=== PATIENT | female | born 1930 | race Caucasian/White ===

== ENCOUNTER 2018-02-01 08:36 | Emergency (ER) | payer MEDICARE, BC ==
[2018-02-01] MEDS ORDERED: Sodium Chloride 0.9% 10 ML Syringe FLUSH PRN (09:11)
[2018-02-01 09:57] LABS: ANION GAP 15.7
--- NOTE | 2018-02-01 10:02 | EDM.PDOC ---
ED HPI GENERAL MEDICAL PROBLEM - General Chief Complaint: Chest Pain Stated Complaint: SOB, CHEST PAIN [phone] Time Seen by Provider: 02/01/18 09:06 Source of Information: Reports: Patient, RN, RN Notes Reviewed History Limitations: Reports: No Limitations - History of Present Illness INITIAL COMMENTS - FREE TEXT/NARRATIVE: Pt to ER with c/o left sided chest pain beginning yesterday morning, progressively getting worse. Painful to take a deep breath. Points to pain under left breast. Denies radiation of pain. Rates pain 7-8/10, comes and goes. Denies fever, chills, N/V/D, cough. Onset: Gradual Onset Date: 01/31/18 - Related Data Allergies Allergy/AdvReac Type Severity Reaction Status Date / Time No Known Allergies Allergy Verified 11/14/15 09:35 Home Meds: Home Meds Allopurinol [Zyloprim] 300 mg PO DAILY 02/01/18 [History] Atenolol/Chlorthalidone [Tenoretic 50 Tablet] 1 ea PO DAILY 02/01/18 [History] Benazepril HCl [Lotensin] 40 mg PO DAILY 02/01/18 [History] Clopidogrel [Plavix] 75 mg PO DAILY 02/01/18 [History] atorvaSTATin Calcium [Lipitor] 40 mg PO DAILY 02/01/18 [History] glipiZIDE [Glipizide ER] 10 mg PO DAILY 02/01/18 [History] metFORMIN HCl [Metformin HCl] 1,000 mg PO BID 02/01/18 [History] Past Medical History HEENT History: Reports: Impaired Vision Cardiovascular History: Reports: High Cholesterol, Hypertension [employer]IST History: Reports: Musculoskeletal History: Reports: Osteoporosis Neurological History: Reports: CVA Endocrine/Metabolic History: Reports: Diabetes, Type II - Infectious Disease History Infectious Disease History: Reports: Chicken Pox, Influenza, Measles, Mumps - Past Surgical History HEENT Surgical History: Reports: Tonsillectomy Cardiovascular Surgical History: Reports: Coronary Artery Stent GI Surgical History: Reports: Cholecystectomy Female Surgical History: Reports: Section Social & Family History - Family History Family Medical History: Noncontributory - Tobacco Use Smoking Status *Q: Never Smoker - Caffeine Use Caffeine Use: Reports: Coffee - Recreational Drug Use Recreational Drug Use: No - Living Situation & Occupation Living situation: Reports: , with Spouse Occupation: Retired ED ROS GENERAL - Review of Systems Review Of Systems: ROS reveals no pertinent complaints other than HPI. ED EXAM, GENERAL - Physical Exam Exam: See Below Exam Limited By: No Limitations General Appearance: Alert, WD/WN, No Apparent Distress Eye Exam: Bilateral Eye: EOMI, Normal Inspection Ears: Normal External Exam, Hearing Grossly Normal Nose: Normal Inspection Throat/Mouth: Normal Inspection, Normal Voice, No Airway Compromise Head: Atraumatic, Normocephalic Neck: Normal Inspection, Supple, Non-Tender, Full Range of Motion Respiratory/Chest: No Respiratory Distress, No Accessory Muscle Use, Chest Non- Tender, Crackles (left base) Cardiovascular: Normal Peripheral Pulses, Regular Rate, Rhythm, No Edema, Systolic Murmur (+2) Peripheral Pulses: 2+: Radial (L), Radial (R) GI/Abdominal: Normal Bowel Sounds, Soft, Non-Tender (Female) Exam: Deferred Rectal (Female) Exam: Deferred Back Exam: Normal Inspection, Full Range of Motion Extremities: Normal Inspection, Normal Range of Motion, Non-Tender, No Pedal Edema Neurological: Alert, Oriented, CN II-XII Intact, Normal Cognition, Normal Gait, Normal Reflexes, No Motor/Sensory Deficits Psychiatric: Normal Affect, Normal Mood Skin Exam: Warm, Dry, Intact, Normal Color, No Rash Lymphatic: No Adenopathy EKG INTERPRETATION EKG Date: 02/01/18 Time: 09:25 Rhythm: Other (sinus rhythm with ventricular trigeminy) Rate (Beats/Min): 72 Comparison: NA - No Prior EKG Course - Vital Signs Last Recorded V/S: Last Vital Signs Temp 97 F 02/01/18 13:28 Pulse 64 02/01/18 13:28 Resp 15 02/01/18 13:28 BP 193/57 H 02/01/18 13:28 Pulse Ox 96 02/01/18 13:28 - Orders/Labs/Meds Orders: Active Orders 24 hr Category Date Time Status EKG Documentation Completion [RC] STAT Care 02/01/18 09:11 Active Peripheral IV Care [RC] . DIRECTED Care 02/01/18 09:11 Active UA W/MICROSCOPIC [URIN] Stat Lab 02/01/18 11:19 Ordered Heparin Sodium/0.45% NaCl [Heparin 25,000 Units in 1/2 Med 02/01/18 12:30 Active NS 500 ML] 25,000 units in 500 ml IV TITRATE Sodium Chloride 0.9% [Saline Flush] Med 02/01/18 09:11 Active 10 ml FLUSH ASDIRECTED PRN Peripheral IV Insertion Adult [OM.PC] Stat Oth 02/01/18 09:11 Ordered Medication Orders Heparin Sodium/Sodium Chloride (Heparin 25,000 Units In 1/2 Ns 500 Ml) 25,000 units in 500 mls @ 24.494 mls/hr IV TITRATE BENJAMÍN; Protocol Last Admin: 02/01/18 12:59 Dose: 18 units/kg/hr, 24.494 mls/hr Sodium Chloride (Saline Flush) 10 ml FLUSH ASDIRECTED PRN PRN Reason: Keep Vein Open Last Admin: 02/01/18 12:58 Dose: 10 ml Labs: Laboratory Tests 02/01/18 02/01/18 02/01/18 Range/Units 09:23 09:23 09:23 WBC 10.7 H (5.0-10.0) 10^3/uL RBC 4.01 L (4.2-5.4) 10^6/uL Hgb 12.3 (12.0-16.0) g/dL Hct 37.6 (37.0-47.0) % MCV 93.8 (80-100) fL MCH 30.7 (27.0-34.0) pg MCHC 32.7 L (33.0-35.0) g/dL Plt Count 121 L (150-450) 10^3/uL Neut % (Auto) 81.7 H (42.2-75.2) % Lymph % (Auto) 11.5 L (20.5-50.1) % Holt % (Auto) 6.2 (2-8) % Eos % (Auto) 0.5 L (1.0-3.0) % Baso % (Auto) 0.1 (0.0-1.0) % PT (9.0-12.0) SEC INR (0.9-1.2) D-Dimer, Quantitative > 5000 H (0-400) ng/mL Sodium 134 L (135-145) mmol/L Potassium 3.7 (3.6-5.0) mmol/L Chloride 100 L (101-111) mmol/L Carbon Dioxide 22.0 (21.0-31.0) mmol/L Anion Gap 15.7 BUN 29 H (7-18) mg/dL Creatinine 1.4 H (0.6-1.3) mg/dL Est Cr Clr Drug Dosing 22.81 mL/min Estimated GFR (MDRD) 36 BUN/Creatinine Ratio 20.71 Glucose 271 H (74-105) mg/dL Calcium 8.6 (8.4-10.2) mg/dl Total Bilirubin 1.2 H (0.2-1.0) mg/dL AST 19 (10-42) IU/L ALT 15 (10-60) IU/L Alkaline Phosphatase 111 (42-121) IU/L Troponin I 0.03 H* (0.00-0.02) ng/ml B-Natriuretic Peptide 222 H (0-100) pg/ml Total Protein 6.8 (6.7-8.2) g/dl Albumin 3.6 (3.2-5.5) g/dl Globulin 3.2 Albumin/Globulin Ratio 1.13 Urine Color (YELLOW) Urine Appearance (CLEAR) Urine pH (5.0-9.0) Ur Specific [place] (1.005-1.030) Urine Protein (NEGATIVE) Urine Glucose (UA) (NEGATIVE) Urine Ketones (NEGATIVE) Urine Occult Blood (NEGATIVE) Urine Nitrite (NEGATIVE) Urine Bilirubin (NEGATIVE) Urine Urobilinogen (0.2-1.0) mg/dL Ur Leukocyte Esterase (NEGATIVE) Urine RBC /HPF Urine WBC (0-5/HPF) /HPF Ur Epithelial Cells /HPF Amorphous Sediment (0/HPF) /HPF Urine Bacteria (0-FEW/HPF) /HPF Hyaline Casts /LPF Urine Mucus /LPF 02/01/18 02/01/18 Range/Units 09:23 11:19 WBC (5.0-10.0) 10^3/uL RBC (4.2-5.4) 10^6/uL Hgb (12.0-16.0) g/dL Hct (37.0-47.0) % MCV (80-100) fL MCH (27.0-34.0) pg MCHC (33.0-35.0) g/dL Plt Count (150-450) 10^3/uL Neut % (Auto) (42.2-75.2) % Lymph % (Auto) (20.5-50.1) % Holt % (Auto) (2-8) % Eos % (Auto) (1.0-3.0) % Baso % (Auto) (0.0-1.0) % PT 10.1 (9.0-12.0) SEC INR 1.0 (0.9-1.2) D-Dimer, Quantitative (0-400) ng/mL Sodium (135-145) mmol/L Potassium (3.6-5.0) mmol/L Chloride (101-111) mmol/L Carbon Dioxide (21.0-31.0) mmol/L Anion Gap BUN (7-18) mg/dL Creatinine (0.6-1.3) mg/dL Est Cr Clr Drug Dosing mL/min Estimated GFR (MDRD) BUN/Creatinine Ratio Glucose (74-105) mg/dL Calcium (8.4-10.2) mg/dl Total Bilirubin (0.2-1.0) mg/dL AST (10-42) IU/L ALT (10-60) IU/L Alkaline Phosphatase (42-121) IU/L Troponin I (0.00-0.02) ng/ml B-Natriuretic Peptide (0-100) pg/ml Total Protein (6.7-8.2) g/dl Albumin (3.2-5.5) g/dl Globulin Albumin/Globulin Ratio Urine Color Yellow (YELLOW) Urine Appearance Clear (CLEAR) Urine pH 5.5 (5.0-9.0) Ur Specific [place] 1.020 (1.005-1.030) Urine Protein 30 H (NEGATIVE) Urine Glucose (UA) 250 H (NEGATIVE) Urine Ketones Negative (NEGATIVE) Urine Occult Blood Negative (NEGATIVE) Urine Nitrite Negative (NEGATIVE) Urine Bilirubin Negative (NEGATIVE) Urine Urobilinogen 0.2 (0.2-1.0) mg/dL Ur Leukocyte Esterase Small H (NEGATIVE) Urine RBC 0-5 /HPF Urine WBC 5-10 H (0-5/HPF) /HPF Ur Epithelial Cells Few /HPF Amorphous Sediment Few (0/HPF) /HPF Urine Bacteria Few (0-FEW/HPF) /HPF Hyaline Casts Few H /LPF Urine Mucus Few H /LPF Meds: Medications Generic Name Dose Route Start Last Admin Trade Name Freq PRN Reason Stop Dose Admin Heparin Sodium/Sodium Chloride 25,000 units in 500 mls @ 24.494 mls/hr 12:30 02/01/18 12:59 Heparin 25,000 Units In 1/2 Ns 500 Ml IV 18 units/kg/hr TITRATE BENJAMÍN 24.494 mls/hr Administration Protocol 18 UNITS/KG/HR Sodium Chloride 10 ml 02/01/18 09:11 02/01/18 12:58 Saline Flush FLUSH 10 ml ASDIRECTED PRN Administration Keep Vein Open Discontinued Medications Generic Name Dose Route Start Last Admin Trade Name Freq PRN Reason Stop Dose Admin Heparin Sodium (Porcine) 5,000 units 02/01/18 12:34 02/01/18 12:58 Heparin Sodium IVPUSH 02/01/18 12:35 5,000 units ONETIME ONE Administration Iopamidol 100 ml 02/01/18 11:34 Isovue-370 (76%) IVPUSH 02/01/18 11:35 ONETIME ONE - Radiology Interpretation Free Text/Narrative:: Chest xray: No acute findings See Rad report CT Chest with contrast: 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 Shanks at [facility] in [place] who agreed to accept the patient at this time. Departure - Departure Time of Disposition: 12:55 Disposition: DC/[facility]fer to [facility] 02 Reason for Transfer *Q: Other Condition: Fair Clinical Impression: Pulmonary embolism and infarction Forms: ED Department Discharge, Interfacility Transfer EMTSAIDA - My Orders Last 24 Hours: My Active Orders 02/01/18 09:11 EKG Documentation Completion [RC] STAT Peripheral IV Care [RC] . DIRECTED Sodium Chloride 0.9% [Saline Flush] 10 ml FLUSH ASDIRECTED PRN Peripheral IV Insertion Adult [OM.PC] Stat 02/01/18 11:19 UA W/MICROSCOPIC [URIN] Stat 02/01/18 12:30 Heparin Sodium/0.45% NaCl [Heparin 25,000 Units in 1/2 NS 500 ML] 25,000 units in 500 ml IV TITRATE - Assessment/Plan Last 24 Hours: My Active Orders 02/01/18 09:11 EKG Documentation Completion [RC] STAT Peripheral IV Care [RC] . DIRECTED Sodium Chloride 0.9% [Saline Flush] 10 ml FLUSH ASDIRECTED PRN Peripheral IV Insertion Adult [OM.PC] Stat 02/01/18 11:19 UA W/MICROSCOPIC [URIN] Stat 02/01/18 12:30 Heparin Sodium/0.45% NaCl [Heparin 25,000 Units in 1/2 NS 500 ML] 25,000 units in 500 ml IV TITRATE
--- NOTE | 2018-02-01 10:46 | CR ---
CLINICAL HISTORY: 88-year-old female with chest pain. INTERPRETATION: External zinc miner blasting leads. Senescent changes ectatic aorta and multilevel disc d isease arthritic dorsal spine. Normal cardiac silhouette without cephalization of flow, signs of alveolar edema or dependent effusio n. No lung mass, hilar lymphadenopathy or focal lobar pneumonia. No atelectasis/collapse. No pneumothorax.
[2018-02-01] MEDS ORDERED: Iopamidol 755 Mg/ML 100 ML Bottle IVPUSH ONE (11:34)
[2018-02-01] MEDS ORDERED: Heparin Sodium/0.45% NaCl 25,000 UNITS/500 ML BAG IV SCH (12:30)
[2018-02-01] MEDS ORDERED: Heparin Sodium 5,000 Units/ML Vial IVPUSH ONE (12:34)
--- NOTE | 2018-02-01 12:55 | CT ---
CLINICAL HISTORY: 88-year-old hypertensive 150 pound diabetic female in the emergency department comp laining of shortness of breath and left chest pain (serum D dimer is greater than 5000). Plain AP mic st radiograph unremarkable. SCAN TECHNIQUE: Volume acquisition of data from the chest (bony thorax, lungs and mediastinum) obtain ed during the intravenous administration 65 cc nonionic 370 contrast (4 cc/s via injector) while the patient was lying supine on the Siemens multislice scanner [facility]. All data archived in the PACS system for storage, reformatting axial/sagittal/coronal planes a nd study. INTERPRETATION: Abnormal. 1. Large filling defects involving the main pulmonary artery segments, bilaterally ("saddle" thrombus ). 2. Small peripheral wedge shaped pleural-based infiltrate/infarct left midlung, anteriorly, associate d with small dependent effusion. 3. Mild cardiomegaly. No pericardial effusion and no cephalization of vascular flow or signs of alveo lar edema. 4. No parenchymal lung nodule or mass lesion, significant hilar/mediastinal lymphadenopathy or focal lobar pneumonia. 5. Kyphoscoliosis, multilevel disc disease and hypertrophic spondylosis dorsal lumbar spine. 6. Liver, stomach, spleen, unremarkable (where visualized). 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
[2018-02-01 13:28] VITALS: BP 193/57
== END 2018-02-01 13:45 ==
LOC: DL.ED 08:36
DX: I26.99 Other pulmonary embolism without acute cor pulmonale (principal); E78.00 Pure hypercholesterolemia, unspecified; I10 Essential (primary) hypertension; E11.9 Type 2 diabetes mellitus without complications; Z86.73 Personal history of transient ischemic attack (TIA), and cerebral infarction without residual deficits; Z79.01 Long term (current) use of anticoagulants; Z79.899 Other long term (current) drug therapy; Z79.84 Long term (current) use of oral hypoglycemic drugs
CPT/HCPCS: 36415; 71045; 71260; 80053; 81001; 83880; 84484; 85025; 85379; 85610; 93005; 93010; 96365; 99285; J1644; J7050; Q9967

== ENCOUNTER 2020-10-19 22:24 | Observation (INO) | payer MEDICARE, BC ==
--- NOTE | 2020-10-19 23:16 | EDM.PDOC ---
ED HPI GENERAL MEDICAL PROBLEM - General Chief Complaint: Respiratory Problem Stated Complaint: TROUBLE BREATHING Time Seen by Provider: 10/19/20 23:00 Source of Information: Reports: Patient History Limitations: Reports: No Limitations - History of Present Illness INITIAL COMMENTS - FREE TEXT/NARRATIVE: This 89 yo female patient was brought to the ED by her [id number] due to increased shortness of breath. The patient reports her shortness of breath has been getting worse throughout the day. The patient reports she does have a history of CHF, but has not been taking her water pills for the past 2 days due to forgetting to take her medications. The patient reports her water pills have not been reducing her swelling in her legs over the past couple of weeks. The patient has not followed up with her primary care facility with increased swelling. The patient reports she just returned to the [facility] after being in [place] through the winter months. The patient reports she did have several stents placed about 2 months ago. Duration: Day(s):, Constant, Getting Worse Location: Reports: Chest Quality: Reports: Other Severity: Moderate Improves with: Reports: None Worsens with: Reports: None Context: Reports: Other Associated Symptoms: Reports: Shortness of Breath - Related Data Allergies Allergy/AdvReac Type Severity Reaction Status Date / Time No Known Allergies Allergy Verified 10/19/20 22:38 Home Meds: Home Meds Atenolol/Chlorthalidone [Tenoretic 50 Tablet] 1 ea PO DAILY 02/01/18 [History] Benazepril HCl [Lotensin] 40 mg PO DAILY 02/01/18 [History] Clopidogrel [Plavix] 75 mg PO DAILY 02/01/18 [History] allopurinoL [Zyloprim] 300 mg PO DAILY 02/01/18 [History] atorvaSTATin Calcium [Lipitor] 40 mg PO DAILY 02/01/18 [History] glipiZIDE [Glipizide ER] 10 mg PO DAILY 02/01/18 [History] metFORMIN HCl [Metformin HCl] 1,000 mg PO BID 02/01/18 [History] Aspirin [Aspirin EC] 81 mg PO DAILY 10/19/20 [History] Furosemide [Lasix] 20 mg PO BID 10/19/20 [History] Spironolactone [Aldactone] 25 mg PO DAILY 10/19/20 [History] Past Medical History HEENT History: Reports: Impaired Vision Cardiovascular History: Reports: Heart Failure, High Cholesterol, Hypertension 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: Musculoskeletal History: Reports: Osteoporosis Neurological History: Reports: CVA Endocrine/Metabolic History: Reports: Diabetes, Type II - Infectious Disease History Infectious Disease History: Reports: Chicken Pox, Influenza, Measles, Mumps - Past Surgical History HEENT Surgical History: Reports: Tonsillectomy Cardiovascular Surgical History: Reports: Coronary Artery Stent GI Surgical History: Reports: Cholecystectomy Female Surgical History: Reports: Section Social & Family History - Family History Family Medical History: No Pertinent Family History - Tobacco Use Tobacco Use Status *Q: Never Tobacco User Second Hand Smoke Exposure: No - Caffeine Use Caffeine Use: Reports: Coffee - Recreational Drug Use Recreational Drug Use: No - Living Situation & Occupation Living situation: Reports: , with Spouse Occupation: Retired ED ROS GENERAL - Review of Systems Review Of Systems: Comprehensive ROS is negative, except as noted in HPI. ED EXAM, GENERAL - Physical Exam Exam: See Below Exam Limited By: No Limitations General Appearance: Alert, WD/WN, Moderate Distress Eye Exam: Bilateral Eye: EOMI, Normal Inspection, PERRL Ears: Normal External Exam, Normal Canal, Hearing Grossly Normal, Normal TMs Nose: Normal Inspection, Normal Mucosa, No Blood Throat/Mouth: Normal Inspection, Normal Lips, Normal Teeth, Normal Gums, Normal Oropharynx, Normal Voice, No Airway Compromise Head: Atraumatic, Normocephalic Neck: Normal Inspection, Supple, Non-Tender, Full Range of Motion Respiratory/Chest: No Respiratory Distress, Decreased Breath Sounds Cardiovascular: Normal Peripheral Pulses, Regular Rate, Rhythm, No Gallop, No JVD, No Rub GI/Abdominal: Normal Bowel Sounds, Soft, Non-Tender, No Organomegaly, No Distention, No Abnormal Bruit, No Mass (Female) Exam: Deferred Rectal (Female) Exam: Deferred Back Exam: Normal Inspection, Full Range of Motion, NT Extremities: Normal Range of Motion, Non-Tender, Leg Pain (The patient reports she has been having left upper leg pain for the past couple of months that has been worked up, but no source of her pain has been identified. ), Other (3+ pedal edema) Neurological: Alert, Oriented, CN II-XII Intact, Normal Cognition, Normal Gait, Normal Reflexes, No Motor/Sensory Deficits Psychiatric: Normal Affect, Normal Mood Skin Exam: Warm, Dry, Intact, Normal Color, No Rash Lymphatic: No Adenopathy #1 Interpretation Rhythm: NSR Rate (Beats/Min): 100 [place]: Normal P-Wave: Present QRS: LBBB ST-T: Normal QT: Normal Comparison: NA - No Prior EKG Course - Vital Signs Last Recorded V/S: Last Vital Signs Temp 36.1 C 10/19/20 22:38 Pulse 98 10/19/20 22:38 Resp 20 10/19/20 22:38 BP 158/99 H 10/19/20 22:38 Pulse Ox 99 10/19/20 22:38 - Orders/Labs/Meds Orders: Active Orders 24 hr Category Date Time Status Admission Diagnosis [ADT] Urgent ADT 10/20/20 00:36 Ordered Admission Status [Patient Status] [ADT] Routine ADT 10/20/20 00:36 Active EKG Documentation Completion [RC] STAT Care 10/19/20 22:37 Active Chest wo Cont [CT] Urgent Exams 10/20/20 00:15 Ordered CULTURE BLOOD [BC] Stat Lab 10/19/20 22:50 Received Anderson [CORONAVIRUS COVID-19 HENOK] [MOLEC] Urgent Lab 10/20/20 00:40 Ordered UA RFX LATANYA AND CULT IF INDIC [URIN] Urgent Lab 10/19/20 22:37 Ordered Labs: Laboratory Tests 10/19/20 10/19/20 10/19/20 Range/Units 22:50 22:50 22:50 WBC 7.0 (5.0-10.0) 10^3/uL RBC 3.82 L (4.2-5.4) 10^6/uL Hgb 11.7 L (12.0-16.0) g/dL Hct 36.0 L (37.0-47.0) % MCV 94.2 (80-100) fL MCH 30.6 (27.0-34.0) pg MCHC 32.5 L (33.0-35.0) g/dL Plt Count 179 (150-450) 10^3/uL Neut % (Auto) 69.3 (42.2-75.2) % Lymph % (Auto) 21.9 (20.5-50.1) % [place] % (Auto) 4.4 (2-8) % Eos % (Auto) 3.8 H (1.0-3.0) % Baso % (Auto) 0.6 (0.0-1.0) % D-Dimer, Quantitative 1060 H (0-400) ng/mL Sodium 138 (136-145) mmol/L Potassium 4.3 (3.5-5.1) mmol/L Chloride 102 (98-107) mmol/L Carbon Dioxide 22 (21-32) mmol/L Anion Gap 18.3 H (7-13) mEq/L BUN 44 H (7-18) mg/dL Creatinine 2.18 H (0.55-1.02) mg/dL Est Cr Clr Drug Dosing 14.11 mL/min Estimated GFR (MDRD) 21 BUN/Creatinine Ratio 20.2 (No establ ref range) Glucose 241 H (70-99) mg/dL Lactic Acid (0.4-2.0) mmol/L Calcium 8.8 (8.5-10.1) mg/dL Total Bilirubin 0.6 (0.2-1.0) mg/dL AST 28 (15-37) U/L ALT 71 H (14-59) U/L Alkaline Phosphatase 144 H (46-116) U/L Troponin I 0.048 (0.000-0.056) ng/mL B-Natriuretic Peptide 629 H (0-100) pg/ml Total Protein 7.2 (6.4-8.2) g/dL Albumin 3.4 (3.4-5.0) g/dL Globulin 3.8 Albumin/Globulin Ratio 0.9 10/19/20 Range/Units 22:50 WBC (5.0-10.0) 10^3/uL RBC (4.2-5.4) 10^6/uL Hgb (12.0-16.0) g/dL Hct (37.0-47.0) % MCV (80-100) fL MCH (27.0-34.0) pg MCHC (33.0-35.0) g/dL Plt Count (150-450) 10^3/uL Neut % (Auto) (42.2-75.2) % Lymph % (Auto) (20.5-50.1) % [place] % (Auto) (2-8) % Eos % (Auto) (1.0-3.0) % Baso % (Auto) (0.0-1.0) % D-Dimer, Quantitative (0-400) ng/mL Sodium (136-145) mmol/L Potassium (3.5-5.1) mmol/L Chloride (98-107) mmol/L Carbon Dioxide (21-32) mmol/L Anion Gap (7-13) mEq/L BUN (7-18) mg/dL Creatinine (0.55-1.02) mg/dL Est Cr Clr Drug Dosing mL/min Estimated GFR (MDRD) BUN/Creatinine Ratio (No establ ref range) Glucose (70-99) mg/dL Lactic Acid 1.8 (0.4-2.0) mmol/L Calcium (8.5-10.1) mg/dL Total Bilirubin (0.2-1.0) mg/dL AST (15-37) U/L ALT (14-59) U/L Alkaline Phosphatase (46-116) U/L Troponin I (0.000-0.056) ng/mL B-Natriuretic Peptide (0-100) pg/ml Total Protein (6.4-8.2) g/dL Albumin (3.4-5.0) g/dL Globulin Albumin/Globulin Ratio Meds: Medications Discontinued Medications Generic Name Dose Route Start Last Admin Trade Name Freq PRN Reason Stop Dose Admin Furosemide 60 mg 10/20/20 00:17 Furosemide 40 Mg/4 Ml Vial IVPUSH 10/20/20 00:18 NOW ONE Ceftriaxone Sodium 1 gm/ 50 mls @ 100 mls/hr 10/20/20 00:01 10/20/20 00:13 Sodium Chloride IV 10/20/20 00:30 100 mls/hr ONETIME ONE Administration - Radiology Interpretation Free Text/Narrative:: [facility] [place] [facility] Final Radiology Report Call: [phone] assistance Online chat: [email or web address] Name: ARIEL OROURKE Age: 89Years F Date: 10/19/2020 SSN: -- : [id number] Study: CR CHEST 1V FRONTAL Requesting Physician: Teddy Foote Images: 1 Addl Studies: Provided Clinical History: short of breath Contrast: Contrast Medium: Contrast Amount: Contrast Method: CONFIDENTIALITY STATEMENT This report is intended only for use by the referring physician, and only in accordance with law. If you received this in error, call [phone]. Page 1 of 1 PROCEDURE INFORMATION: Exam: XR Chest Exam date and time: 10/19/2020 10:58 PM Age: 89 years old Clinical indication: Shortness of breath; Additional info: Short of breath TECHNIQUE: Imaging protocol: XR of the chest. Views: 1 view. COMPARISON: CT Chest w Cont 02/01/2018 11:39 AM FINDINGS: Lungs: There is a right perihilar infiltrate. Pleural spaces: Unremarkable. No pleural effusion. No pneumothorax. Heart/Mediastinum: There is mild cardiomegaly. Bones/joints: Unremarkable. IMPRESSION: 1. Right perihilar infiltrate concerning for pneumonia, possibly aspiration pneumonia. 2. Mild cardiomegaly. Thank you for allowing us to participate in the care of your patient. Dictated and Authenticated by: Rush Chowdhury DO 10/19/2020 11:19 PM Central Time ([place] & [place]) Departure - Departure Time of Disposition: 00:44 Disposition: Refer to Observation Condition: Fair Clinical Impression: CHF (congestive heart failure) Qualifiers: Heart failure type: unspecified Heart failure chronicity: acute on chronic Qualified Code(s): I50.9 - Heart failure, unspecified Pneumonia Qualifiers: Pneumonia type: due to unspecified organism Laterality: right Lung location: lower lobe of lung Qualified Code(s): J18.9 - Pneumonia, unspecified organism - Discharge Information *PRESCRIPTION DRUG MONITORING PROGRAM REVIEWED*: Not Applicable *COPY OF PRESCRIPTION DRUG MONITORING REPORT IN PATIENT ZOHRA: Not Applicable Care Plan Goals: Discussed the patient's history, examination, lab and x-ray results with Dr. Conn. Dr. Conn accepted the patient for continued evaluation and further management as an inpatient at [facility] in [place]. Sepsis Event Note (ED) - Evaluation Sepsis Screening Result: No Definite Risk - Focused Exam Vital Signs: Vital Signs Temp Pulse Resp BP Pulse Ox 10/19/20 22:38 36.1 C 98 20 158/99 H 99 - My Orders Last 24 Hours: My Active Orders 10/19/20 22:37 EKG Documentation Completion [RC] STAT UA RFX LATANYA AND CULT IF INDIC [URIN] Urgent 10/19/20 22:50 CULTURE BLOOD [BC] Stat 10/20/20 00:15 Chest wo Cont [CT] Urgent 10/20/20 00:36 Admission Diagnosis [ADT] Urgent Admission Status [Patient Status] [ADT] Routine 10/20/20 00:40 Anderson [CORONAVIRUS COVID-19 HENOK] [MOLEC] Urgent - Assessment/Plan Last 24 Hours: My Active Orders 10/19/20 22:37 EKG Documentation Completion [RC] STAT UA RFX LATANYA AND CULT IF INDIC [URIN] Urgent 10/19/20 22:50 CULTURE BLOOD [BC] Stat 10/20/20 00:15 Chest wo Cont [CT] Urgent 10/20/20 00:36 Admission Diagnosis [ADT] Urgent Admission Status [Patient Status] [ADT] Routine 10/20/20 00:40 Anderson [CORONAVIRUS COVID-19 HENOK] [MOLEC] Urgent
[2020-10-19 23:18] LABS: ANION GAP 18.3 mEq/L (7-13)
--- NOTE | 2020-10-19 23:20 | CR ---
PROCEDURE INFORMATION: Exam: XR Chest Exam date and time: 10/19/2020 10:58 PM Age: 89 years old Clinical indication: Shortness of breath; Additional info: Short of breath TECHNIQUE: Imaging protocol: XR of the chest. Views: 1 view. COMPARISON: CT Chest w Cont 02/01/2018 11:39 AM FINDINGS: Lungs: There is a right perihilar infiltrate. Pleural spaces: Unremarkable. No pleural effusion. No pneumothorax. Heart/Mediastinum: There is mild cardiomegaly. Bones/joints: Unremarkable. IMPRESSION: 1. Right perihilar infiltrate concerning for pneumonia, possibly aspiration pneumonia. 2. Mild cardiomegaly.
[2020-10-20] MEDS ORDERED: cefTRIAXone 1 GM in Sodium Chloride 0.9% 50 ML IV ONE (00:01)
[2020-10-20] MEDS ORDERED: Furosemide 40 MG/4 ML VIAL IVPUSH ONE (00:17)
[2020-10-20] MEDS ORDERED: Ondansetron 4 MG/2 ML SDV IVPUSH PRN (00:47)
[2020-10-20] MEDS ORDERED: Acetaminophen 325 MG Tab PO PRN (00:47)
[2020-10-20] MEDS ORDERED: Docusate Sodium 100 MG Cap PO PRN (00:47)
[2020-10-20] MEDS ORDERED: Sodium Chloride 0.9% 10 ML Syringe FLUSH PRN (00:49)
[2020-10-20] MEDS ORDERED: Glucagon,Human Recombinant 1 MG Vial IM PRN (00:51)
[2020-10-20] MEDS ORDERED: 50% Dextrose in Water 50 ML Syringe IV PRN (00:51)
--- NOTE | 2020-10-20 00:58 | PCM.HP ---
H&P History of Present Illness - General Date of Service: 10/20/20 Admit Problem/Dx: Admission Diagnosis/Problem Admission Diagnosis/Problem Mild acute decompensation of congestive heart failure (unknown ejection fraction) Shortness of breath without hypoxia Chronic kidney disease stage IV. Source of Information: Patient, Family, Provider (Emergency room personnel) - History of Present Illness Initial Comments - Free Text/Narative: Patient is an 89-year-old female with a past medical history as listed below presents to the [facility] emergency department with her daughter in law due to a chief complaint shortness of breath. Patient states that she was in her usual state of health up until 2 days ago when she started noticing shortness of breath both with exertion and at rest. She was also noted increased girth in the lower extremities since this past Sunday. Her [id number] concurs with that statement. She has not specifically weighed herself. Her daughter thinks that she has gained weight. She self-admittedly has not taken any of her medications in at least 48 hours. They are unable to provide a medication list at this time. They believe that diuretics are part of her regimen. Exacerbating factors include lying flat, however she does sleep in a chair most often. She denies any chest pain, chest pressure, pleurisy, nausea/vomiting, abdominal discomfort or difficulties with voiding. The patient has recently returned from a long road trip from [place] where she has been spending half of the year. She denies any calf pain and pleurisy as previously mentioned. In the emergency department, she appeared to be nontoxic. She was not hypoxic nor was she tachycardic. Labs were relatively unremarkable with the exception of known chronic kidney disease. In comparison to previous numbers at our facility in 2018 she would be considered an acute kidney injury, but her [id number] states that her kidneys have gotten worse and her renal function is about 25%. In the ER tonight her GFR is 21. Her chest x-ray was abnormal. Please see below for formal reading. Due to that reading the patient was given Rocephin for empiric coverage. Patient was also given Lasix 40 mg IV due to a component of acutely decompensated congestive heart failure. D-dimer was checked which was above age-appropriate cutoff. Patient has been sent to radiology at current time for CAT scan of the chest without IV contrast due to renal function to rule out large central PE burden. Patient was referred to the internal medicine service due to the uncertainty of how she would do at home based upon her memory and taking her medications. An observation admission was requested. This has been granted. CODE STATUS: Full code according to the patient. - Related Data Allergies/Adverse Reactions: Allergies Allergy/AdvReac Type Severity Reaction Status Date / Time No Known Allergies Allergy Verified 10/19/20 22:38 Home Medications: Home Meds Atenolol/Chlorthalidone [Tenoretic 50 Tablet] 1 ea PO DAILY 02/01/18 [History] Benazepril HCl [Lotensin] 40 mg PO DAILY 02/01/18 [History] Clopidogrel [Plavix] 75 mg PO DAILY 02/01/18 [History] allopurinoL [Zyloprim] 300 mg PO DAILY 02/01/18 [History] atorvaSTATin Calcium [Lipitor] 40 mg PO DAILY 02/01/18 [History] glipiZIDE [Glipizide ER] 10 mg PO DAILY 02/01/18 [History] metFORMIN HCl [Metformin HCl] 1,000 mg PO BID 02/01/18 [History] Aspirin [Aspirin EC] 81 mg PO DAILY 10/19/20 [History] Furosemide [Lasix] 20 mg PO BID 10/19/20 [History] Spironolactone [Aldactone] 25 mg PO DAILY 10/19/20 [History] Past Medical History HEENT History: Reports: Impaired Vision Cardiovascular History: Reports: Heart Failure, High Cholesterol, Hypertension, TX. Denies: Blood Clots/VTE/DVT Other Cardiovascular History: PCI with at least 7 stents. Had a recent cardiac catheterization within the past month, with what sounds like requirement for angioplasty. CPO History: Reports: Musculoskeletal History: Reports: Osteoporosis Neurological History: Reports: CVA, Parkinson's Endocrine/Metabolic History: Reports: Diabetes, Type II - Infectious Disease History Infectious Disease History: Reports: Chicken Pox, Influenza, Measles, Mumps - Past Surgical History HEENT Surgical History: Reports: Tonsillectomy Cardiovascular Surgical History: Reports: Coronary Artery Stent GI Surgical History: Reports: Cholecystectomy Female Surgical History: Reports: Section Social & Family History - Family History Family Medical History: No Pertinent Family History - Tobacco Use Tobacco Use Status *Q: Never Tobacco User Second Hand Smoke Exposure: No - Caffeine Use Caffeine Use: Reports: Coffee - Alcohol Use Alcohol Use Comment: Minimal. - Recreational Drug Use Recreational Drug Use: No - Living Situation & Occupation Living situation: Reports: , with Spouse Occupation: Retired H&P Review of Systems - Review of Systems: Review Of Systems: Comprehensive ROS is negative, except as noted in HPI. Exam - Exam Exam: See Below - Vital Signs Vital Signs: Last Vital Signs Temp 97 F 10/19/20 22:38 Pulse 98 10/19/20 22:38 Resp 20 10/19/20 22:38 BP 158/99 H 10/19/20 22:38 Pulse Ox 99 10/19/20 22:38 Weight: 132 lb - Exam Quality Assessment: No: Supplemental Oxygen General: Alert, Oriented HEENT: Conjunctiva Clear, Mucosa Moist & [place], Nares Patent, Posterior Pharynx C lear Neck: Supple, Trachea Midline. No: Lymphadenopathy, JVD Lungs: Rales (Bibasilar rales.). No: Rhonchi, Stridor, Wheezing Cardiovascular: Regular Rate (EKG shows left bundle branch block. Normal rate.), Regular Rhythm GI/Abdominal Exam: Normal Bowel Sounds, Soft, Non-Tender, No Distention Extremities: Normal Inspection, Pedal Edema (3+ pitting edema up to the midshin bilaterally.) Skin: Warm Neurological: Cranial Nerves Intact Neuro Extensive - Mental Status: Alert, Oriented x3, Normal Mood/Affect - Patient Data Lab Results Last 24 hrs: Laboratory Results - last 24 hr 10/19/20 10/19/20 10/19/20 Range/Units 22:50 22:50 22:50 WBC 7.0 (5.0-10.0) 10^3/uL RBC 3.82 L (4.2-5.4) 10^6/uL Hgb 11.7 L (12.0-16.0) g/dL Hct 36.0 L (37.0-47.0) % MCV 94.2 (80-100) fL MCH 30.6 (27.0-34.0) pg MCHC 32.5 L (33.0-35.0) g/dL Plt Count 179 (150-450) 10^3/uL Neut % (Auto) 69.3 (42.2-75.2) % Lymph % (Auto) 21.9 (20.5-50.1) % [place] % (Auto) 4.4 (2-8) % Eos % (Auto) 3.8 H (1.0-3.0) % Baso % (Auto) 0.6 (0.0-1.0) % D-Dimer, Quantitative 1060 H (0-400) ng/mL Sodium 138 (136-145) mmol/L Potassium 4.3 (3.5-5.1) mmol/L Chloride 102 (98-107) mmol/L Carbon Dioxide 22 (21-32) mmol/L Anion Gap 18.3 H (7-13) mEq/L BUN 44 H (7-18) mg/dL Creatinine 2.18 H (0.55-1.02) mg/dL Est Cr Clr Drug Dosing 14.11 mL/min Estimated GFR (MDRD) 21 BUN/Creatinine Ratio 20.2 (No establ ref range) Glucose 241 H (70-99) mg/dL Lactic Acid (0.4-2.0) mmol/L Calcium 8.8 (8.5-10.1) mg/dL Total Bilirubin 0.6 (0.2-1.0) mg/dL AST 28 (15-37) U/L ALT 71 H (14-59) U/L Alkaline Phosphatase 144 H (46-116) U/L Troponin I 0.048 (0.000-0.056) ng/mL B-Natriuretic Peptide 629 H (0-100) pg/ml Total Protein 7.2 (6.4-8.2) g/dL Albumin 3.4 (3.4-5.0) g/dL Globulin 3.8 Albumin/Globulin Ratio 0.9 10/19/20 Range/Units 22:50 WBC (5.0-10.0) 10^3/uL RBC (4.2-5.4) 10^6/uL Hgb (12.0-16.0) g/dL Hct (37.0-47.0) % MCV (80-100) fL MCH (27.0-34.0) pg MCHC (33.0-35.0) g/dL Plt Count (150-450) 10^3/uL Neut % (Auto) (42.2-75.2) % Lymph % (Auto) (20.5-50.1) % [place] % (Auto) (2-8) % Eos % (Auto) (1.0-3.0) % Baso % (Auto) (0.0-1.0) % D-Dimer, Quantitative (0-400) ng/mL Sodium (136-145) mmol/L Potassium (3.5-5.1) mmol/L Chloride (98-107) mmol/L Carbon Dioxide (21-32) mmol/L Anion Gap (7-13) mEq/L BUN (7-18) mg/dL Creatinine (0.55-1.02) mg/dL Est Cr Clr Drug Dosing mL/min Estimated GFR (MDRD) BUN/Creatinine Ratio (No establ ref range) Glucose (70-99) mg/dL Lactic Acid 1.8 (0.4-2.0) mmol/L Calcium (8.5-10.1) mg/dL Total Bilirubin (0.2-1.0) mg/dL AST (15-37) U/L ALT (14-59) U/L Alkaline Phosphatase (46-116) U/L Troponin I (0.000-0.056) ng/mL B-Natriuretic Peptide (0-100) pg/ml Total Protein (6.4-8.2) g/dL Albumin (3.4-5.0) g/dL Globulin Albumin/Globulin Ratio Result Diagrams: 10/19/20 22:50 10/19/20 22:50 Imaging Impressions Last 24 hrs: Chest x-ray personally reviewed. Formal reading notes right basilar infiltrate with clinical correlation recommended for pneumonia/aspiration. Problem List Initiated/Reviewed/Updated: Yes Orders Last 24hrs: Active Orders 24 hr Category Date Time Status Admission Diagnosis [ADT] Urgent ADT 10/20/20 00:36 Ordered Admission Status [Patient Status] [ADT] Routine ADT 10/20/20 00:36 Active Ambulate [RC] PER UNIT ROUTINE Care 10/20/20 00:48 Active Antiembolic Devices [RC] PER UNIT ROUTINE Care 10/20/20 00:49 Active EKG Documentation Completion [RC] STAT Care 10/19/20 22:37 Active Height and Weight [RC] DAILY Care 10/20/20 00:47 Active Intake and Output [RC] QSHIFT Care 10/20/20 00:47 Active Oxygen Therapy [RC] PRN Care 10/20/20 00:47 Active Pulse Oximetry [RC] PRN Care 10/20/20 00:47 Active Up With Assistance [RC] ASDIRECTED Care 10/20/20 00:47 Active VTE/DVT Education [RC] PER UNIT ROUTINE Care 10/20/20 00:47 Active Vital Signs [RC] Q4H Care 10/20/20 00:47 Active Vital Signs [RC] Q8H Care 10/20/20 00:47 Active 2 Gram Sodium Diet [DIET] Diet 10/20/20 Breakfast Active Chest wo Cont [CT] Urgent Exams 10/20/20 00:15 Ordered BASIC METABOLIC PANEL,BMP [CHEM] DAILY Lab 10/20/20 06:00 Ordered BASIC METABOLIC PANEL,BMP [CHEM] DAILY Lab 10/21/20 06:00 Ordered BASIC METABOLIC PANEL,BMP [CHEM] DAILY Lab 10/22/20 06:00 Ordered BASIC METABOLIC PANEL,BMP [CHEM] DAILY Lab 10/23/20 06:00 Ordered BASIC METABOLIC PANEL,BMP [CHEM] DAILY Lab 10/24/20 06:00 Ordered CBC WITH AUTO DIFF [HEME] DAILY Lab 10/20/20 06:00 Ordered CBC WITH AUTO DIFF [HEME] DAILY Lab 10/21/20 06:00 Ordered CBC WITH AUTO DIFF [HEME] DAILY Lab 10/22/20 06:00 Ordered CBC WITH AUTO DIFF [HEME] DAILY Lab 10/23/20 06:00 Ordered CBC WITH AUTO DIFF [HEME] DAILY Lab 10/24/20 06:00 Ordered CULTURE BLOOD [BC] Stat Lab 10/19/20 22:50 Received Anderson [CORONAVIRUS COVID-19 HENOK] [MOLEC] Urgent Lab 10/20/20 00:43 Received UA RFX LATANYA AND CULT IF INDIC [URIN] Urgent Lab 10/19/20 22:37 Ordered Acetaminophen [TylenoL] Med 10/20/20 00:47 Active 650 mg PO Q4H PRN Aspirin [Halfprin] Med 10/20/20 09:00 Active 81 mg PO DAILY Clopidogrel [Plavix] Med 10/20/20 09:00 Active 75 mg PO DAILY Dextrose 50% in Water Med 10/20/20 00:51 Active 50 ml IV Q15M PRN Docusate Sodium [Colace] Med 10/20/20 00:47 Active 100 mg PO BID PRN Furosemide [Lasix] Med 10/20/20 09:00 Active 40 mg IVPUSH BID Glucagon,Human Recombinant [GlucaGen] Med 10/20/20 00:51 Active 1 mg IM Q15M PRN Heparin Sodium Med 10/20/20 06:00 Active 5,000 units SUBCUT Q8HR Insulin Lispro [HumaLOG] Med 10/20/20 08:00 Ordered See Protocol SUBCUT WITHMEALSANDBED Ondansetron [Zofran] Med 10/20/20 00:47 Active 4 mg IVPUSH Q4H PRN Sodium Chloride 0.9% [Saline Flush] Med 10/20/20 00:49 Active 10 ml FLUSH ASDIRECTED PRN allopurinoL [Zyloprim] Med 10/20/20 09:00 Active 300 mg PO DAILY atorvaSTATin Calcium [Lipitor] Med 10/20/20 09:00 Active 40 mg PO DAILY Saline Lock Insert [OM.PC] Routine Oth 10/20/20 00:47 Ordered Sequential Compression Device [OM.PC] Per Unit Routine Oth 10/20/20 00:48 Ordered Resuscitation Status Routine Resus Stat 10/20/20 00:47 Ordered Medication Orders Acetaminophen (Acetaminophen 325 Mg Tab) 650 mg PO Q4H PRN PRN Reason: Pain (Mild 1-3)/fever Allopurinol (Allopurinol 300 Mg Tab) 300 mg PO DAILY [facility] Aspirin (Aspirin 81 Mg Tab.Ec) 81 mg PO DAILY [facility] Clopidogrel Bisulfate (Clopidogrel 75 Mg Tab) 75 mg PO DAILY [facility] Dextrose/Water (50% Dextrose In Water 50 Ml Syringe) 50 ml IV Q15M PRN PRN Reason: Hypoglycemia Docusate Sodium (Docusate Sodium 100 Mg Cap) 100 mg PO BID PRN PRN Reason: Constipation Furosemide (Furosemide 40 Mg/4 Ml Vial) 40 mg IVPUSH BID [facility] Glucagon (Glucagon,Human Recombinant 1 Mg Vial) 1 mg IM Q15M PRN PRN Reason: Hypoglycemia Heparin Sodium (Porcine) (Heparin Sodium 5,000 Units/Ml Vial) 5,000 units SUBCUT Q8HR [facility] Insulin Human Lispro (Insulin Lispro 100 Units/Ml 3 Ml Vial) 0 unit SUBCUT WITHMEALSANDBED BENJAMÍN; Protocol Non-Formulary Medication (Atorvastatin Calcium [Lipitor]) 40 mg PO DAILY [facility] Ondansetron HCl (Ondansetron 4 Mg/2 Ml Sdv) 4 mg IVPUSH Q4H PRN PRN Reason: Nausea/Vomiting Sodium Chloride (Sodium Chloride 0.9% 10 Ml Syringe) 10 ml FLUSH ASDIRECTED PRN PRN Reason: Keep Vein Open Assessment/Plan Comment:: 89-year-old female with a past medical history as listed above who presents to the [facility] emergency department with her [id number] due to a chief complaint of shortness of breath. 1. Acutely decompensated congestive heart failure (unknown ejection fraction). Admit to the hospitalist service under observation status as she is not hypoxic. Patient has been given 40 mg IV push in the emergency department. Proceed with 40 mg IV twice daily. Monitor I's and O's as well as daily weight by standing scale only. Congestive heart failure education in the morning. Sodium restricted diet. Unfortunately echo capabilities are not possible for the next week. We will attempt to get records from [place] tomorrow. Compression stockings. 2. Type 2 diabetes mellitus. Hold oral hypoglycemics. Invoke hospital hyperglycemia protocol. 3. Coronary artery disease status post TX and multiple cardiac catheterizations (at least 7 stents). Continue home cardiac medications at regular dose once reconciled. Orders for aspirin and statin have already been placed. Antihypertensives including DOROTEO inhibitor and will be reconciled in the morning. 4. History of CVA. Continue aspirin and statin. 5. Elevated D-dimer above age-appropriate cutoff. Due to the long car ride from [place], CT examination of the chest without contrast to rule out large central burden is pending. Considering lack of tachycardia, and significant hypoxia I doubt that she has a clot burden. 6. Parkinson's disease. Cognition seems to be mostly intact. PT and OT consultation. CODE STATUS: Full code. DVT prophylaxis with heparin subcu.
--- NOTE | 2020-10-20 01:27 | CT ---
PROCEDURE INFORMATION: Exam: CT Chest Without Contrast; Diagnostic Exam date and time: 10/20/2020 1:05 AM Age: 89 years old Clinical indication: Shortness of breath; Additional info: Short of breath TECHNIQUE: Imaging protocol: Diagnostic computed tomography of the chest without contrast. Radiation optimization: All CT scans at this facility use at least one of these dose optimization techniques: automated exposure control; mA and/or kV adjustment per patient size (includes targeted exams where dose is matched to clinical indication); or iterative reconstruction. COMPARISON: CT Chest w Cont 02/01/2018 11:39 AM FINDINGS: Lungs: Stable scarring in the paramediastinal portion of the right lower lobe. Pleural spaces: Unremarkable. No pneumothorax. No pleural effusion. Heart: Unremarkable. No cardiomegaly. No pericardial effusion. Aorta: Moderate atherosclerotic disease of the aorta without aneurysm. Lymph nodes: Unremarkable. No enlarged lymph nodes. Gallbladder and bile ducts: There has been a cholecystectomy. Bones/joints: Unremarkable. No acute fracture. Soft tissues: Unremarkable. IMPRESSION: 1. 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 2. Stable scarring in the paramediastinal portion of the right lower lobe. 3. No consolidation.
[2020-10-20] MEDS ORDERED: Heparin Sodium 5,000 Units/ML Vial SUBCUT SCH (06:00)
[2020-10-20 06:45] LABS: ANION GAP 13.1 mEq/L (7-13)
[2020-10-20] MEDS ORDERED: Insulin Lispro 100 Units/ML 3 ML Vial SUBCUT SCH (08:00)
[2020-10-20] MEDS ORDERED: Non-Formulary Medication 1 Each (Atorvastatin Calcium [Lipitor] 40 MG Tablet) PO SCH (09:00)
[2020-10-20] MEDS ORDERED: Aspirin 81 MG Tab.EC PO SCH (09:00)
[2020-10-20] MEDS ORDERED: Allopurinol 300 MG Tab PO SCH (09:00)
[2020-10-20] MEDS ORDERED: Furosemide 40 MG/4 ML VIAL IVPUSH SCH (09:00)
[2020-10-20] MEDS ORDERED: Clopidogrel 75 MG Tab PO SCH (09:00)
[2020-10-20] MEDS ORDERED: atorvaSTATin 20 MG Tab PO SCH (09:06)
--- NOTE | 2020-10-20 09:50 | PCM.DCSUM1 ---
Discharge Summary - Hospital Course Free Text/Narrative:: 89-year-old female who presented to the [facility] emergency department with her [id number] due to a chief complaint of shortness of breath. 1. Acutely decompensated congestive heart failure (unknown ejection fraction). Admitted to the hospitalist service under observation status as she was not hypoxic. Patient was given 40 mg IV push in the emergency department and received an additional dose of 40 mg IV the morning that she was discharged. Home medication regimen changed to 40 mg p.o. twice daily and to continue her Aldactone which was held during her short stay in the hospital. Her chlorthalidone has been discontinued indefinitely. Monitored I's and O's as well as daily weight by standing scale only. Congestive heart failure education given while admitted. Sodium restricted diet. Unfortunately echocardiographic studies cannot be performed while she was in the hospital due to lack of personnel to perform the test. Outpatient study has been scheduled. Compression stockings. Patient instructed to see her primary care physician within the next week for further follow-up. 2. Type 2 diabetes mellitus. Held oral hypoglycemics. Invoked hospital hyperglycemia protocol. 3. Coronary artery disease status post NH and multiple cardiac catheterizations (at least 7 stents). Orders for aspirin and statin have already been placed. Benazepril discontinued. Continued on all other home antihypertensives once reconciled. 4. History of CVA. Continued aspirin and statin. 5. Elevated D-dimer above age-appropriate cutoff. Due to the long car ride from [place], CT examination of the chest without contrast to rule out large central burden was performed. Negative for PE overall. Considering lack of tachycardia, and significant hypoxia I doubt that she has a clot burden. 6. Parkinson's disease. Cognition seems to be mostly intact. Not on Sinemet. PT and OT consultation. CODE STATUS: Full code. DVT prophylaxis with heparin subcu. HPI Initial Comments: Patient is an 89-year-old female with a past medical history as listed below presents to the [facility] emergency department with her daughter in law due to a chief complaint shortness of breath. Patient states that she was in her usual state of health up until 2 days ago when she started noticing shortness of breath both with exertion and at rest. She was also noted increased girth in the lower extremities since this past Frid ay. Her [id number] concurs with that statement. She has not specifically weighed herself. Her daughter thinks that she has gained weight. She self- admittedly has not taken any of her medications in at least 48 hours. They are unable to provide a medication list at this time. They believe that diuretics are part of her regimen. Exacerbating factors include lying flat, however she does sleep in a chair most often. She denies any chest pain, chest pressure, pleurisy, nausea/vomiting, abdominal discomfort or difficulties with voiding. The patient has recently returned from a long road trip from [place] where she has been spending half of the year. She denies any calf pain and pleurisy as previously mentioned. In the emergency department, she appeared to be nontoxic. She was not hypoxic nor was she tachycardic. Labs were relatively unremarkable with the exception of known chronic kidney disease. In comparison to previous numbers at our facility in 2018 she would be considered an acute kidney injury, but her [id number] states that her kidneys have gotten worse and her renal function is about 25%. In the ER tonight her GFR is 21. Her chest x-ray was abnormal. Please see below for formal reading. Due to that reading the patient was given Rocephin for empiric coverage. Patient was also given Lasix 40 mg IV due to a component of acutely decompensated congestive heart failure. D-dimer was checked which was above age-appropriate cutoff. Patient has been sent to radiology at current time for CAT scan of the chest without IV contrast due to renal function to rule out large central PE burden. Patient was referred to the internal medicine service due to the uncertainty of how she would do at home based upon her memory and taking her medications. An observation admission was requested. This has been granted. CODE STATUS: Full code according to the patient. Past Medical History HEENT History: Reports: Impaired Vision Cardiovascular History: Reports: Heart Failure, High Cholesterol, Hypertension, NH. Denies: Blood Clots/VTE/DVT Other Cardiovascular History: PCI with at least 7 stents. Had a recent cardiac catheterization within the past month, with what sounds like requirement for angioplasty. 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: Musculoskeletal History: Reports: Osteoporosis Neurological History: Reports: CVA, Parkinson's Endocrine/Metabolic History: Reports: Diabetes, Type II - Infectious Disease History Infectious Disease History: Reports: Chicken Pox, Influenza, Measles, Mumps - Past Surgical History HEENT Surgical History: Reports: Tonsillectomy Cardiovascular Surgical History: Reports: Coronary Artery Stent GI Surgical History: Reports: Cholecystectomy Female Surgical History: Reports: Section Social & Family History - Family History Family Medical History: No Pertinent Family History - Tobacco Use Tobacco Use Status *Q: Never Tobacco User Second Hand Smoke Exposure: No - Caffeine Use Caffeine Use: Reports: Coffee - Alcohol Use Alcohol Use Comment: Minimal. - Recreational Drug Use Recreational Drug Use: No - Living Situation & Occupation Living situation: Reports: , with Spouse Occupation: Retired - Exam Quality Assessment: No: Supplemental Oxygen General: Alert, Oriented HEENT: Conjunctiva Clear, Mucosa Moist & [place], Nares Patent, Posterior Pharynx Clear Neck: Supple, Trachea Midline. No: Lymphadenopathy, JVD Lungs: Rales (Bibasilar rales.). No: Rhonchi, Stridor, Wheezing Cardiovascular: Regular Rate (EKG shows left bundle branch block. Normal rate.), Regular Rhythm GI/Abdominal Exam: Normal Bowel Sounds, Soft, Non-Tender, No Distention Extremities: Normal Inspection, Pedal Edema (3+ pitting edema up to the midshin bilaterally.) Skin: Warm Neurological: Cranial Nerves Intact Neuro Extensive - Mental Status: Alert, Oriented x3, Normal Mood/Affect - Discharge Data Discharge Date: 10/20/20 Discharge Disposition: Home, Self-Care 01 Condition: Good - Referral to Home Health Date of Face to Face Encounter: 10/20/20 Primary Care Physician: PCP None Skilled Need: halfway and home health aide requested for medication management and overall education regarding comorbidities. - Discharge Diagnosis/Problem(s) (1) Shortness of breath SNOMED Code(s): 477342043 ICD Code: R06.02 - SHORTNESS OF BREATH Status: Acute Current Visit: Yes (2) CHF (congestive heart failure) SNOMED Code(s): 45974282 ICD Code: I50.9 - HEART FAILURE, UNSPECIFIED Status: Acute Current Visit: Yes Qualifiers: Heart failure type: unspecified Heart failure chronicity: acute on chronic Qualified Code(s): I50.9 - Heart failure, unspecified - Patient Instructions Diet: Low Sodium, Fluid Restriction (2 L of free fluid per day) Fluid Restriction: 2000 mL Activity: As Tolerated Other/Special Instructions: Continue taking medications as prescribed. Activity and diet are as tolerated. Limit sodium intake to 2 g/day. Fluid restriction of 1.5 to 2 L/day. Follow-up with PCP within 1 to 2 weeks. Recommend cardiology referral and outpatient echocardiography for maintenance examination. If you experience any signs or symptoms that warranted this admission please do not hesitate to call your primary care provider or present to an urgent care/emergency room for any immediate evaluation. - Discharge Plan *PRESCRIPTION DRUG MONITORING PROGRAM REVIEWED*: Not Applicable *COPY OF PRESCRIPTION DRUG MONITORING REPORT IN PATIENT ZOHRA: Not Applicable Prescriptions/Med Rec: Furosemide [Lasix] 40 mg PO BID #60 Home Medications: Home Meds Clopidogrel [Plavix] 75 mg PO DAILY 02/01/18 [History] allopurinoL [Zyloprim] 300 mg PO DAILY 02/01/18 [History] atorvaSTATin Calcium [Lipitor] 40 mg PO BEDTIME 02/01/18 [History] metFORMIN HCl [Metformin HCl] 500 mg PO BIDMEALS 02/01/18 [History] Aspirin [Aspirin EC] 81 mg PO DAILY 10/19/20 [History] Spironolactone [Aldactone] 25 mg PO DAILY 10/19/20 [History] Furosemide [Lasix] 40 mg PO BID #60 10/20/20 [Rx] Isosorbide Mononitrate [Isosorbide Mononitrate ER] 30 mg PO DAILY 10/20/20 [Hist ory] Metoprolol Tartrate 25 mg PO BID 10/20/20 [History] Oxygen Therapy Mode: Room Air Referrals: PCP,None [Primary Care Provider] - - Discharge Summary/Plan Comment DC Time >30 min.: No - General Info Date of Service: 10/20/20 Admission Dx/Problem (Free Text: Admission Diagnosis/Problem Admission Diagnosis/Problem Mild acute decompensation of congestive heart failure (unknown ejection fraction) Shortness of breath without hypoxia Chronic kidney disease stage IV. - Review of Systems General: Reports: No Symptoms HEENT: Reports: No Symptoms Pulmonary: Reports: No Symptoms Cardiovascular: Reports: Edema. Denies: Chest Pain, Palpitations, Dyspnea on Exertion, Orthopnea Gastrointestinal: Reports: No Symptoms Musculoskeletal: Reports: No Symptoms Skin: Reports: No Symptoms Neurological: Reports: No Symptoms - Patient Data Vitals - Most Recent: Last Vital Signs Temp 98.9 F 10/20/20 08:00 Pulse 93 10/20/20 08:00 Resp 16 10/20/20 08:00 BP 150/87 H 10/20/20 08:00 Pulse Ox 96 10/20/20 08:00 Weight - Most Recent: 129 lb 6.4 oz I&O - Last 24 hours: Intake & Output 10/19/20 10/20/20 10/20/20 22:59 06:59 14:59 Intake Total 100 Output Total 1200 Balance -1100 Lab Results - Last 24 hrs: Laboratory Results - last 24 hr 10/19/20 10/19/20 10/19/20 Range/Units 22:50 22:50 22:50 WBC 7.0 (5.0-10.0) 10^3/uL RBC 3.82 L (4.2-5.4) 10^6/uL Hgb 11.7 L (12.0-16.0) g/dL Hct 36.0 L (37.0-47.0) % MCV 94.2 (80-100) fL MCH 30.6 (27.0-34.0) pg MCHC 32.5 L (33.0-35.0) g/dL Plt Count 179 (150-450) 10^3/uL Neut % (Auto) 69.3 (42.2-75.2) % Lymph % (Auto) 21.9 (20.5-50.1) % [place] % (Auto) 4.4 (2-8) % Eos % (Auto) 3.8 H (1.0-3.0) % Baso % (Auto) 0.6 (0.0-1.0) % D-Dimer, Quantitative 1060 H (0-400) ng/mL Sodium 138 (136-145) mmol/L Potassium 4.3 (3.5-5.1) mmol/L Chloride 102 (98-107) mmol/L Carbon Dioxide 22 (21-32) mmol/L Anion Gap 18.3 H (7-13) mEq/L BUN 44 H (7-18) mg/dL Creatinine 2.18 H (0.55-1.02) mg/dL Est Cr Clr Drug Dosing 14.11 mL/min Estimated GFR (MDRD) 21 BUN/Creatinine Ratio 20.2 (No establ ref range) Glucose 241 H (70-99) mg/dL POC Glucose (70-99) mg/dL Lactic Acid (0.4-2.0) mmol/L Calcium 8.8 (8.5-10.1) mg/dL Total Bilirubin 0.6 (0.2-1.0) mg/dL AST 28 (15-37) U/L ALT 71 H (14-59) U/L Alkaline Phosphatase 144 H (46-116) U/L Troponin I 0.048 (0.000-0.056) ng/mL B-Natriuretic Peptide 629 H (0-100) pg/ml Total Protein 7.2 (6.4-8.2) g/dL Albumin 3.4 (3.4-5.0) g/dL Globulin 3.8 Albumin/Globulin Ratio 0.9 Urine Color (YELLOW) Urine Appearance (CLEAR) Urine pH (5.0-9.0) Ur Specific [place] (1.005-1.030) Urine Protein (NEGATIVE) Urine Glucose (UA) (NEGATIVE) Urine Ketones (NEGATIVE) Urine Occult Blood (NEGATIVE) Urine Nitrite (NEGATIVE) Urine Bilirubin (NEGATIVE) Urine Urobilinogen (0.2-1.0) mg/dL Ur Leukocyte Esterase (NEGATIVE) Urine RBC /HPF Urine WBC (0-5/HPF) /HPF Ur Epithelial Cells (NOT SEEN) /HPF Amorphous Sediment (NOT SEEN) /HPF Urine Bacteria (0-FEW/HPF) /HPF Urine Mucus (NOT SEEN) /LPF SARS-CoV-2 RNA (HENOK) (NEGATIVE) 10/19/20 10/20/20 10/20/20 Range/Units 22:50 00:43 01:15 WBC (5.0-10.0) 10^3/uL RBC (4.2-5.4) 10^6/uL Hgb (12.0-16.0) g/dL Hct (37.0-47.0) % MCV (80-100) fL MCH (27.0-34.0) pg MCHC (33.0-35.0) g/dL Plt Count (150-450) 10^3/uL Neut % (Auto) (42.2-75.2) % Lymph % (Auto) (20.5-50.1) % [place] % (Auto) (2-8) % Eos % (Auto) (1.0-3.0) % Baso % (Auto) (0.0-1.0) % D-Dimer, Quantitative (0-400) ng/mL Sodium (136-145) mmol/L Potassium (3.5-5.1) mmol/L Chloride (98-107) mmol/L Carbon Dioxide (21-32) mmol/L Anion Gap (7-13) mEq/L BUN (7-18) mg/dL Creatinine (0.55-1.02) mg/dL Est Cr Clr Drug Dosing mL/min Estimated GFR (MDRD) BUN/Creatinine Ratio (No establ ref range) Glucose (70-99) mg/dL POC Glucose (70-99) mg/dL Lactic Acid 1.8 (0.4-2.0) mmol/L Calcium (8.5-10.1) mg/dL Total Bilirubin (0.2-1.0) mg/dL AST (15-37) U/L ALT (14-59) U/L Alkaline Phosphatase (46-116) U/L Troponin I (0.000-0.056) ng/mL B-Natriuretic Peptide (0-100) pg/ml Total Protein (6.4-8.2) g/dL Albumin (3.4-5.0) g/dL Globulin Albumin/Globulin Ratio Urine Color Yellow (YELLOW) Urine Appearance Slightly cloudy (CLEAR) Urine pH 5.0 (5.0-9.0) Ur Specific [place] 1.020 (1.005-1.030) Urine Protein 100 H (NEGATIVE) Urine Glucose (UA) 100 H (NEGATIVE) Urine Ketones Negative (NEGATIVE) Urine Occult Blood Trace-intact H (NEGATIVE) Urine Nitrite Negative (NEGATIVE) Urine Bilirubin Negative (NEGATIVE) Urine Urobilinogen 0.2 (0.2-1.0) mg/dL Ur Leukocyte Esterase Trace H (NEGATIVE) Urine RBC 5-10 H /HPF Urine WBC 5-10 H (0-5/HPF) /HPF Ur Epithelial Cells Few (NOT SEEN) /HPF Amorphous Sediment Few (NOT SEEN) /HPF Urine Bacteria Few (0-FEW/HPF) /HPF Urine Mucus Few H (NOT SEEN) /LPF SARS-CoV-2 RNA (HENOK) Negative (NEGATIVE) 10/20/20 10/20/20 10/20/20 Range/Units 06:10 06:10 07:55 WBC 7.3 (5.0-10.0) 10^3/uL RBC 3.69 L (4.2-5.4) 10^6/uL Hgb 11.3 L (12.0-16.0) g/dL Hct 34.7 L (37.0-47.0) % MCV 94.0 (80-100) fL MCH 30.6 (27.0-34.0) pg MCHC 32.6 L (33.0-35.0) g/dL Plt Count 182 (150-450) 10^3/uL Neut % (Auto) 58.2 (42.2-75.2) % Lymph % (Auto) 31.6 (20.5-50.1) % [place] % (Auto) 5.8 (2-8) % Eos % (Auto) 3.7 H (1.0-3.0) % Baso % (Auto) 0.7 (0.0-1.0) % D-Dimer, Quantitative (0-400) ng/mL Sodium 138 (136-145) mmol/L Potassium 4.1 (3.5-5.1) mmol/L Chloride 103 (98-107) mmol/L Carbon Dioxide 26 (21-32) mmol/L Anion Gap 13.1 H (7-13) mEq/L BUN 43 H (7-18) mg/dL Creatinine 1.91 H (0.55-1.02) mg/dL Est Cr Clr Drug Dosing 16.10 mL/min Estimated GFR (MDRD) 25 BUN/Creatinine Ratio (No establ ref range) Glucose 101 H (70-99) mg/dL POC Glucose 85 (70-99) mg/dL Lactic Acid (0.4-2.0) mmol/L Calcium 8.5 (8.5-10.1) mg/dL Total Bilirubin (0.2-1.0) mg/dL AST (15-37) U/L ALT (14-59) U/L Alkaline Phosphatase (46-116) U/L Troponin I (0.000-0.056) ng/mL B-Natriuretic Peptide (0-100) pg/ml Total Protein (6.4-8.2) g/dL Albumin (3.4-5.0) g/dL Globulin Albumin/Globulin Ratio Urine Color (YELLOW) Urine Appearance (CLEAR) Urine pH (5.0-9.0) Ur Specific [place] (1.005-1.030) Urine Protein (NEGATIVE) Urine Glucose (UA) (NEGATIVE) Urine Ketones (NEGATIVE) Urine Occult Blood (NEGATIVE) Urine Nitrite (NEGATIVE) Urine Bilirubin (NEGATIVE) Urine Urobilinogen (0.2-1.0) mg/dL Ur Leukocyte Esterase (NEGATIVE) Urine RBC /HPF Urine WBC (0-5/HPF) /HPF Ur Epithelial Cells (NOT SEEN) /HPF Amorphous Sediment (NOT SEEN) /HPF Urine Bacteria (0-FEW/HPF) /HPF Urine Mucus (NOT SEEN) /LPF SARS-CoV-2 RNA (HENOK) (NEGATIVE) Med Orders - Current: Current Medications Acetaminophen (Acetaminophen 325 Mg Tab) 650 mg PO Q4H PRN PRN Reason: Pain (Mild 1-3)/fever Last Admin: 10/20/20 09:11 Dose: 650 mg Documented by: Allopurinol (Allopurinol 300 Mg Tab) 300 mg PO DAILY [facility] Last Admin: 10/20/20 09:13 Dose: 300 mg Documented by: Aspirin (Aspirin 81 Mg Tab.Ec) 81 mg PO DAILY [facility] Last Admin: 10/20/20 09:13 Dose: 81 mg Documented by: Atorvastatin Calcium (Atorvastatin 20 Mg Tab) 40 mg PO DAILY [facility] Clopidogrel Bisulfate (Clopidogrel 75 Mg Tab) 75 mg PO DAILY [facility] Last Admin: 10/20/20 09:13 Dose: 75 mg Documented by: Dextrose/Water (50% Dextrose In Water 50 Ml Syringe) 50 ml IV Q15M PRN PRN Reason: Hypoglycemia Docusate Sodium (Docusate Sodium 100 Mg Cap) 100 mg PO BID PRN PRN Reason: Constipation Furosemide (Furosemide 40 Mg/4 Ml Vial) 40 mg IVPUSH BID [facility] Glucagon (Glucagon,Human Recombinant 1 Mg Vial) 1 mg IM Q15M PRN PRN Reason: Hypoglycemia Heparin Sodium (Porcine) (Heparin Sodium 5,000 Units/Ml Vial) 5,000 units SUBCUT Q8HR [facility] Last Admin: 10/20/20 06:33 Dose: Not Given Documented by: Insulin Human Lispro (Insulin Lispro 100 Units/Ml 3 Ml Vial) 0 unit SUBCUT WITHMEALSANDBED [facility]; Protocol Last Admin: 10/20/20 08:40 Dose: Not Given Documented by: Ondansetron HCl (Ondansetron 4 Mg/2 Ml Sdv) 4 mg IVPUSH Q4H PRN PRN Reason: Nausea/Vomiting Sodium Chloride (Sodium Chloride 0.9% 10 Ml Syringe) 10 ml FLUSH ASDIRECTED PRN PRN Reason: Keep Vein Open Discontinued Medications Furosemide (Furosemide 40 Mg/4 Ml Vial) 60 mg IVPUSH NOW ONE Stop: 10/20/20 00:18 Last Admin: 10/20/20 00:46 Dose: 60 mg Documented by: Ceftriaxone Sodium 1 gm/ (Sodium Chloride) 50 mls @ 100 mls/hr IV ONETIME ONE Stop: 10/20/20 00:30 Last Admin: 10/20/20 00:13 Dose: 100 mls/hr Documented by: Non-Formulary Medication (Atorvastatin Calcium [Lipitor]) 40 mg PO DAILY BENJAMÍN - Exam Quality Assessment: Denies: Supplemental Oxygen General: Reports: Alert HEENT: Reports: Pupils Equal Lungs: Reports: Clear to Auscultation, Rales (Mild dry rales in the lower lobes bilaterally.) Cardiovascular: Reports: Regular Rate, Regular Rhythm. Denies: No Murmurs GI/Abdominal Exam: Normal Bowel Sounds, Soft, Non-Tender, No Distention Extremities: Pedal Edema (3+ pitting edema) Skin: Reports: Warm Psy/Mental Status: Reports: Normal Mood #1 Interpretation EKG Date: 10/20/20 Time: 01:00 QRS: LBBB
[2020-10-20 12:00] VITALS: BP 132/76; PULSE 81
== END 2020-10-20 12:45 | disposition home or self-care (01) ==
LOC: DL.ED 22:24 → DL.MS 10-20 00:36
PROVIDERS: ADMIT Hospitalist; ATTEND Hospitalist
DX: R06.02 Shortness of breath (principal); I13.0 Hypertensive heart and chronic kidney disease with heart failure and stage 1 through stage 4 chronic kidney disease, or unspecified chronic kidney disease; E11.22 Type 2 diabetes mellitus with diabetic chronic kidney disease; N18.4 Chronic kidney disease, stage 4 (severe); I50.9 Heart failure, unspecified; J18.9 Pneumonia, unspecified organism; I25.10 Atherosclerotic heart disease of native coronary artery without angina pectoris; I25.2 Old myocardial infarction; R79.1 Abnormal coagulation profile; G20 Parkinson's disease; E78.00 Pure hypercholesterolemia, unspecified; M81.0 Age-related osteoporosis without current pathological fracture; Z79.82 Long term (current) use of aspirin; Z79.84 Long term (current) use of oral hypoglycemic drugs; Z79.899 Other long term (current) drug therapy; Z86.73 Personal history of transient ischemic attack (TIA), and cerebral infarction without residual deficits; Z20.822 Contact with and (suspected) exposure to COVID-19; Z95.5 Presence of coronary angioplasty implant and graft
CPT/HCPCS: 36415; 71045; 71250; 80048; 80053; 81001; 82947; 83605; 83880; 84484; 85025; 85379; 87040; 87086; 93005; 93010; 96365; 96375; 96376; 99284; 99285-25; A9270-GY; G0378; J0696; J1940; U0002

== ENCOUNTER 2020-10-29 06:23 | Inpatient (IN) | payer MEDICARE, BC ==
--- NOTE | 2020-10-29 06:47 | EDM.PDOC ---
<Marissa Weir - Last Filed: 10/29/20 06:47> ED HPI GENERAL MEDICAL PROBLEM - General Chief Complaint: Lower Extremity Injury/Pain Stated Complaint: AMBULANCE Time Seen by Provider: 10/29/20 06:30 Source of Information: Reports: Patient, EMS, RN History Limitations: Reports: No Limitations - History of Present Illness INITIAL COMMENTS - FREE TEXT/NARRATIVE: ED via [facility] with c/o pain to left thigh since last alessandro, unable to straighten leg, describes pain constant, rate 7-8/10. Has not tried anything for pain. Denies injury or fall. Feet normally swollen. No SOB. Hx parkinson's. Ambulates with cane or walker. Lives at home with elderly spouse. Recent admission for CHF. Admits does not take all medications as prescribed. Has not taken any medications today. - Related Data Allergies Allergy/AdvReac Type Severity Reaction Status Date / Time No Known Allergies Allergy Verified 10/19/20 22:38 Home Meds: Home Meds Clopidogrel [Plavix] 75 mg PO DAILY 02/01/18 [History] allopurinoL [Zyloprim] 300 mg PO DAILY 02/01/18 [History] atorvaSTATin Calcium [Lipitor] 40 mg PO BEDTIME 02/01/18 [History] metFORMIN HCl [Metformin HCl] 500 mg PO BIDMEALS 02/01/18 [History] Aspirin [Aspirin EC] 81 mg PO DAILY 10/19/20 [History] Spironolactone [Aldactone] 25 mg PO DAILY 10/19/20 [History] Furosemide [Lasix] 40 mg PO BID #60 10/20/20 [Rx] Isosorbide Mononitrate [Isosorbide Mononitrate ER] 30 mg PO DAILY 10/20/20 [History] Metoprolol Tartrate 25 mg PO BID 10/20/20 [History] Past Medical History HEENT History: Reports: Impaired Vision Cardiovascular History: Reports: Heart Failure, High Cholesterol, Hypertension, [place] Other Cardiovascular History: PCI with at least 7 stents. Had a recent cardiac catheterization within the past month, with what sounds like requirement for an gioplasty. 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: Musculoskeletal History: Reports: Osteoporosis Neurological History: Reports: CVA, Parkinson's Endocrine/Metabolic History: Reports: Diabetes, Type II - Infectious Disease History Infectious Disease History: Reports: Chicken Pox, Influenza, Measles, Mumps - Past Surgical History HEENT Surgical History: Reports: Tonsillectomy Cardiovascular Surgical History: Reports: Coronary Artery Stent GI Surgical History: Reports: Cholecystectomy Female Surgical History: Reports: Section Neurological Surgical History: Reports: None Social & Family History - Family History Family Medical History: No Pertinent Family History - Caffeine Use Caffeine Use: Reports: Coffee - Living Situation & Occupation Living situation: Reports: , with Spouse Occupation: Retired Review of Systems - Review of Systems Review Of Systems: Comprehensive ROS is negative, except as noted in HPI. ED EXAM, GENERAL - Physical Exam Exam: See Below Exam Limited By: No Limitations General Appearance: Alert, Mild Distress Eye Exam: Bilateral Eye: EOMI, PERRL Ears: Normal External Exam Nose: Normal Inspection Throat/Mouth: Normal Inspection Head: Atraumatic, Normocephalic Neck: Normal Inspection Respiratory/Chest: No Respiratory Distress, Decreased Breath Sounds (bases) Cardiovascular: Normal Peripheral Pulses, Regular Rate, Rhythm GI/Abdominal: Normal Bowel Sounds, Soft, Non-Tender Extremities: Pedal Edema (2-3+), Limited Range of Motion (left hip), Other (pain left mid femur greater with attempt at extension, favored position, flexed . ) Neurological: Alert, Oriented, Slow to Respond Psychiatric: Flat Affect Skin Exam: Warm, Dry, Intact, Normal Color Departure - Departure Disposition: Home, Self-Care 01 Clinical Impression: Elevated brain natriuretic peptide (BNP) level Osteoarthritis Qualifiers: Osteoarthritis location: hip Osteoarthritis type: unspecified Laterality: left Qualified Code(s): M16.12 - Unilateral primary osteoarthritis, left hip - Discharge Information Forms: ED Department Discharge Care Plan Goals: The patient was advised of the examination, hip x-ray results, femur x-ray results, chest x-ray results, EKG, left lower extremity ultrasound results and chest x-ray results during the visit. The patient was given an IV dose of Lasix while in the ED. The patient was advised to continue to take her medications as prescribed. The patient should follow-up with her primary care facility next week for continued evaluation and further management. If the patient has any additional symptoms or concerns, the patient should either return to the emergency department or visit her primary care facility. <Teddy Foote - Last Filed: 10/29/20 09:03> #1 Interpretation EKG Date: 10/29/20 Time: 08:00 Rhythm: Other (Sinus Tachycardia) Rate (Beats/Min): 112 [place]: Normal P-Wave: Present Comparison: No Change (L BBB) Course - Vital Signs Last Recorded V/S: Last Vital Signs Temp 36.6 C 10/29/20 06:38 Pulse 99 10/29/20 06:38 Resp 18 10/29/20 06:38 BP 166/91 H 10/29/20 06:38 Pulse Ox 95 10/29/20 06:38 - Orders/Labs/Meds Orders: Active Orders 24 hr Category Date Time Status EKG Documentation Completion [RC] STAT Care 10/29/20 07:54 Ordered CULTURE BLOOD [BC] Stat Lab 10/29/20 07:54 Ordered Labs: Laboratory Tests 10/29/20 10/29/20 10/29/20 Range/Units 06:53 06:53 08:15 WBC 7.9 (5.0-10.0) 10^3/uL RBC 4.07 L (4.2-5.4) 10^6/uL Hgb 12.5 (12.0-16.0) g/dL Hct 38.5 (37.0-47.0) % MCV 94.6 (80-100) fL MCH 30.7 (27.0-34.0) pg MCHC 32.5 L (33.0-35.0) g/dL Plt Count 193 (150-450) 10^3/uL Neut % (Auto) 71.7 (42.2-75.2) % Lymph % (Auto) 21.2 (20.5-50.1) % Conway % (Auto) 4.5 (2-8) % Eos % (Auto) 2.1 (1.0-3.0) % Baso % (Auto) 0.5 (0.0-1.0) % Sodium 138 (136-145) mmol/L Potassium 4.1 (3.5-5.1) mmol/L Chloride 103 (98-107) mmol/L Carbon Dioxide 23 (21-32) mmol/L Anion Gap 16.1 H (7-13) mEq/L BUN 46 H (7-18) mg/dL Creatinine 2.04 H (0.55-1.02) mg/dL Est Cr Clr Drug Dosing 14.38 mL/min Estimated GFR (MDRD) 23 BUN/Creatinine Ratio 22.5 (No establ ref range) Glucose 210 H (70-99) mg/dL Lactic Acid (0.4-2.0) mmol/L Calcium 8.8 (8.5-10.1) mg/dL Magnesium 1.9 (1.8-2.4) mg/dL Total Bilirubin 0.7 (0.2-1.0) mg/dL AST 27 (15-37) U/L ALT 52 (14-59) U/L Alkaline Phosphatase 142 H (46-116) U/L Troponin I 0.039 (0.000-0.056) ng/mL B-Natriuretic Peptide 563 H (0-100) pg/ml Total Protein 7.2 (6.4-8.2) g/dL Albumin 3.4 (3.4-5.0) g/dL Globulin 3.8 Albumin/Globulin Ratio 0.9 05/14/ Range/Units 08:15 WBC (5.0-10.0) 10^3/uL RBC (4.2-5.4) 10^6/uL Hgb (12.0-16.0) g/dL Hct (37.0-47.0) % MCV (80-100) fL MCH (27.0-34.0) pg MCHC (33.0-35.0) g/dL Plt Count (150-450) 10^3/uL Neut % (Auto) (42.2-75.2) % Lymph % (Auto) (20.5-50.1) % Conway % (Auto) (2-8) % Eos % (Auto) (1.0-3.0) % Baso % (Auto) (0.0-1.0) % Sodium (136-145) mmol/L Potassium (3.5-5.1) mmol/L Chloride (98-107) mmol/L Carbon Dioxide (21-32) mmol/L Anion Gap (7-13) mEq/L BUN (7-18) mg/dL Creatinine (0.55-1.02) mg/dL Est Cr Clr Drug Dosing mL/min Estimated GFR (MDRD) BUN/Creatinine Ratio (No establ ref range) Glucose (70-99) mg/dL Lactic Acid 1.5 (0.4-2.0) mmol/L Calcium (8.5-10.1) mg/dL Magnesium (1.8-2.4) mg/dL Total Bilirubin (0.2-1.0) mg/dL AST (15-37) U/L ALT (14-59) U/L Alkaline Phosphatase (46-116) U/L Troponin I (0.000-0.056) ng/mL B-Natriuretic Peptide (0-100) pg/ml Total Protein (6.4-8.2) g/dL Albumin (3.4-5.0) g/dL Globulin Albumin/Globulin Ratio Meds: Medications Discontinued Medications Generic Name Dose Route Start Last Admin Trade Name Freq PRN Reason Stop Dose Admin Furosemide 40 mg 10/29/20 08:53 Furosemide 40 Mg/4 Ml Vial IVPUSH 10/29/20 08:54 NOW ONE Morphine Sulfate 2 mg 10/29/20 06:51 10/29/20 07:06 Morphine 2 Mg/Ml Syringe IVPUSH 10/29/20 06:52 2 mg ONETIME ONE Administration - Re-Assessments/Exams Free Text/Narrative Re-Assessment/Exam: 10/29/20 07:58 The patient was advised of the x-ray results (negative for fractures). The patient then reported she was short of breath and also has chest pain. The patient reports her shortness of breath started 2 days ago and the chest pain has been intermittent over the past 2 days. The patient continued to report pain to her left thigh. The patient's left lower extremity was extended with the patient's assistance. The patient continued to report discomfort. Further work- up for the shortness of breath, chest pain and left thigh pain was ordered (Troponin, blood culture, lactic acid, chest x-ray and ultrasound of left leg). Departure - Departure Time of Disposition: 08:55 Condition: Fair - Discharge Information *PRESCRIPTION DRUG MONITORING PROGRAM REVIEWED*: Not Applicable *COPY OF PRESCRIPTION DRUG MONITORING REPORT IN PATIENT ZOHRA: Not Applicable Sepsis Event Note (ED) - Focused Exam Vital Signs: Vital Signs Temp Pulse Resp BP Pulse Ox 10/29/20 06:38 36.6 C 99 18 166/91 H 95 - My Orders Last 24 Hours: My Active Orders 10/29/20 07:54 EKG Documentation Completion [RC] STAT CULTURE BLOOD [BC] Stat - Assessment/Plan Last 24 Hours: My Active Orders 10/29/20 07:54 EKG Documentation Completion [RC] STAT CULTURE BLOOD [BC] Stat
[2020-10-29] MEDS ORDERED: Morphine 2 MG/ML SYRINGE IVPUSH ONE (06:51)
[2020-10-29 07:19] LABS: ANION GAP 16.1 mEq/L (7-13)
--- NOTE | 2020-10-29 07:32 | CR ---
PROCEDURE INFORMATION: Exam: XR Left Hip Exam date and time: 10/29/2020 7:10 AM Age: 89 years old Clinical indication: Hip pain; Left hip TECHNIQUE: Imaging protocol: XR Left hip. Views: 2 or 3 views hip with pelvis when performed. COMPARISON: No relevant prior studies available. FINDINGS: Bones/joints: There is evidence of degenerative disc disease at the lower lumbar spine. No significant narrowing of the hip joint space. No large marginal osteophytes or subchondral cystic changes are present. No displaced fracture or dislocation. Soft tissues: Unremarkable. IMPRESSION: No acute findings
--- NOTE | 2020-10-29 07:33 | CR ---
PROCEDURE INFORMATION: Exam: XR Left Femur Exam date and time: 10/29/2020 7:13 AM Age: 89 years old Clinical indication: Pain; Hip; Left TECHNIQUE: Imaging protocol: XR Left femur. Views: 2 views. COMPARISON: No relevant prior studies available. FINDINGS: Bones/joints: No significant narrowing of the hip joint space. No large marginal osteophytes or subchondral cystic changes are present. No displaced fracture or dislocation. Soft tissues: Unremarkable. IMPRESSION: No acute findings
--- NOTE | 2020-10-29 08:19 | CR ---
PROCEDURE INFORMATION: Exam: XR Chest Exam date and time: 10/29/2020 8:05 AM Age: 89 years old Clinical indication: Shortness of breath; Additional info: Chest pain with shortness of breath TECHNIQUE: Imaging protocol: XR of the chest. Views: 1 view. COMPARISON: CT Chest wo Cont, Chest wo Cont 10/20/2020 1:05 AM FINDINGS: Lungs: There is mild perihilar interstitial prominence consistent with volume overload or early congestive heart failure. Pleural spaces: Unremarkable. No pleural effusion. No pneumothorax. Heart/Mediastinum: The heart is enlarged. Vasculature: Tortuous thoracic aorta Bones/joints: Unremarkable. Organs: Surgical clips are noted in the right upper quadrant most likely due to prior cholecystectomy. IMPRESSION: There is mild perihilar interstitial prominence consistent with volume overload or early congestive heart failure.
--- NOTE | 2020-10-29 08:40 | US ---
PROCEDURE INFORMATION: Exam: US Duplex Left Lower Extremity Veins, Limited Exam date and time: 10/29/2020 8:15 AM Age: 89 years old Clinical indication: Pain; Leg, upper; Left; Additional info: Left upper leg pain TECHNIQUE: Imaging protocol: Real-time Duplex ultrasound of the Left Lower Extremity with 2-D burr scale, color Doppler flow and spectral waveform analysis with image documentation. Limited exam focused on the left lower extremity veins. COMPARISON: No relevant prior studies available. FINDINGS: Left deep veins: Unremarkable. The common femoral, femoral, proximal profunda femoral and popliteal veins are patent without thrombus. Normal Doppler waveforms. Normal compressibility and/or augmentation response. Left superficial veins: Unremarkable. Saphenofemoral junction is patent without thrombus. Soft tissues: Popliteal cyst measuring 3.8 x 3.6 x 1.4 cm IMPRESSION: 1. No evidence of deep vein thrombosis. 2. 3.8 cm popliteal cyst
[2020-10-29] MEDS ORDERED: Furosemide 40 MG/4 ML VIAL IVPUSH ONE (08:53)
--- NOTE | 2020-10-29 12:21 | CT ---
EXAMINATION: Pelvis wo Cont SEX: Female AGE: 89 years CLINICAL HISTORY: 89-year-old female complaining of left hip and thigh pain. Scan technique: Volume acquisition of data emergency unenhanced CT scan of the lower lumbar spine, bony pelvis and both hip joints obtained with the patient lying supine on the Siemens multislice scanner [facility]. All data archived in the PACS system for storage, reformatting axial/sagittal/coronal planes and study (bone/soft tissue windows). Interpretation: 1. Midline, infraumbilical ventral wall hernia without incarceration or bowel obstruction. Distended urinary bladder. 2. Anterolisthesis L4 vertebral body. Chronic severe lower lumbar (L5-S1) disc disease. Osteopenia. 3. Asymmetric chronic severe arthritic degenerative changes i.e. joint space narrowing, subchondral cystic lesions and dense bony eburnation or reactive sclerosis right hip. Symptomatic, contralateral, left hip relatively normal. 4. Symmetric spacing normal-appearing SI joints. 5. *No sign of pathologic skeletal lesion, pelvic or either hip fracture/dislocation. 6. No foreign bodies.
--- NOTE | 2020-10-29 12:30 | CT ---
EXAMINATION: Femur wo Cont Lt SEX: Female AGE: 89 years CLINICAL HISTORY: 89-year-old female with left hip and thigh pain. "Negative" pelvis and hips. INTERPRETATION: Volume acquisition of data both hips, femurs and knee joints obtained without IV contrast while the patient lying supine on the Siemens multi slice CT scanner [place], [place]. All data archived in the PACS system for storage, reformatting and study. Interpretation: 1. Generalized mild osteopenia consistent with age and gender. 2. Atheromatous calcifications tracing course of the femoral and popliteal arteries in the soft tissues both legs. 3. Asymmetric severe arthritic degenerative changes right hip joint with less pronounced arthritic degenerative changes (bony eburnation and spur at the femorotibial spine and patellofemoral surface of the patella bilaterally. 4. No sign of pathologic skeletal lesion, long bone femoral fracture, either hip or knee joint dislocation. 5. No foreign bodies. No soft tissue mass or hematoma.
[2020-10-29] MEDS ORDERED: Ondansetron 4 MG/2 ML SDV IVPUSH PRN (13:10)
[2020-10-29] MEDS ORDERED: Sodium Chloride 0.9% 10 ML Syringe FLUSH PRN (13:10)
[2020-10-29] MEDS ORDERED: Glucagon,Human Recombinant 1 MG Vial IM PRN (13:14)
[2020-10-29] MEDS ORDERED: 50% Dextrose in Water 50 ML Syringe IV PRN (13:14)
[2020-10-29] MEDS ORDERED: hydrALAZINE 20 MG/ML SDV IVPUSH PRN (13:15)
--- NOTE | 2020-10-29 13:23 | PCM.SN.2 ---
- Free Text/Narrative Note: START OF DOCTOR MARICRUZMIChely HISTORY AND PHYSICAL / CONSULTATION NOTE Chief Complaint: Left thigh pain History of Present Illness: The patient is a 89-year-old female who presents to complain left thigh pain. She states it actually started back in 1 year prior to hospitalization. She denies a history of injury however I was notified by the emergency department that she may have had a recent fall. She is uncertain as to whether she has been experiencing paresthesias of the area. She denies anesthesia. She admits to myasthenia secondary to the pain. She denies fever, rigors, nausea, vomiting, cough, wheeze. She denies diplopia and blurred vision. She denies dysphagia and dysphagia. Aside from the after mentioned areas the patient denies paresthesia/anesthesia/myasthenia of any part of her body. She presents for further evaluation Surgical History: Cholecystectomy, tonsillectomy, adenoidectomy, , cardiac stentnumerous, left ankle surgery Family History: Cancer, stroke, diabetes, coronary artery disease, hypertension Social History: Tobacco: Never Alcohol: Denies Caffeine: Coffee Drugs: Never Allergies: No known drug allergies Code Status: DNI but request cardiac resuscitation pessary Pertinent Laboratory Results / Pertinent Radiology Results / Pertinent Di agnostic Results / Pertinent Vital Signs: Blood pressure 166/91, pulse 99, respirations 18, temperature 90.9 degrees, 90% on room air, creatinine 2.04 Physical Examination: General: -Alert -No acute distress -No dyspnea -No tachypnea Head: -Atraumatic -Normocephalic Eyes: -Pupils equally round and reactive to light and accommodation -Extraocular muscles intact Neurological: -Cranial nerves II-XII intact Neck: -No jugular venous distention -No thyromegaly -No cervical lymphadenopathy Heart: -Regular rate -Regular rhythm -No murmurs -No gallops -No rubs Lungs: -No wheeze -No rhonchi -No rales Abdomen: -Normal bowel sounds in all four quadrants -No rebound -No guarding -No tenderness Extremities: -2/4 pulse in all four extremities -No clubbing -No cyanosis -No edema -No calf tenderness present bilaterally -Negative Homans sign bilaterally Musculoskeletal: -5/5 bilateral upper extremity strength -5/5 right lower extremity strength with plantar flexion dorsiflexion as well as right knee flexion and extension. Patient has limited range of motion of the left lower extremity and left knee extension flexion. She has 5 out of 5 left lower extremity plantar dorsiflexion -Sensorium of bilateral upper extremities are equal and intact -Sensorium of bilateral lower extremities are equal and intact Additional Details / Additional Findings / Exceptions / Miscellaneous: Assessment / Plan: Left thigh pain. Uncertain etiology at this time. Numerous imaging studies in the emergency department were negative. Query statin induced myopathy. Check CK level. Check TSH, free T4, B12, folate, ESR, CRP. As needed analgesia History of CVA. Aspirin a 1 mg p.o. daily plus Plavix and 5 mg daily Osteopenia Degenerative's disease Chronic kidney disease, unknown baseline creatinine. Will monitor creatinine level intermittently. Check strict I/O. Albumin 20 g IV every 8 hours. Bilateral renal ultrasound pending. Calculate Fena. History of pulmonary embolism Gout. Hold allopurinol 100 mg p.o. daily due to acute on chronic kidney disease Osteoarthritis CHF. Metoprolol 5 mg p.o. daily Coronary arteries, status post NH, status post that. Aspirin 81 mg p.o. daily plus Plavix and 5 mg p.o. daily plus Imdur 30 mg p.o. daily plus metoprolol 5 mg p.o. twice daily Diabetes. Will check fingerstick glucose before every meal and at bedtime and provide sulci scale Hyperlipidemia Hypertension. Imdur 30 mg p.o. daily Toprol 25 mg p.o. twice daily Parkinson's disease. Carbidopa/levodopa: 25/100 mg 1 tab p.o. 3 times daily DVT prophylaxis. Heparin 5000 units subcutaneously every 12 hours Disposition: Anticipate discharge within 48 hours. I requested case management, physical therapy, and Occupational Therapy evaluate the patient for home safety END OF DOCTOR EMAMIS HISTORY AND PHYSICAL / CONSULTATION NOTE
[2020-10-29] MEDS ORDERED: Carbidopa/Levodopa 25-100 MG Tab.ER PO SCH (14:00)
[2020-10-29] MEDS ORDERED: Albumin 25% 12.5 GM/100 ML BAG IV SCH (14:00)
[2020-10-29] MEDS: Acetaminophen 325 MG Tab PO PRN ×2 (14:04→18:05)
[2020-10-29] MEDS: Albumin 25% 25 GM in Premix Bag 1 BAG IV SCH (14:51)
[2020-10-29] MEDS: Insulin Lispro 100 Units/ML 3 ML Vial SUBCUT SCH (18:07)
[2020-10-29] MEDS ORDERED: Baclofen 10 MG Tab PO PRN (19:23)
[2020-10-29] MEDS ORDERED: Metoprolol Tartrate 25 MG Tab PO ONE (20:05)
[2020-10-29] MEDS ORDERED: Nitroglycerin 2% Oint 1 GM UD Packet TOP SCH (20:10)
[2020-10-29] MEDS ORDERED: Heparin Sodium/0.45% NaCl 25,000 UNITS/500 ML BAG IV SCH (20:15)
[2020-10-29] MEDS ORDERED: Metoprolol Tartrate 25 MG Tab ONE (20:22)
[2020-10-29] MEDS ORDERED: Nitroglycerin 2% Oint 1 GM UD Packet ONE (20:23)
[2020-10-29] MEDS ORDERED: Heparin Sodium 5,000 Units/ML Vial IVPUSH ONE (20:24)
[2020-10-29 20:26] VITALS: BP 140/93; PULSE 94
[2020-10-29] MEDS ORDERED: atorvaSTATin 20 MG Tab PO STA (20:30)
--- NOTE | 2020-10-29 20:30 | PCM.SN.2 ---
- Free Text/Narrative Note: START OF DOCTOR EMAMIS DISCHARGE SUMMARY Date of Admission: October 29, 2020 Date of transfer: 8:28 PM on October 29, 2020 Primary Diagnosis: Left thigh pain, uncertain etiology. Perhaps atypical presentation for NSTEMI given the patient's history of diabetes Secondary Diagnosis: NSTEMI History of CVA Osteopenia Degenerative disc disease Chronic kidney disease, unknown baseline creatinine History of pulmonary embolism Gout Osteoarthritis CHF, unknown ejection fraction Coronary artery disease, status post [facility], status post stentnumerous (I believe 7 or documented) Diabetes Hyperlipidemia Hypertension Parkinson's disease Consultations: None Condition upon transfer: Fair, stable Disposition: The patient will be transferred to the hospital at [place] under the care of Dr. Daily, hospitalist. Patient will likely require consultation by cardiology. Upon discharge, or during hospitalization, it is recommended that the patient be evaluated by nephrology for her chronic kidney disease for which her baseline creatinine is unknown Discharge Medications: Carbidopa/levodopa: 25/100 m tab p.o. 3 times daily Lipitor 40 mg p.o. nightly Nitropaste 1 inch every 6 hours Total of 25 mg p.o. twice daily Insulin lispro subcutaneously before every meal and at bedtime per sliding scale Plavix and 5 mg p.o. daily Aspirin 81 mg p.o. daily END OF DOCTOR EMAMIS DISCHARGE SUMMARY
[2020-10-29] MEDS ORDERED: Heparin Sodium/0.45% NaCl 500 ML ONE (20:31)
[2020-10-29] MEDS ORDERED: atorvaSTATin 20 MG Tab ONE (20:44)
[2020-10-29] MEDS ORDERED: Heparin Sodium 5,000 Units/ML Vial SUBCUT SCH (21:00)
[2020-10-29] MEDS ORDERED: Metoprolol Tartrate 25 MG Tab PO SCH (21:00)
[2020-10-30] MEDS: Albumin 25% 25 GM in Premix Bag 1 BAG IV SCH (01:37)
[2020-10-30] MEDS: Insulin Lispro 100 Units/ML 3 ML Vial SUBCUT SCH (01:37)
[2020-10-30] MEDS ORDERED: Clopidogrel 75 MG Tab PO SCH (09:00)
[2020-10-30] MEDS ORDERED: Isosorbide Mononitrate 30 MG Tab.ER PO SCH (09:00)
[2020-10-30] MEDS ORDERED: Aspirin 81 MG Tab.EC PO SCH (09:00)
--- NOTE | 2020-10-30 15:16 | US ---
PROCEDURE INFORMATION: Exam: US Retroperitoneal Limited, Kidneys Exam date and time: 10/29/2020 3:30 PM Age: 89 years old Clinical indication: Abnormal findings; Abnormal lab test; Abnormal kidney function lab tests; Additional info: Acute kidney failure TECHNIQUE: Imaging protocol: Real-time ultrasound of the retroperitoneum with image documentation. Examination was focused on the kidneys. COMPARISON: No relevant prior studies available. FINDINGS: Right kidney: Right kidney measures 3.7 x 8.2 x 4.3 cm. No mass. No hydronephrosis. Left kidney: Left kidney measures 0.4 x 10.4 x 4.5 cm. No mass. No hydronephrosis. Bladder: Ureteral jets were not visualized in the bladder. Urinary bladder appeared grossly normal IMPRESSION: Normal ultrasound of the kidneys bladder
[2020-10-30] MEDS ORDERED: Carbidopa/Levodopa 25-100 MG Tab PO SCH (17:47)
== END 2020-10-29 21:20 | DRG 281 ==
LOC: DL.ED 06:23 → DL.MS 13:07
PROVIDERS: ADMIT Internal Medicine; ATTEND Internal Medicine
DX: I21.4 Non-ST elevation (NSTEMI) myocardial infarction (principal); I13.0 Hypertensive heart and chronic kidney disease with heart failure and stage 1 through stage 4 chronic kidney disease, or unspecified chronic kidney disease; M79.652 Pain in left thigh; M16.12 Unilateral primary osteoarthritis, left hip; Z66 Do not resuscitate; H54.7 Unspecified visual loss; I11.0 Hypertensive heart disease with heart failure; I50.9 Heart failure, unspecified; E78.00 Pure hypercholesterolemia, unspecified; N28.9 Disorder of kidney and ureter, unspecified; M81.0 Age-related osteoporosis without current pathological fracture; G20 Parkinson's disease; M85.80 Other specified disorders of bone density and structure, unspecified site; E11.9 Type 2 diabetes mellitus without complications; N18.9 Chronic kidney disease, unspecified; M10.9 Gout, unspecified; I25.10 Atherosclerotic heart disease of native coronary artery without angina pectoris; E11.22 Type 2 diabetes mellitus with diabetic chronic kidney disease; E78.5 Hyperlipidemia, unspecified; G70.9 Myoneural disorder, unspecified; Z90.49 Acquired absence of other specified parts of digestive tract; Z86.73 Personal history of transient ischemic attack (TIA), and cerebral infarction without residual deficits; Z90.89 Acquired absence of other organs; Z86.711 Personal history of pulmonary embolism; Z95.5 Presence of coronary angioplasty implant and graft; I25.2 Old myocardial infarction; Z79.02 Long term (current) use of antithrombotics/antiplatelets; Z79.899 Other long term (current) drug therapy; Z20.822 Contact with and (suspected) exposure to COVID-19; Z79.01 Long term (current) use of anticoagulants; Z79.82 Long term (current) use of aspirin; Z79.84 Long term (current) use of oral hypoglycemic drugs
CPT/HCPCS: 36415; 71045; 72192; 73700-LT; 76775; 80053; 82550; 82570; 82607; 82746; 82947; 83605; 83735; 83880; 84300; 84439; 84443; 84484; 85025; 85651; 86140; 87040; 93005; 93010; 93971; 99284; A9270-GY; J1644; J1940; J2270; P9047; U0002

== ENCOUNTER 2020-11-30 21:34 | Emergency (ER) | payer MEDICARE, BC ==
[2020-11-30 21:50] VITALS: BP 171/81; PULSE 77
--- NOTE | 2020-11-30 22:06 | EDM.PDOC ---
ED HPI GENERAL MEDICAL PROBLEM - General Chief Complaint: Chest Pain Stated Complaint: HEART PROBLEMS Time Seen by Provider: 11/30/20 21:50 Source of Information: Reports: Patient History Limitations: Reports: No Limitations - History of Present Illness INITIAL COMMENTS - FREE TEXT/NARRATIVE: ED with c/o chest pain since getting out of bed this am, has tried nothing for pain. no nasea vomiting or cough. Has cardiac hx, Recent hospitalization [facility] told nothing additional for heart, was placed in NH for one month then signed herself out couple of days ago, currently living at home with spouse. Left NH with medication list but no medications. Daughter-in law, just found medication list tonight. States she does not always take her medications . Fentanyl patch on left shoulder from 11/25 Left Chest Pain Score (Numeric/FACES): 8 - Related Data Allergies Allergy/AdvReac Type Severity Reaction Status Date / Time No Known Allergies Allergy Verified 10/19/20 22:38 Home Meds: Home Meds atorvaSTATin Calcium [Lipitor] 40 mg PO BEDTIME 02/01/18 [History] Metoprolol Tartrate 25 mg PO BID 10/20/20 [History] Aspirin [Halfprin] 81 mg PO DAILY tab.ec 10/29/20 [Rx] Carbidopa/Levodopa [Carbidopa-Levodopa 25-100] 1 tab PO TID 10/29/20 [History] Clopidogrel [Plavix] 75 mg PO DAILY tablet 10/29/20 [Rx] Insulin Lispro [HumaLOG] 0 unit SUBCUT WITHMEALSANDBED vial 10/29/20 [Rx] Nitroglycerin [Nitro-Bid 2%] 0 gm TOP Q6H packet 10/29/20 [Rx] Past Medical History HEENT History: Reports: Impaired Vision Cardiovascular History: Reports: Heart Failure, High Cholesterol, Hypertension, [place] Other Cardiovascular History: PCI with at least 7 stents. Had a recent cardiac catheterization within the past month, with what sounds like requirement for angioplasty. 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: Musculoskeletal History: Reports: Osteoporosis Neurological History: Reports: CVA, Parkinson's Endocrine/Metabolic History: Reports: Diabetes, Type II - Infectious Disease History Infectious Disease History: Reports: Chicken Pox, Influenza, Measles, Mumps - Past Surgical History HEENT Surgical History: Reports: Tonsillectomy Cardiovascular Surgical History: Reports: Coronary Artery Stent GI Surgical History: Reports: Cholecystectomy Female Surgical History: Reports: Section Neurological Surgical History: Reports: None Social & Family History - Family History Family Medical History: No Pertinent Family History - Caffeine Use Caffeine Use: Reports: Coffee - Living Situation & Occupation Living situation: Reports: , with Spouse Occupation: Retired ED ROS GENERAL - Review of Systems Review Of Systems: Comprehensive ROS is negative, except as noted in HPI. Constitutional: Reports: Malaise HEENT: Reports: No Symptoms Respiratory: Denies: Shortness of Breath Cardiovascular: Reports: Chest Pain Musculoskeletal: Reports: Other (general) ED EXAM, GENERAL - Physical Exam Exam: See Below Exam Limited By: No Limitations General Appearance: Alert, No Apparent Distress, Thin Eye Exam: Bilateral Eye: EOMI Ears: Normal External Exam Nose: Normal Inspection Throat/Mouth: Normal Inspection Head: Atraumatic, Normocephalic Neck: Normal Inspection Respiratory/Chest: No Respiratory Distress, Lungs Clear, Crackles (fine left base) Cardiovascular: Regular Rate, Rhythm, Other (occasional PVC on monitor) GI/Abdominal: Normal Bowel Sounds, Soft Neurological: Alert Psychiatric: Flat Affect Skin Exam: Warm, Dry #1 Interpretation EKG Date: 11/30/20 Time: 21:56 Rhythm: Other (multifocal pvc present) Rate (Beats/Min): 73 [place]: Normal P-Wave: Present QRS: LBBB QT: Prolonged Course - Vital Signs Last Recorded V/S: Last Vital Signs Temp 95.9 F L 11/30/20 21:41 Pulse 77 11/30/20 21:41 Resp 18 11/30/20 21:41 BP 171/81 H 11/30/20 21:41 Pulse Ox 100 11/30/20 21:41 - Orders/Labs/Meds Labs: Laboratory Tests 11/30/20 11/30/20 11/30/20 Range/Units 22:04 22:04 22:04 WBC 6.9 (5.0-10.0) 10^3/uL RBC 4.12 L (4.2-5.4) 10^6/uL Hgb 12.9 (12.0-16.0) g/dL Hct 39.5 (37.0-47.0) % MCV 95.9 (80-100) fL MCH 31.3 (27.0-34.0) pg MCHC 32.7 L (33.0-35.0) g/dL Plt Count 138 L (150-450) 10^3/uL Neut % (Auto) 65.5 (42.2-75.2) % Lymph % (Auto) 26.6 (20.5-50.1) % [place] % (Auto) 6.6 (2-8) % Eos % (Auto) 1.0 (1.0-3.0) % Baso % (Auto) 0.3 (0.0-1.0) % Sodium 141 (136-145) mmol/L Potassium 4.3 (3.5-5.1) mmol/L Chloride 100 (98-107) mmol/L Carbon Dioxide 30 (21-32) mmol/L Anion Gap 15.3 H (7-13) mEq/L BUN 63 H (7-18) mg/dL Creatinine 2.56 H (0.55-1.02) mg/dL Est Cr Clr Drug Dosing 11.46 mL/min Estimated GFR (MDRD) 18 BUN/Creatinine Ratio 24.6 (No establ ref range) Glucose 179 H (70-99) mg/dL Calcium 9.3 (8.5-10.1) mg/dL Total Bilirubin 0.7 (0.2-1.0) mg/dL AST 37 (15-37) U/L ALT 73 H (14-59) U/L Alkaline Phosphatase 145 H (46-116) U/L Troponin I High Sens 48 (<=51) pg/mL B-Natriuretic Peptide 303 H (0-100) pg/ml Total Protein 7.7 (6.4-8.2) g/dL Albumin 3.7 (3.4-5.0) g/dL Globulin 4.0 g/dL Albumin/Globulin Ratio 0.93 Meds: Medications Discontinued Medications Generic Name Dose Route Start Last Admin Trade Name Freq PRN Reason Stop Dose Admin Acetaminophen 500 mg 11/30/20 23:30 11/30/20 23:42 Acetaminophen 500 Mg Tab PO 11/30/20 23:31 500 mg ONETIME ONE Administration Departure - Departure Time of Disposition: 23:31 Disposition: Home, Self-Care 01 Condition: Fair Clinical Impression: Chest pain, non-cardiac Instructions: Nonspecific Chest Pain, Adult Referrals: PCP,None [Primary Care Provider] - Forms: ED Department Discharge Additional Instructions: clinic follow up tomorrow to straighten out medications including fentanyl pain patch urgent follow up if symptoms worsen, difficulty breathing, weakness Sepsis Event Note (ED) - Evaluation Sepsis Screening Result: No Definite Risk
[2020-11-30 23:01] LABS: ANION GAP 15.3 mEq/L (7-13)
[2020-11-30] MEDS ORDERED: Acetaminophen 500 MG Tab PO ONE (23:30)
--- NOTE | 2020-11-30 23:57 | CR ---
PROCEDURE INFORMATION: Exam: XR Chest Exam date and time: 11/30/2020 10:56 PM Age: 89 years old Clinical indication: Pain; Left-sided; Additional info: Chest pain TECHNIQUE: Imaging protocol: XR of the chest. Views: 1 view. COMPARISON: CR Chest 1V Frontal 10/29/2020 8:05 AM FINDINGS: Lungs: Unremarkable. No consolidation. Pleural spaces: Unremarkable. No pleural effusion. No pneumothorax. Heart/Mediastinum: Unremarkable. No cardiomegaly. Vasculature: The thoracic aorta is ectatic and tortuous. Bones/joints: Unremarkable. IMPRESSION: No acute abnormality.
== END 2020-11-30 23:58 | disposition home or self-care (01) ==
LOC: DL.ED 21:34
DX: R07.9 Chest pain, unspecified (principal); I11.0 Hypertensive heart disease with heart failure; I50.9 Heart failure, unspecified; E78.00 Pure hypercholesterolemia, unspecified; I25.2 Old myocardial infarction; E11.9 Type 2 diabetes mellitus without complications; Z95.5 Presence of coronary angioplasty implant and graft; Z79.82 Long term (current) use of aspirin; Z79.02 Long term (current) use of antithrombotics/antiplatelets; Z79.899 Other long term (current) drug therapy
CPT/HCPCS: 36415; 71045; 80053; 83880; 84484; 85025; 93005; 93010; 99284; 99285; A9270

== ENCOUNTER 2020-12-19 20:08 | Emergency (ER) | payer MEDICARE, BC ==
[2020-12-19] MEDS ORDERED: Aspirin 81 MG Tab.Chew ONE (20:52)
[2020-12-19] MEDS ORDERED: Nitroglycerin 0.4 MG Tab.SL ONE (20:53)
[2020-12-19] MEDS ORDERED: Nitroglycerin 0.4 MG Tab.SL SL ONE ×2 (20:55→21:07)
[2020-12-19] MEDS ORDERED: Aspirin 81 MG Tab.Chew PO ONE (20:55)
--- NOTE | 2020-12-19 21:07 | CR ---
PROCEDURE INFORMATION: Exam: XR Chest Exam date and time: 12/19/2020 8:42 PM Age: 89 years old Clinical indication: Other: Chest pain TECHNIQUE: Imaging protocol: XR of the chest. Views: 1 view. COMPARISON: CR Chest 1V Frontal 11/30/2020 10:56 PM FINDINGS: Lungs: Bilateral coarse pulmonary parenchymal infiltrates may indicate the presence of a predominantly bilateral interstitial pneumonitis and/or edema. Pleural spaces: Unremarkable. No pleural effusion. No pneumothorax. Heart/Mediastinum: Unremarkable. No cardiomegaly. Bones/joints: Dextroscoliosis. IMPRESSION: Bilateral coarse pulmonary parenchymal infiltrates may indicate the presence of a predominantly bilateral interstitial pneumonitis and/or edema.
[2020-12-19 21:09] LABS: ANION GAP 21.5 mEq/L (7-13); CHLORIDE,CL 102 mmol/L (98-107); SODIUM,NA 137 mmol/L (136-145)
[2020-12-19 21:20] VITALS: BP 138/89; PULSE 112
[2020-12-19 21:29] LABS: CORONAVIRUS COVID-19 NAA NEGATIVE (NEGATIVE)
[2020-12-19] MEDS ORDERED: Furosemide 40 MG/4 ML VIAL IVPUSH ONE (21:41)
--- NOTE | 2020-12-19 21:55 | EDM.PDOC ---
ED HPI GENERAL MEDICAL PROBLEM - General Chief Complaint: General Stated Complaint: FEELS TERRIBLE, QUIET TALKING Time Seen by Provider: 12/19/20 20:20 Source of Information: Reports: Patient, Family, RN, RN Notes Reviewed History Limitations: Reports: No Limitations - History of Present Illness INITIAL COMMENTS - FREE TEXT/NARRATIVE: Patient is an 89-year-old female who presents to ER with complaint of chest pain and shortness of breath which began approximately 30 minutes prior to arrival. [place] and she began feeling not well overall, having chest pain/chest heaviness, shortness of breath. States she feels weak all over. Patient does have a significant cardiac history having 7 stents placed in the past. Also history of congestive heart failure, and diabetes. Patient denies radiation of the pain into the arms, back, jaw or neck. Onset: Today, Sudden Chest Pain Score (Numeric/FACES): 4 - Related Data Allergies Allergy/AdvReac Type Severity Reaction Status Date / Time No Known Allergies Allergy Verified 12/19/20 20:22 Home Meds: Home Meds atorvaSTATin Calcium [Lipitor] 40 mg PO BEDTIME 02/01/18 [History] Metoprolol Tartrate 25 mg PO BID 10/20/20 [History] Aspirin [Halfprin] 81 mg PO DAILY tab.ec 10/29/20 [Rx] Carbidopa/Levodopa [Carbidopa-Levodopa 25-100] 1 tab PO TID 10/29/20 [History] Clopidogrel [Plavix] 75 mg PO DAILY tablet 10/29/20 [Rx] Insulin Lispro [HumaLOG] 0 unit SUBCUT WITHMEALSANDBED vial 10/29/20 [Rx] Nitroglycerin [Nitro-Bid 2%] 0 gm TOP Q6H packet 10/29/20 [Rx] Past Medical History HEENT History: Reports: Impaired Vision Cardiovascular History: Reports: Heart Failure, High Cholesterol, Hypertension, [place], Stents Other Cardiovascular History: PCI with at least 7 stents. Had a recent cardiac catheterization within the past month, with what sounds like requirement for angioplasty. Gastrointestinal History: Reports: Other (See Below) Other Gastrointestinal History: occasional constipation, takes supp prn Genitourinary History: Reports: Renal Disease SURGERY AID History: Reports: Musculoskeletal History: Reports: Osteoporosis Neurological History: Reports: CVA, Parkinson's Endocrine/Metabolic History: Reports: Diabetes, Type II - Infectious Disease History Infectious Disease History: Reports: Chicken Pox, Influenza, Measles, Mumps - Past Surgical History HEENT Surgical History: Reports: Tonsillectomy Cardiovascular Surgical History: Reports: Coronary Artery Stent GI Surgical History: Reports: Cholecystectomy Female Surgical History: Reports: Section Neurological Surgical History: Reports: None Social & Family History - Family History Family Medical History: No Pertinent Family History - Tobacco Use Tobacco Use Status *Q: Never Tobacco User Second Hand Smoke Exposure: No - Caffeine Use Caffeine Use: Reports: Coffee - Recreational Drug Use Recreational Drug Use: No - Living Situation & Occupation Living situation: Reports: , with Spouse Occupation: Retired ED ROS GENERAL - Review of Systems Review Of Systems: Comprehensive ROS is negative, except as noted in HPI. ED EXAM, GENERAL - Physical Exam Exam: See Below Exam Limited By: No Limitations General Appearance: Alert, WD/WN, Moderate Distress Eye Exam: Bilateral Eye: EOMI, Normal Inspection Ears: Normal External Exam, Hearing Grossly Normal Nose: Normal Inspection Throat/Mouth: Normal Inspection, Normal Voice, No Airway Compromise Head: Atraumatic, Normocephalic Neck: Normal Inspection, Supple, Non-Tender, Full Range of Motion Respiratory/Chest: No Respiratory Distress, No Accessory Muscle Use, Decreased Breath Sounds, Crackles (bases bilaterally) Cardiovascular: Normal Peripheral Pulses, No Gallop, No JVD, No Murmur, No Rub, Tachycardia, Other (pedal edema +2) Peripheral Pulses: 1+: Radial (L), Radial (R) GI/Abdominal: Normal Bowel Sounds, Soft, Non-Tender (Female) Exam: Deferred Rectal (Female) Exam: Deferred Back Exam: Normal Inspection, Full Range of Motion, NT Extremities: Normal Inspection, Normal Range of Motion, Non-Tender, No Pedal Edema, Normal Capillary Refill, Pedal Edema (+2 ) Neurological: Alert, Oriented, CN II-XII Intact, Normal Cognition Psychiatric: Normal Affect, Normal Mood Skin Exam: Intact, No Rash, Cool, Diaphoretic, Pallor Lymphatic: No Adenopathy #1 Interpretation EKG Date: 12/19/20 Time: 20:22 Rhythm: Other (sinus tachycardia) Rate (Beats/Min): 126 QRS: LBBB Comparison: Change From Previous EKG #2 Interpretation EKG Date: 12/19/20 Time: 22:32 Rhythm: Other (sinus rhythm with PVC, LBBB) Rate (Beats/Min): 88 (Post Cardizem) P-Wave: Present QRS: LBBB Comparison: Change From Previous EKG Course - Vital Signs Last Recorded V/S: Last Vital Signs Temp 97 F 12/19/20 21:20 Pulse 112 H 12/19/20 21:20 Resp 21 H 12/19/20 21:20 BP 138/89 12/19/20 21:20 Pulse Ox 97 12/19/20 21:20 - Orders/Labs/Meds Orders: Active Orders 24 hr Category Date Time Status CULTURE BLOOD [BC] Stat Lab 12/19/20 20:30 Results CULTURE BLOOD [BC] Stat Lab 12/19/20 21:07 Received REFLEX LACTIC ACID YES OR NO [CHEM] Routine Lab 12/19/20 21:38 Received Blood Culture x2 Reflex Set [OM.PC] Stat Oth 12/19/20 20:24 Ordered Labs: Laboratory Tests 12/19/20 12/19/20 12/19/20 Range/Units 20:30 20:30 20:43 WBC 8.9 (5.0-10.0) 10^3/uL RBC 4.51 (4.2-5.4) 10^6/uL Hgb 14.1 (12.0-16.0) g/dL Hct 43.1 (37.0-47.0) % MCV 95.6 (80-100) fL MCH 31.3 (27.0-34.0) pg MCHC 32.7 L (33.0-35.0) g/dL Plt Count 193 (150-450) 10^3/uL Neut % (Auto) 52.2 (42.2-75.2) % Lymph % (Auto) 40.9 (20.5-50.1) % Ada % (Auto) 4.6 (2-8) % Eos % (Auto) 1.8 (1.0-3.0) % Baso % (Auto) 0.5 (0.0-1.0) % PT (9.0-12.0) SEC INR (0.9-1.2) Sodium 137 (136-145) mmol/L Potassium 4.5 (3.5-5.1) mmol/L Chloride 102 (98-107) mmol/L Carbon Dioxide 18 L D (21-32) mmol/L Anion Gap 21.5 H (7-13) mEq/L BUN 32 H D (7-18) mg/dL Creatinine 2.05 H (0.55-1.02) mg/dL Est Cr Clr Drug Dosing 14.31 mL/min Estimated GFR (MDRD) 23 BUN/Creatinine Ratio 15.6 (No establ ref range) Glucose 349 H (70-99) mg/dL Lactic Acid (0.4-2.0) mmol/L Calcium 9.0 (8.5-10.1) mg/dL Magnesium 2.1 (1.8-2.4) mg/dL Total Bilirubin 0.6 (0.2-1.0) mg/dL AST 33 (15-37) U/L ALT 45 (14-59) U/L Alkaline Phosphatase 145 H (46-116) U/L Creatine Kinase 51 (16-191) U/L Troponin I High Sens 196 H* (<=51) pg/mL C-Reactive Protein < 0.2 (0.0-0.9) mg/dL B-Natriuretic Peptide 1140 H (0-100) pg/ml Total Protein 7.4 (6.4-8.2) g/dL Albumin 3.5 (3.4-5.0) g/dL Globulin 3.9 Albumin/Globulin Ratio 0.9 Influenza Type A RNA Negative (NEGATIVE) Influenza Type B RNA Negative (NEGATIVE) SARS-CoV-2 RNA ([facility]ENOK) Negative (NEGATIVE) 12/19/20 12/19/20 Range/Units 21:07 21:07 WBC (5.0-10.0) 10^3/uL RBC (4.2-5.4) 10^6/uL Hgb (12.0-16.0) g/dL Hct (37.0-47.0) % MCV (80-100) fL MCH (27.0-34.0) pg MCHC (33.0-35.0) g/dL Plt Count (150-450) 10^3/uL Neut % (Auto) (42.2-75.2) % Lymph % (Auto) (20.5-50.1) % Ada % (Auto) (2-8) % Eos % (Auto) (1.0-3.0) % Baso % (Auto) (0.0-1.0) % PT 10.6 (9.0-12.0) SEC INR 1.1 (0.9-1.2) Sodium (136-145) mmol/L Potassium (3.5-5.1) mmol/L Chloride (98-107) mmol/L Carbon Dioxide (21-32) mmol/L Anion Gap (7-13) mEq/L BUN (7-18) mg/dL Creatinine (0.55-1.02) mg/dL Est Cr Clr Drug Dosing mL/min Estimated GFR (MDRD) BUN/Creatinine Ratio (No establ ref range) Glucose (70-99) mg/dL Lactic Acid 3.5 H* (0.4-2.0) mmol/L Calcium (8.5-10.1) mg/dL Magnesium (1.8-2.4) mg/dL Total Bilirubin (0.2-1.0) mg/dL AST (15-37) U/L ALT (14-59) U/L Alkaline Phosphatase (46-116) U/L Creatine Kinase (16-191) U/L Troponin I High Sens (<=51) pg/mL C-Reactive Protein (0.0-0.9) mg/dL B-Natriuretic Peptide (0-100) pg/ml Total Protein (6.4-8.2) g/dL Albumin (3.4-5.0) g/dL Globulin Albumin/Globulin Ratio Influenza Type A RNA (NEGATIVE) Influenza Type B RNA (NEGATIVE) SARS-CoV-2 RNA (HENOK) (NEGATIVE) Meds: Medications Discontinued Medications Generic Name Dose Route Start Last Admin Trade Name Lizzy PRN Reason Stop Dose Admin Aspirin Confirm 12/19/20 20:52 12/19/20 21:00 Aspirin 81 Mg Tab.Chew Administered 12/19/20 20:53 Not Given Dose 324 mg .ROUTE .STK-MED ONE Aspirin 324 mg 12/19/20 20:55 12/19/20 20:57 Aspirin 81 Mg Tab.Chew PO 12/19/20 20:56 324 mg ONETIME ONE Administration Diltiazem HCl 10 mg 12/19/20 22:07 12/19/20 22:14 Diltiazem 25 Mg/5 Ml Sdv IVPUSH 12/19/20 22:08 10 mg ONETIME ONE Administration Furosemide 40 mg 12/19/20 21:41 12/19/20 21:47 Furosemide 40 Mg/4 Ml Vial IVPUSH 12/19/20 21:42 40 mg ONETIME ONE Administration Piperacillin Sod/Tazobactam 100 mls @ 200 mls/hr 12/19/20 22:12 12/19/20 22:16 Sod 3.375 gm/ Sodium Chloride IV 12/19/20 22:41 200 mls/hr ONETIME ONE Administration Nitroglycerin Confirm 12/19/20 20:53 12/19/20 20:59 Nitroglycerin 0.4 Mg Tab.Sl Administered 12/19/20 20:54 Not Given Dose 0.4 mg .ROUTE .STK-MED ONE Nitroglycerin 0.4 mg 12/19/20 20:55 12/19/20 21:01 Nitroglycerin 0.4 Mg Tab.Sl SL 12/19/20 20:56 0.4 mg Q5M ONE Administration Nitroglycerin 0.4 mg 12/19/20 21:07 12/19/20 21:09 Nitroglycerin 0.4 Mg Tab.Sl SL 12/19/20 21:08 0.4 mg Q5M ONE Administration - Radiology Interpretation Free Text/Narrative:: chest xray: PROCEDURE INFORMATION: Exam: XR Chest Exam date and time: 12/19/2020 8:42 PM Age: 89 years old Clinical indication: Other: Chest pain TECHNIQUE: Imaging protocol: XR of the chest. Views: 1 view. COMPARISON: CR Chest 1V Frontal 11/30/2020 10:56 PM FINDINGS: Lungs: Bilateral coarse pulmonary parenchymal infiltrates may indicate the presence of a predominantly bilateral interstitial pneumonitis and/or edema. Pleural spaces: Unremarkable. No pleural effusion. No pneumothorax. Heart/Mediastinum: Unremarkable. No cardiomegaly. Bones/joints: Dextroscoliosis. IMPRESSION: Bilateral coarse pulmonary parenchymal infiltrates may indicate the presence of a predominantly bilateral interstitial pneumonitis and/or edema. See rad report - Re-Assessments/Exams Free Text/Narrative Re-Assessment/Exam: 12/19/20 21:54 Patient case discussed with Dr. Daily, hospitalist at [facility] who agreed to take the patient for transfer. Patient will be transferred via fixed wing air ambulance due to no transferring ambulances for the next 6 hours. Also discussed with patient her CODE STATUS. Patient states she would like CPR but does not want intubation. Departure - Departure Time of Disposition: 21:55 Disposition: DC/Tfer to [facility] 02 Condition: Serious Clinical Impression: CHF, Congestive heart failure, NSTEMI (non-ST elevated myocardial infarction), SOB (shortness of breath) Chest pain Qualifiers: Chest pain type: unspecified Qualified Code(s): R07.9 - Chest pain, unspecified - Discharge Information *PRESCRIPTION DRUG MONITORING PROGRAM REVIEWED*: No *COPY OF PRESCRIPTION DRUG MONITORING REPORT IN PATIENT ZOHRA: No Forms: ED Department Discharge, Interfacility Transfer [facility] Sepsis Event Note (ED) - Evaluation Sepsis Screening Result: No Definite Risk - Focused Exam Vital Signs: Vital Signs Temp Pulse Resp BP BP Pulse Ox 12/19/20 21:20 97 F 112 H 21 H 138/89 97 12/19/20 21:11 97 F 115 H 20 151/95 H 98 12/19/20 21:09 151/95 H 12/19/20 21:01 159/108 H 12/19/20 20:59 159/108 H 12/19/20 20:20 97.0 F 128 H 22 H 136/100 H 98 - My Orders Last 24 Hours: My Active Orders 12/19/20 20:24 Blood Culture x2 Reflex Set [OM.PC] Stat 12/19/20 20:30 CULTURE BLOOD [BC] Stat 12/19/20 21:07 CULTURE BLOOD [BC] Stat 12/19/20 21:38 REFLEX LACTIC ACID YES OR NO [CHEM] Routine - Assessment/Plan Last 24 Hours: My Active Orders 12/19/20 20:24 Blood Culture x2 Reflex Set [OM.PC] Stat 12/19/20 20:30 CULTURE BLOOD [BC] Stat 12/19/20 21:07 CULTURE BLOOD [BC] Stat 12/19/20 21:38 REFLEX LACTIC ACID YES OR NO [CHEM] Routine
[2020-12-19] MEDS ORDERED: Diltiazem 25 MG/5 ML SDV IVPUSH ONE (22:07)
[2020-12-19] MEDS ORDERED: Piperacillin/Tazobactam 3.375 GM in Sodium Chloride 0.9% 100 ML IV ONE (22:12)
[2020-12-20] MEDS ORDERED: Furosemide 40 MG/4 ML VIAL IVPUSH ONE (21:34)
== END 2020-12-19 22:42 ==
LOC: DL.ED 20:08
DX: I21.4 Non-ST elevation (NSTEMI) myocardial infarction (principal); I11.0 Hypertensive heart disease with heart failure; I50.9 Heart failure, unspecified; Z20.822 Contact with and (suspected) exposure to COVID-19; I25.2 Old myocardial infarction; E11.9 Type 2 diabetes mellitus without complications; Z95.5 Presence of coronary angioplasty implant and graft; Z79.82 Long term (current) use of aspirin; Z79.4 Long term (current) use of insulin; Z79.02 Long term (current) use of antithrombotics/antiplatelets
CPT/HCPCS: 0240U; 36415; 71045; 80053; 82550; 83605; 83735; 83880; 84484; 85025; 85610; 86140; 87040; 87077; 87186; 93005; 96365; 96375; 99285; A9270; J1940; J2543; J3490

== ENCOUNTER 2021-02-12 00:40 | Inpatient (IN) | payer MEDICARE, BC ==
[2021-02-12] MEDS ORDERED: Aspirin 81 MG Tab.Chew PO ONE (01:15)
[2021-02-12] MEDS ORDERED: Clopidogrel 75 MG Tab PO ONE (01:15)
[2021-02-12] MEDS ORDERED: atorvaSTATin 20 MG Tab PO ONE (01:18)
--- NOTE | 2021-02-12 01:34 | EDM.PDOC ---
ED HPI GENERAL MEDICAL PROBLEM - General Chief Complaint: Cardiovascular Problem Stated Complaint: AMBULANCE Time Seen by Provider: 02/12/21 00:57 Source of Information: Reports: Patient, EMS - History of Present Illness INITIAL COMMENTS - FREE TEXT/NARRATIVE: Pt presents vis EMS for chest pain that started around 1999 this evening. She was sitting on her porch when the pain started. She took a nitro and noted that it helped the pain a little. It started to come back so she took another and called EMS. The pain is described as a pressure in her left chest that is radiating to her left arm. She has had pain like this before, about 5 years ago or longer, when she had her previous heart attack. She is unable to tell all the meds she is on, but notes she does not take her cholesterol medication. She was given 4 baby aspirin in the ambulance. Pt denies any shortness of breath or nausea. Onset: Today Onset Date: 02/11/21 Onset Time: 20:00 Duration: Waxing/Waning Location: Reports: Chest Quality: Reports: Pressure, Same as Previous Episode Improves with: Reports: Other (nitro) Chest Pain Score (Numeric/FACES): 6 - Related Data Allergies Allergy/AdvReac Type Severity Reaction Status Date / Time No Known Allergies Allergy Verified 02/12/21 01:14 Home Meds: Home Meds atorvaSTATin Calcium [Lipitor] 80 mg PO DAILY 02/01/18 [History] Metoprolol Tartrate 25 mg PO DAILY 10/20/20 [History] Aspirin [Halfprin] 81 mg PO DAILY tab.ec 10/29/20 [Rx] Carbidopa/Levodopa [Carbidopa-Levodopa 25-100] 1 tab PO TID 10/29/20 [History] Clopidogrel [Plavix] 75 mg PO DAILY tablet 10/29/20 [Rx] Allopurinol [Zyloprim] 300 mg PO DAILY 02/12/21 [History] Furosemide 20 mg PO BID 02/12/21 [History] Isosorbide Mononitrate [Imdur] 30 mg PO DAILY 02/12/21 [History] Nitroglycerin [Nitrostat] 1 tab PO ASDIRECTED 02/12/21 [History] Spironolactone [Aldactone] 25 mg PO DAILY 02/12/21 [History] glipiZIDE [Glipizide ER] 10 mg PO DAILY 02/12/21 [History] Past Medical History HEENT History: Reports: Impaired Vision Cardiovascular History: Reports: Heart Failure, High Cholesterol, Hypertension, [place], Stents Other Cardiovascular History: PCI with at least 7 stents. Gastrointestinal History: Reports: Other (See Below) Other Gastrointestinal History: occasional constipation, takes supp prn Genitourinary History: Reports: Renal Disease [employer]OGR[employer]HER History: Reports: Musculoskeletal History: Reports: Osteoporosis Neurological History: Reports: CVA, Parkinson's Endocrine/Metabolic History: Reports: Diabetes, Type II - Infectious Disease History Infectious Disease History: Reports: Chicken Pox, Influenza, Measles, Mumps - Past Surgical History HEENT Surgical History: Reports: Tonsillectomy Cardiovascular Surgical History: Reports: Coronary Artery Stent GI Surgical History: Reports: Cholecystectomy Female Surgical History: Reports: Section Neurological Surgical History: Reports: None Social & Family History - Family History Family Medical History: No Pertinent Family History - Tobacco Use Tobacco Use Status *Q: Never Tobacco User - Caffeine Use Caffeine Use: Reports: Coffee - Recreational Drug Use Recreational Drug Use: No - Living Situation & Occupation Living situation: Reports: , with Spouse Occupation: Retired ED ROS GENERAL - Review of Systems Review Of Systems: Comprehensive ROS is negative, except as noted in HPI. ED EXAM, GENERAL - Physical Exam Exam: See Below Exam Limited By: No Limitations General Appearance: Alert, WD/WN, No Apparent Distress Eye Exam: Bilateral Eye: Normal Inspection Ears: Normal External Exam Nose: Normal Inspection Throat/Mouth: Normal Inspection, Normal Voice, No Airway Compromise Head: Atraumatic, Normocephalic Neck: Supple, Non-Tender Respiratory/Chest: No Respiratory Distress, Lungs Clear, Normal Breath Sounds, No Accessory Muscle Use, Chest Non-Tender Cardiovascular: Normal Peripheral Pulses, Regular Rate, Rhythm, No Murmur GI/Abdominal: Soft, Non-Tender (Female) Exam: Deferred Rectal (Female) Exam: Deferred Back Exam: Normal Inspection, Full Range of Motion Extremities: Normal Inspection, Normal Range of Motion, No Pedal Edema Neurological: Alert, Oriented, Normal Cognition, No Motor/Sensory Deficits Psychiatric: Normal Affect, Normal Mood Skin Exam: Warm, Dry, Intact, Normal Color, No Rash #1 Interpretation EKG Date: 02/12/21 Time: 12:57 Rhythm: NSR [place]: LAD-Left [place] Deviation P-Wave: Present QRS: Normal ST-T: Other (elevated aVR, V1, V2; depressed I, II, V3-V6) QT: Prolonged Comparison: No Change (no change from previous 2 EKGs, reviewed with Dr. Burnett from [facility] at 0105) Course - Vital Signs Last Recorded V/S: Last Vital Signs Temp 97 F 02/12/21 01:25 Pulse 91 02/12/21 01:25 Resp 16 02/12/21 01:25 BP 139/66 02/12/21 01:25 Pulse Ox 98 02/12/21 01:25 - Orders/Labs/Meds Orders: Active Orders 24 hr Category Date Time Status Heparin Sodium/0.45% NaCl [Heparin 25,000 Units in 1/2 Med 02/12/21 02:15 Ordered NS 500 ML] 25,000 units in 500 ml IV TITRATE Heparin Sodium/0.45% NaCl [Heparin 25,000 Units in 1/2 Med 02/12/21 02:15 Ordered NS 500 ML] 25,000 units in 500 ml IV TITRATE Medication Orders Heparin Sodium/Sodium Chloride (Heparin 25,000 Units In 1/2 Ns 500 Ml) 25,000 units in 500 mls @ 14.163 mls/hr IV TITRATE BENJAMÍN; Protocol Heparin Sodium/Sodium Chloride (Heparin 25,000 Units In 1/2 Ns 500 Ml) 25,000 units in 500 mls @ 14.163 mls/hr IV TITRATE BENJAMÍN; Protocol Labs: Laboratory Tests 02/12/21 02/12/21 02/12/21 Range/Units 01:09 01:09 01:30 WBC 7.6 (5.0-10.0) 10^3/uL RBC 4.60 (4.2-5.4) 10^6/uL Hgb 14.4 (12.0-16.0) g/dL Hct 44.2 (37.0-47.0) % MCV 96.1 (80-100) fL MCH 31.3 (27.0-34.0) pg MCHC 32.6 L (33.0-35.0) g/dL Plt Count 169 (150-450) 10^3/uL Neut % (Auto) 70.6 (42.2-75.2) % Lymph % (Auto) 23.0 (20.5-50.1) % [place] % (Auto) 4.3 (2-8) % Eos % (Auto) 1.7 (1.0-3.0) % Baso % (Auto) 0.4 (0.0-1.0) % PT 10.2 (9.0-12.0) SEC INR 1.0 (0.9-1.2) APTT 25.7 (22.0-34.0) SEC Sodium 138 (136-145) mmol/L Potassium 4.8 (3.5-5.1) mmol/L Chloride 103 (98-107) mmol/L Carbon Dioxide 23 (21-32) mmol/L Anion Gap 16.8 H (7-13) mEq/L BUN 46 H (7-18) mg/dL Creatinine 1.55 H (0.55-1.02) mg/dL Est Cr Clr Drug Dosing TNP Estimated GFR (MDRD) 31 BUN/Creatinine Ratio 29.7 (No establ ref range) Glucose 225 H (70-99) mg/dL Calcium 8.9 (8.5-10.1) mg/dL Total Bilirubin 0.4 (0.2-1.0) mg/dL AST 20 (15-37) U/L ALT 36 (14-59) U/L Alkaline Phosphatase 129 H (46-116) U/L Troponin I High Sens 710 H* (<=51) pg/mL Total Protein 6.8 (6.4-8.2) g/dL Albumin 3.1 L (3.4-5.0) g/dL Globulin 3.7 Albumin/Globulin Ratio 0.84 Meds: Medications Generic Name Dose Route Start Last Admin Trade Name Freq PRN Reason Stop Dose Admin Heparin Sodium/Sodium Chloride 25,000 units in 500 mls @ 14.163 mls/hr 02/12/21 02:15 Heparin 25,000 Units In 1/2 Ns 500 Ml IV TITRATE BENJAMÍN Protocol 12 UNITS/KG/HR Heparin Sodium/Sodium Chloride 25,000 units in 500 mls @ 14.163 mls/hr 02/12/21 02:15 Heparin 25,000 Units In 1/2 Ns 500 Ml IV TITRATE BENJAMÍN Protocol 12 UNITS/KG/HR Discontinued Medications Generic Name Dose Route Start Last Admin Trade Name Freq PRN Reason Stop Dose Admin Aspirin 324 mg 02/12/21 01:15 02/12/21 01:25 Aspirin 81 Mg Tab.Chew PO 02/12/21 01:16 Not Given ONETIME ONE Atorvastatin Calcium 80 mg 02/12/21 01:18 02/12/21 01:24 Atorvastatin 20 Mg Tab PO 02/12/21 01:19 80 mg ONETIME ONE Administration Clopidogrel Bisulfate 300 mg 02/12/21 01:15 02/12/21 01:22 Clopidogrel 75 Mg Tab PO 02/12/21 01:16 300 mg ONETIME ONE Administration Heparin Sodium (Porcine) 4,000 units 02/12/21 02:10 Heparin Sodium 5,000 Units/Ml Vial IVPUSH 02/12/21 02:11 .BOLUS ONE Metoprolol Tartrate 25 mg 02/12/21 02:12 Metoprolol Tartrate 25 Mg Tab PO 02/12/21 02:13 ONETIME ONE - Re-Assessments/Exams Free Text/Narrative Re-Assessment/Exam: Pt is now pain free. Her troponin came back 14 times the upper limit of normal. Geoff was contacted and discussed the case with Dr. Burnett. Currently there are no beds available for NSTEMI patients. He recommends starting a beta walter in addition to previously discussed treatments to help decrease the ischemic demand. He also recommends she remain NPO and to trend the troponins. Geoff will contact us when there is a bed available. Dr. Sterling, hospitalist for [facility], was contacted for admission pending transfer. Case was discussed, he was made aware of Dr. Burnett's recommendations and agrees to admit the patient. 02/12/21 02:16 Departure - Departure Time of Disposition: 02:23 Disposition: Admitted As Inpatient 68 Condition: Fair Clinical Impression: NSTEMI (non-ST elevated myocardial infarction) Forms: ED Department Discharge Sepsis Event Note (ED) - Evaluation Sepsis Screening Result: No Definite Risk - Focused Exam Vital Signs: Vital Signs Temp Pulse Resp BP Pulse Ox 02/12/21 01:25 97 F 91 16 139/66 98 02/12/21 01:11 96.3 F L 95 23 H 168/82 H 97 - My Orders Last 24 Hours: My Active Orders 02/12/21 02:15 Heparin Sodium/0.45% NaCl [Heparin 25,000 Units in 1/2 NS 500 ML] 25,000 units in 500 ml IV TITRATE Heparin Sodium/0.45% NaCl [Heparin 25,000 Units in 1/2 NS 500 ML] 25,000 units in 500 ml IV TITRATE - Assessment/Plan Last 24 Hours: My Active Orders 02/12/21 02:15 Heparin Sodium/0.45% NaCl [Heparin 25,000 Units in 1/2 NS 500 ML] 25,000 units in 500 ml IV TITRATE Heparin Sodium/0.45% NaCl [Heparin 25,000 Units in 1/2 NS 500 ML] 25,000 units in 500 ml IV TITRATE
[2021-02-12 01:38] LABS: CHLORIDE,CL 103 mmol/L (98-107)
[2021-02-12 02:00] LABS: PTT,PARTIAL THROMBOPLSTIN TIME 25.7 SEC (22.0-34.0)
[2021-02-12 02:03] LABS: ANION GAP 16.8 mEq/L (7-13); SODIUM,NA 138 mmol/L (136-145)
[2021-02-12] MEDS ORDERED: Heparin Sodium 5,000 Units/ML Vial IVPUSH ONE ×2 (02:10→21:06)
[2021-02-12] MEDS ORDERED: Metoprolol Tartrate 25 MG Tab PO ONE (02:12)
[2021-02-12] MEDS ORDERED: Heparin Sodium/0.45% NaCl 25,000 UNITS/500 ML BAG IV SCH (02:15)
[2021-02-12] MEDS: Heparin Sodium/0.45% NaCl 25,000 UNITS/500 ML BAG IV SCH (02:19)
[2021-02-12] MEDS ORDERED: 50% Dextrose in Water 50 ML Syringe IVPUSH PRN (05:09)
[2021-02-12] MEDS ORDERED: Glucagon,Human Recombinant 1 MG Vial IM PRN (05:09)
[2021-02-12] MEDS ORDERED: Sodium Chloride 0.9% 10 ML Syringe FLUSH PRN (05:27)
[2021-02-12] MEDS ORDERED: Ibuprofen 600 MG Tab PO PRN (05:27)
[2021-02-12] MEDS ORDERED: Acetaminophen 325 MG Tab PO PRN (05:27)
[2021-02-12] MEDS ORDERED: oxyCODONE 5 MG Tab PO PRN (05:27)
[2021-02-12] MEDS ORDERED: Temazepam 15 MG Cap PO PRN (05:27)
--- NOTE | 2021-02-12 05:27 | PCM.HP ---
H&P History of Present Illness - General Date of Service: 02/12/21 Admit Problem/Dx: Admission Diagnosis/Problem Admission Diagnosis/Problem NSTEMI, initial episode of care Source of Information: Patient, Provider - History of Present Illness Initial Comments - Free Text/Narative: h/o cad, multiple cardiac evaluations and prior stenting presented with left sided, pressure like cp, rad to left arm, started while at rest, resolved with 2 sl ntg no assoicated sob in ER tx-ed with asa, plavix heparin drip, metoprolol now comfortable in ER noted elevated trop [facility] has no beds Chest Pain Score (Numeric/FACES): 6 - Related Data Allergies/Adverse Reactions: Allergies Allergy/AdvReac Type Severity Reaction Status Date / Time No Known Allergies Allergy Verified 02/12/21 01:14 Home Medications: Home Meds atorvaSTATin Calcium [Lipitor] 80 mg PO DAILY 02/01/18 [History] Metoprolol Tartrate 25 mg PO DAILY 10/20/20 [History] Aspirin [Halfprin] 81 mg PO DAILY tab.ec 10/29/20 [Rx] Carbidopa/Levodopa [Carbidopa-Levodopa 25-100] 1 tab PO TID 10/29/20 [History] Clopidogrel [Plavix] 75 mg PO DAILY tablet 10/29/20 [Rx] Allopurinol [Zyloprim] 300 mg PO DAILY 02/12/21 [History] Furosemide 20 mg PO BID 02/12/21 [History] Isosorbide Mononitrate [Imdur] 30 mg PO DAILY 02/12/21 [History] Nitroglycerin [Nitrostat] 1 tab PO ASDIRECTED 02/12/21 [History] Spironolactone [Aldactone] 25 mg PO DAILY 02/12/21 [History] glipiZIDE [Glipizide ER] 10 mg PO DAILY 02/12/21 [History] Past Medical History HEENT History: Reports: Impaired Vision Cardiovascular History: Reports: Heart Failure, High Cholesterol, Hypertension, [place], Stents Other Cardiovascular History: PCI with at least 7 stents. Gastrointestinal History: Reports: Other (See Below) Other Gastrointestinal History: occasional constipation, takes supp prn Genitourinary History: Reports: Renal Disease P[employer]ER [employer]EDER History: Reports: Musculoskeletal History: Reports: Osteoporosis Neurological History: Reports: CVA, Parkinson's Endocrine/Metabolic History: Reports: Diabetes, Type II - Infectious Disease History Infectious Disease History: Reports: Chicken Pox, Influenza, Measles, Mumps - Past Surgical History HEENT Surgical History: Reports: Tonsillectomy Cardiovascular Surgical History: Reports: Coronary Artery Stent GI Surgical History: Reports: Cholecystectomy Female Surgical History: Reports: Section Neurological Surgical History: Reports: None Social & Family History - Family History Family Medical History: No Pertinent Family History - Tobacco Use Tobacco Use Status *Q: Never Tobacco User - Caffeine Use Caffeine Use: Reports: Coffee - Recreational Drug Use Recreational Drug Use: No - Living Situation & Occupation Living situation: Reports: , with Spouse Occupation: Retired H&P Review of Systems - Review of Systems: Review Of Systems: See Below General: Denies: Fever Pulmonary: Denies: Shortness of Breath, Wheezing, Cough Cardiovascular: Reports: Chest Pain. Denies: Edema Gastrointestinal: Denies: Abdominal Pain Genitourinary: Denies: Dysuria Psychiatric: Denies: Confusion Exam - Exam Exam: See Below - Vital Signs Vital Signs: Last Vital Signs Temp 96.6 F L 02/12/21 02:50 Pulse 84 02/12/21 02:50 Resp 18 02/12/21 02:50 BP 135/77 02/12/21 02:50 Pulse Ox 98 02/12/21 02:50 Weight: 125 lb 8 oz - Exam General: Alert, Oriented Neck: Supple Lungs: Clear to Auscultation, Normal Respiratory Effort Cardiovascular: Regular Rate, Regular Rhythm GI/Abdominal Exam: Normal Bowel Sounds, Soft, Non-Tender Extremities: No Pedal Edema - Patient Data Lab Results Last 24 hrs: Laboratory Results - last 24 hr 02/12/21 02/12/21 02/12/21 Range/Units 01:09 01:09 01:30 WBC 7.6 (5.0-10.0) 10^3/uL RBC 4.60 (4.2-5.4) 10^6/uL Hgb 14.4 (12.0-16.0) g/dL Hct 44.2 (37.0-47.0) % MCV 96.1 (80-100) fL MCH 31.3 (27.0-34.0) pg MCHC 32.6 L (33.0-35.0) g/dL Plt Count 169 (150-450) 10^3/uL Neut % (Auto) 70.6 (42.2-75.2) % Lymph % (Auto) 23.0 (20.5-50.1) % [place] % (Auto) 4.3 (2-8) % Eos % (Auto) 1.7 (1.0-3.0) % Baso % (Auto) 0.4 (0.0-1.0) % PT 10.2 (9.0-12.0) SEC INR 1.0 (0.9-1.2) APTT 25.7 (22.0-34.0) SEC Sodium 138 (136-145) mmol/L Potassium 4.8 (3.5-5.1) mmol/L Chloride 103 (98-107) mmol/L Carbon Dioxide 23 (21-32) mmol/L Anion Gap 16.8 H (7-13) mEq/L BUN 46 H (7-18) mg/dL Creatinine 1.55 H (0.55-1.02) mg/dL Est Cr Clr Drug Dosing TNP Estimated GFR (MDRD) 31 BUN/Creatinine Ratio 29.7 (No establ ref range) Glucose 225 H (70-99) mg/dL Calcium 8.9 (8.5-10.1) mg/dL Total Bilirubin 0.4 (0.2-1.0) mg/dL AST 20 (15-37) U/L ALT 36 (14-59) U/L Alkaline Phosphatase 129 H (46-116) U/L Troponin I High Sens 710 H* (<=51) pg/mL Total Protein 6.8 (6.4-8.2) g/dL Albumin 3.1 L (3.4-5.0) g/dL Globulin 3.7 Albumin/Globulin Ratio 0.84 SARS-CoV-2 RNA (HENOK) (NEGATIVE) 02/12/21 Range/Units 02:15 WBC (5.0-10.0) 10^3/uL RBC (4.2-5.4) 10^6/uL Hgb (12.0-16.0) g/dL Hct (37.0-47.0) % MCV (80-100) fL MCH (27.0-34.0) pg MCHC (33.0-35.0) g/dL Plt Count (150-450) 10^3/uL Neut % (Auto) (42.2-75.2) % Lymph % (Auto) (20.5-50.1) % [place] % (Auto) (2-8) % Eos % (Auto) (1.0-3.0) % Baso % (Auto) (0.0-1.0) % PT (9.0-12.0) SEC INR (0.9-1.2) APTT (22.0-34.0) SEC Sodium (136-145) mmol/L Potassium (3.5-5.1) mmol/L Chloride (98-107) mmol/L Carbon Dioxide (21-32) mmol/L Anion Gap (7-13) mEq/L BUN (7-18) mg/dL Creatinine (0.55-1.02) mg/dL Est Cr Clr Drug Dosing Estimated GFR (MDRD) BUN/Creatinine Ratio (No establ ref range) Glucose (70-99) mg/dL Calcium (8.5-10.1) mg/dL Total Bilirubin (0.2-1.0) mg/dL AST (15-37) U/L ALT (14-59) U/L Alkaline Phosphatase (46-116) U/L Troponin I High Sens (<=51) pg/mL Total Protein (6.4-8.2) g/dL Albumin (3.4-5.0) g/dL Globulin Albumin/Globulin Ratio SARS-CoV-2 RNA (HENOK) Negative (NEGATIVE) Result Diagrams: 02/12/21 01:09 02/12/21 01:09 - Problem List (1) Diabetes SNOMED Code(s): 61130413 ICD Code: E11.9 - TYPE 2 DIABETES MELLITUS WITHOUT COMPLICATIONS Status: Acute Current Visit: Yes (2) HTN (hypertension) SNOMED Code(s): 21400904 ICD Code: I10 - ESSENTIAL (PRIMARY) HYPERTENSION Status: Acute Current Visit: Yes (3) CHF (congestive heart failure) SNOMED Code(s): 25429471 ICD Code: I50.9 - HEART FAILURE, UNSPECIFIED Status: Acute Current Visit: No Qualifiers: Heart failure type: unspecified Heart failure chronicity: acute on chronic Qualified Code(s): I50.9 - Heart failure, unspecified (4) NSTEMI (non-ST elevated myocardial infarction) SNOMED Code(s): 04751144 ICD Code: I21.4 - NON-ST ELEVATION (NSTEMI) MYOCARDIAL INFARCTION Status: Acute Current Visit: No Problem List Initiated/Reviewed/Updated: Yes Orders Last 24hrs: Active Orders 24 hr Category Date Time Status Admission Diagnosis [ADT] Routine ADT 02/12/21 02:22 Ordered Admission Status [Patient Status] [ADT] Routine ADT 02/12/21 02:22 Active Glucose [Blood Glucose Check, Bedside] [RC] QIDACANDBED Care 02/12/21 05:09 Active Telemetry Monitoring [Cardiac Monitoring] [RC] . Care 02/12/21 04:59 Active DIRECTED BASIC METABOLIC PANEL,BMP [CHEM] Timed Lab 02/12/21 09:00 Ordered CBC WITH AUTO DIFF [HEME] Timed Lab 02/12/21 09:00 Ordered PTT,PARTIAL THROMBOPLSTIN TIME [COAG] Timed Lab 02/12/21 09:00 Ordered TROPONIN I HIGH SENSITIVITY [CHEM] Timed Lab 02/12/21 09:00 Ordered Aspirin Med 02/12/21 08:00 Active 325 mg PO WITHBREAKFAST Carbidopa/Levodopa [Sinemet 25-100 mg] Med 02/12/21 09:00 Active 1 tab PO TID Clopidogrel [Plavix] Med 02/12/21 09:00 Active 75 mg PO DAILY Dextrose 50% in Water Med 02/12/21 05:09 Active 50 ml IVPUSH Q15M PRN Furosemide [Lasix] Med 02/12/21 08:00 Active 20 mg PO BIDDIURETIC Glucagon,Human Recombinant [GlucaGen] Med 02/12/21 05:09 Active 1 mg IM Q15M PRN Heparin Sodium/0.45% NaCl [Heparin 25,000 Units in 1/2 Med 02/12/21 02:15 Active NS 500 ML] 25,000 units in 500 ml IV TITRATE Heparin Sodium/0.45% NaCl [Heparin 25,000 Units in /2 Med 02/12/21 02:15 Active NS 500 ML] 25,000 units in 500 ml IV TITRATE Insulin Lispro [HumaLOG] Med 02/12/21 08:00 Active See Protocol SUBCUT TIDMEALS Isosorbide Mononitrate [Imdur] Med 02/12/21 09:00 Active 30 mg PO DAILY Metoprolol Tartrate [Lopressor] Med 02/12/21 09:00 Pending 25 mg PO BID Spironolactone [Aldactone] Med 02/12/21 09:00 Active 25 mg PO DAILY allopurinoL [Zyloprim] Med 02/12/21 09:00 Active 300 mg PO DAILY atorvaSTATin [Lipitor] Med 02/12/21 21:00 Active 80 mg PO BEDTIME glipiZIDE [Glucotrol XL] Med 02/12/21 09:00 Active 10 mg PO DAILY Medication Orders Allopurinol (Allopurinol 300 Mg Tab) 300 mg PO DAILY [facility] Aspirin (Aspirin 325 Mg Tab) 325 mg PO WITHBREAKFAST [facility] Atorvastatin Calcium (Atorvastatin 20 Mg Tab) 80 mg PO BEDTIME BENJAMÍN Carbidopa/Levodopa (Carbidopa/Levodopa 25-100 Mg Tab) 1 tab PO TID [facility] Clopidogrel Bisulfate (Clopidogrel 75 Mg Tab) 75 mg PO DAILY [facility] Dextrose/Water (50% Dextrose In Water 50 Ml Syringe) 50 ml IVPUSH Q15M PRN PRN Reason: Hypoglycemia Furosemide (Furosemide 20 Mg Tab) 20 mg PO BIDDIURETIC [facility] Glipizide (Glipizide 5 Mg Tab.Er) 10 mg PO DAILY BENJAMÍN Glucagon (Glucagon,Human Recombinant 1 Mg Vial) 1 mg IM Q15M PRN PRN Reason: Hypoglycemia Heparin Sodium/Sodium Chloride (Heparin 25,000 Units In 1/2 Ns 500 Ml) 25,000 units in 500 mls @ 14.163 mls/hr IV TITRATE BENJAMÍN; Protocol Last Admin: 02/12/21 02:19 Dose: 12 units/kg/hr, 14.163 mls/hr Documented by: MIYA Cosigned by: FRANSISCO Heparin Sodium/Sodium Chloride (Heparin 25,000 Units In 1/2 Ns 500 Ml) 25,000 units in 500 mls @ 14.163 mls/hr IV TITRATE BENJAMÍN; Protocol Insulin Human Lispro (Insulin Lispro 100 Units/Ml 3 Ml Vial) 0 unit SUBCUT TIDMEALS BENJAMÍN; Protocol Isosorbide Mononitrate (Isosorbide Mononitrate 30 Mg Tab.Er) 30 mg PO DAILY [facility] Metoprolol Tartrate (Metoprolol Tartrate 25 Mg Tab) 25 mg PO BID [facility] Spironolactone (Spironolactone 25 Mg Tab) 25 mg PO DAILY [facility] Assessment/Plan Comment:: Acute non st mi with know h/o CAD received ASA, plavix 300 mg po, lipitor, metoprolol in ER started Heparin wght based nomogram cont asa, plavix, liptor, metoprolol, imdur plan to transfer to [facility] for cardiology eval when bed available monitor on tele trend troponins htn treat with metoprolol CKD III, h/o chf with preserved EF cont lasix, spironolactone monitor elytes and renal function Parkinson's dx cont Carbidopa/levodopa DM glipizide supplemental insulin and hypoglycemia protocol as needed dvt prophylaxis full dose heparin would like cpr but no intubation
[2021-02-12] MEDS: Furosemide 20 MG Tab PO SCH ×2 (08:32→13:00)
[2021-02-12] MEDS: Spironolactone 25 MG Tab PO SCH (08:32)
[2021-02-12] MEDS: Isosorbide Mononitrate 30 MG Tab.ER PO SCH (08:32)
[2021-02-12] MEDS: Aspirin 325 MG Tab PO SCH (08:33)
[2021-02-12] MEDS: Carbidopa/Levodopa 25-100 MG Tab PO SCH ×3 (08:33→20:40)
[2021-02-12] MEDS: glipiZIDE 5 MG Tab.ER PO SCH (08:33)
[2021-02-12] MEDS: Allopurinol 300 MG Tab PO SCH (08:33)
[2021-02-12] MEDS: Clopidogrel 75 MG Tab PO SCH (08:33)
[2021-02-12] MEDS: Insulin Lispro 100 Units/ML 3 ML Vial SUBCUT SCH ×3 (08:34→17:27)
[2021-02-12] MEDS ORDERED: Metoprolol Tartrate 25 MG Tab PO SCH (09:00)
[2021-02-12 09:30] LABS: ANION GAP 15.4 mEq/L (7-13)
--- NOTE | 2021-02-12 11:58 | PCM.PN ---
- General Info Date of Service: 02/12/21 Subjective Update: since admission the patient remained hemodynamically stable no further chest pain Has remained on heparin drip without obvious bleeding complication No complains of shortness of breath - Review of Systems General: Denies: Fever, Weakness Pulmonary: Denies: Shortness of Breath Cardiovascular: Denies: Chest Pain Gastrointestinal: Denies: Abdominal Pain Psychiatric: Denies: Confusion - Patient Data Vitals - Most Recent: Last Vital Signs Temp 97.6 F 02/12/21 11:27 Pulse 55 L 02/12/21 11:27 Resp 18 02/12/21 11:27 BP 97/59 L 02/12/21 11:27 Pulse Ox 98 02/12/21 11:27 Weight - Most Recent: 125 lb 8 oz I&O - Last 24 Hours: Intake & Output 02/11/21 02/12/21 02/12/21 22:59 06:59 14:59 Intake Total 300 Balance 300 Lab Results Last 24 Hours: Laboratory Results - last 24 hr 02/12/21 02/12/21 02/12/21 Range/Units 01:09 01:09 01:30 WBC 7.6 (5.0-10.0) 10^3/uL RBC 4.60 (4.2-5.4) 10^6/uL Hgb 14.4 (12.0-16.0) g/dL Hct 44.2 (37.0-47.0) % MCV 96.1 (80-100) fL MCH 31.3 (27.0-34.0) pg MCHC 32.6 L (33.0-35.0) g/dL Plt Count 169 (150-450) 10^3/uL Neut % (Auto) 70.6 (42.2-75.2) % Lymph % (Auto) 23.0 (20.5-50.1) % [place] % (Auto) 4.3 (2-8) % Eos % (Auto) 1.7 (1.0-3.0) % Baso % (Auto) 0.4 (0.0-1.0) % PT 10.2 (9.0-12.0) SEC INR 1.0 (0.9-1.2) APTT 25.7 (22.0-34.0) SEC Sodium 138 (136-145) mmol/L Potassium 4.8 (3.5-5.1) mmol/L Chloride 103 (98-107) mmol/L Carbon Dioxide 23 (21-32) mmol/L Anion Gap 16.8 H (7-13) mEq/L BUN 46 H (7-18) mg/dL Creatinine 1.55 H (0.55-1.02) mg/dL Est Cr Clr Drug Dosing TNP Estimated GFR (MDRD) 31 BUN/Creatinine Ratio 29.7 (No establ ref range) Glucose 225 H (70-99) mg/dL POC Glucose (70-99) mg/dL Calcium 8.9 (8.5-10.1) mg/dL Total Bilirubin 0.4 (0.2-1.0) mg/dL AST 20 (15-37) U/L ALT 36 (14-59) U/L Alkaline Phosphatase 129 H (46-116) U/L Troponin I High Sens 710 H* (<=51) pg/mL Total Protein 6.8 (6.4-8.2) g/dL Albumin 3.1 L (3.4-5.0) g/dL Globulin 3.7 Albumin/Globulin Ratio 0.84 SARS-CoV-2 RNA ([facility]ENOK) (NEGATIVE) 02/12/21 02/12/21 02/12/21 Range/Units 02:15 07:57 09:00 WBC (5.0-10.0) 10^3/uL RBC (4.2-5.4) 10^6/uL Hgb (12.0-16.0) g/dL Hct (37.0-47.0) % MCV (80-100) fL MCH (27.0-34.0) pg MCHC (33.0-35.0) g/dL Plt Count (150-450) 10^3/uL Neut % (Auto) (42.2-75.2) % Lymph % (Auto) (20.5-50.1) % [place] % (Auto) (2-8) % Eos % (Auto) (1.0-3.0) % Baso % (Auto) (0.0-1.0) % PT (9.0-12.0) SEC INR (0.9-1.2) APTT (22.0-34.0) SEC Sodium 140 (136-145) mmol/L Potassium 4.4 (3.5-5.1) mmol/L Chloride 104 (98-107) mmol/L Carbon Dioxide 25 (21-32) mmol/L Anion Gap 15.4 H (7-13) mEq/L BUN 43 H (7-18) mg/dL Creatinine 1.34 H (0.55-1.02) mg/dL Est Cr Clr Drug Dosing 21.48 Estimated GFR (MDRD) 37 BUN/Creatinine Ratio (No establ ref range) Glucose 130 H (70-99) mg/dL POC Glucose 116 H (70-99) mg/dL Calcium 8.9 (8.5-10.1) mg/dL Total Bilirubin (0.2-1.0) mg/dL AST (15-37) U/L ALT (14-59) U/L Alkaline Phosphatase (46-116) U/L Troponin I High Sens 5755 H* (<=51) pg/mL Total Protein (6.4-8.2) g/dL Albumin (3.4-5.0) g/dL Globulin Albumin/Globulin Ratio SARS-CoV-2 RNA ([facility]ENOK) Negative (NEGATIVE) 02/12/21 02/12/21 Range/Units 09:00 09:00 WBC 6.9 (5.0-10.0) 10^3/uL RBC 4.31 (4.2-5.4) 10^6/uL Hgb 13.5 (12.0-16.0) g/dL Hct 41.3 (37.0-47.0) % MCV 95.8 (80-100) fL MCH 31.3 (27.0-34.0) pg MCHC 32.7 L (33.0-35.0) g/dL Plt Count 177 (150-450) 10^3/uL Neut % (Auto) 59.0 (42.2-75.2) % Lymph % (Auto) 33.3 (20.5-50.1) % [place] % (Auto) 5.4 (2-8) % Eos % (Auto) 1.9 (1.0-3.0) % Baso % (Auto) 0.4 (0.0-1.0) % PT (9.0-12.0) SEC INR (0.9-1.2) APTT 116.2 H* (22.0-34.0) SEC Sodium (136-145) mmol/L Potassium (3.5-5.1) mmol/L Chloride (98-107) mmol/L Carbon Dioxide (21-32) mmol/L Anion Gap (7-13) mEq/L BUN (7-18) mg/dL Creatinine (0.55-1.02) mg/dL Est Cr Clr Drug Dosing Estimated GFR (MDRD) BUN/Creatinine Ratio (No establ ref range) Glucose (70-99) mg/dL POC Glucose (70-99) mg/dL Calcium (8.5-10.1) mg/dL Total Bilirubin (0.2-1.0) mg/dL AST (15-37) U/L ALT (14-59) U/L Alkaline Phosphatase (46-116) U/L Troponin I High Sens (<=51) pg/mL Total Protein (6.4-8.2) g/dL Albumin (3.4-5.0) g/dL Globulin Albumin/Globulin Ratio SARS-CoV-2 RNA ([facility]OK) (NEGATIVE) Med Orders - Current: Current Medications Acetaminophen (Acetaminophen 325 Mg Tab) 650 mg PO Q4H PRN PRN Reason: Pain (Mild 1-3)/fever Allopurinol (Allopurinol 300 Mg Tab) 300 mg PO DAILY [facility] Last Admin: 02/12/21 08:33 Dose: 300 mg Documented by: Aspirin (Aspirin 325 Mg Tab) 325 mg PO WITHBREAKFAST [facility] Last Admin: 02/12/21 08:33 Dose: 325 mg Documented by: Atorvastatin Calcium (Atorvastatin 20 Mg Tab) 80 mg PO BEDTIME [facility] Carbidopa/Levodopa (Carbidopa/Levodopa 25-100 Mg Tab) 1 tab PO TID [facility] Last Admin: 02/12/21 08:33 Dose: 1 tab Documented by: Clopidogrel Bisulfate (Clopidogrel 75 Mg Tab) 75 mg PO DAILY [facility] Last Admin: 02/12/21 08:33 Dose: 75 mg Documented by: Dextrose/Water (50% Dextrose In Water 50 Ml Syringe) 50 ml IVPUSH Q15M PRN PRN Reason: Hypoglycemia Docusate Sodium (Docusate Sodium 100 Mg Cap) 100 mg PO BID PRN PRN Reason: Constipation Furosemide (Furosemide 20 Mg Tab) 20 mg PO BIDDIURETIC [facility] Last Admin: 02/12/21 08:32 Dose: 20 mg Documented by: Glipizide (Glipizide 5 Mg Tab.Er) 10 mg PO DAILY [facility] Last Admin: 02/12/21 08:33 Dose: 10 mg Documented by: Glucagon (Glucagon,Human Recombinant 1 Mg Vial) 1 mg IM Q15M PRN PRN Reason: Hypoglycemia Heparin Sodium/Sodium Chloride (Heparin 25,000 Units In 1/2 Ns 500 Ml) 25,000 units in 500 mls @ 14.163 mls/hr IV TITRATE [facility]; Protocol Last Titration: 02/12/21 11:11 Dose: 9 units/kg/hr, 10.622 mls/hr Documented by: Heparin Sodium/Sodium Chloride (Heparin 25,000 Units In 1/2 Ns 500 Ml) 25,000 units in 500 mls @ 14.163 mls/hr IV TITRATE [facility]; Protocol Ibuprofen (Ibuprofen 600 Mg Tab) 600 mg PO Q6H PRN PRN Reason: Pain (moderate 4-6) Insulin Human Lispro (Insulin Lispro 100 Units/Ml 3 Ml Vial) 0 unit SUBCUT TIDMEALS [facility]; Protocol Last Admin: 02/12/21 11:36 Dose: Not Given Documented by: Isosorbide Mononitrate (Isosorbide Mononitrate 30 Mg Tab.Er) 30 mg PO DAILY [facility] Last Admin: 02/12/21 08:32 Dose: 30 mg Documented by: Metoprolol Tartrate (Metoprolol Tartrate 25 Mg Tab) 25 mg PO BID [facility] Last Admin: 02/12/21 08:33 Dose: 25 mg Documented by: Oxycodone HCl (Oxycodone 5 Mg Tab) 5 mg PO Q4H PRN PRN Reason: Pain (severe 7-10) Sodium Chloride (Sodium Chloride 0.9% 10 Ml Syringe) 10 ml FLUSH ASDIRECTED PRN PRN Reason: Keep Vein Open Spironolactone (Spironolactone 25 Mg Tab) 25 mg PO DAILY [facility] Last Admin: 02/12/21 08:32 Dose: 25 mg Documented by: Temazepam (Temazepam 15 Mg Cap) 15 mg PO BEDTIME PRN PRN Reason: Sleep Discontinued Medications Aspirin (Aspirin 81 Mg Tab.Chew) 324 mg PO ONETIME ONE Stop: 02/12/21 01:16 Last Admin: 02/12/21 01:25 Dose: Not Given Documented by: Atorvastatin Calcium (Atorvastatin 20 Mg Tab) 80 mg PO ONETIME ONE Stop: 02/12/21 01:19 Last Admin: 02/12/21 01:24 Dose: 80 mg Documented by: Atorvastatin Calcium (Atorvastatin 20 Mg Tab) 40 mg PO BEDTIME [facility] Clopidogrel Bisulfate (Clopidogrel 75 Mg Tab) 300 mg PO ONETIME ONE Stop: 02/12/21 01:16 Last Admin: 02/12/21 01:22 Dose: 300 mg Documented by: Heparin Sodium (Porcine) (Heparin Sodium 5,000 Units/Ml Vial) 4,000 units IVPUSH .BOLUS ONE Stop: 02/12/21 02:11 Last Admin: 02/12/21 02:17 Dose: 4,000 units Documented by: Metoprolol Tartrate (Metoprolol Tartrate 25 Mg Tab) 25 mg PO ONETIME ONE Stop: 02/12/21 02:13 Last Admin: 02/12/21 02:27 Dose: 25 mg Documented by: - Exam General: Alert, Oriented Neck: Supple Lungs: Clear to Auscultation, Normal Respiratory Effort Cardiovascular: Regular Rate, Regular Rhythm GI/Abdominal Exam: Normal Bowel Sounds, Soft, Non-Tender Extremities: No Pedal Edema Neurological: No New Focal Deficit Psy/Mental Status: Alert, Normal Affect, Normal Mood - Patient Data Lab Results Last 24 hrs: Laboratory Results - last 24 hr 02/12/21 02/12/21 02/12/21 Range/Units 01:09 01:09 01:30 WBC 7.6 (5.0-10.0) 10^3/uL RBC 4.60 (4.2-5.4) 10^6/uL Hgb 14.4 (12.0-16.0) g/dL Hct 44.2 (37.0-47.0) % MCV 96.1 (80-100) fL MCH 31.3 (27.0-34.0) pg MCHC 32.6 L (33.0-35.0) g/dL Plt Count 169 (150-450) 10^3/uL Neut % (Auto) 70.6 (42.2-75.2) % Lymph % (Auto) 23.0 (20.5-50.1) % [place] % (Auto) 4.3 (2-8) % Eos % (Auto) 1.7 (1.0-3.0) % Baso % (Auto) 0.4 (0.0-1.0) % PT 10.2 (9.0-12.0) SEC INR 1.0 (0.9-1.2) APTT 25.7 (22.0-34.0) SEC Sodium 138 (136-145) mmol/L Potassium 4.8 (3.5-5.1) mmol/L Chloride 103 (98-107) mmol/L Carbon Dioxide 23 (21-32) mmol/L Anion Gap 16.8 H (7-13) mEq/L BUN 46 H (7-18) mg/dL Creatinine 1.55 H (0.55-1.02) mg/dL Est Cr Clr Drug Dosing TNP Estimated GFR (MDRD) 31 BUN/Creatinine Ratio 29.7 (No establ ref range) Glucose 225 H (70-99) mg/dL POC Glucose (70-99) mg/dL Calcium 8.9 (8.5-10.1) mg/dL Total Bilirubin 0.4 (0.2-1.0) mg/dL AST 20 (15-37) U/L ALT 36 (14-59) U/L Alkaline Phosphatase 129 H (46-116) U/L Troponin I High Sens 710 H* (<=51) pg/mL Total Protein 6.8 (6.4-8.2) g/dL Albumin 3.1 L (3.4-5.0) g/dL Globulin 3.7 Albumin/Globulin Ratio 0.84 SARS-CoV-2 RNA ([facility]OK) (NEGATIVE) 02/12/21 02/12/21 02/12/21 Range/Units 02:15 07:57 09:00 WBC (5.0-10.0) 10^3/uL RBC (4.2-5.4) 10^6/uL Hgb (12.0-16.0) g/dL Hct (37.0-47.0) % MCV (80-100) fL MCH (27.0-34.0) pg MCHC (33.0-35.0) g/dL Plt Count (150-450) 10^3/uL Neut % (Auto) (42.2-75.2) % Lymph % (Auto) (20.5-50.1) % [place] % (Auto) (2-8) % Eos % (Auto) (1.0-3.0) % Baso % (Auto) (0.0-1.0) % PT (9.0-12.0) SEC INR (0.9-1.2) APTT (22.0-34.0) SEC Sodium 140 (136-145) mmol/L Potassium 4.4 (3.5-5.1) mmol/L Chloride 104 (98-107) mmol/L Carbon Dioxide 25 (21-32) mmol/L Anion Gap 15.4 H (7-13) mEq/L BUN 43 H (7-18) mg/dL Creatinine 1.34 H (0.55-1.02) mg/dL Est Cr Clr Drug Dosing 21.48 Estimated GFR (MDRD) 37 BUN/Creatinine Ratio (No establ ref range) Glucose 130 H (70-99) mg/dL POC Glucose 116 H (70-99) mg/dL Calcium 8.9 (8.5-10.1) mg/dL Total Bilirubin (0.2-1.0) mg/dL AST (15-37) U/L ALT (14-59) U/L Alkaline Phosphatase (46-116) U/L Troponin I High Sens 5755 H* (<=51) pg/mL Total Protein (6.4-8.2) g/dL Albumin (3.4-5.0) g/dL Globulin Albumin/Globulin Ratio SARS-CoV-2 RNA ([facility]OK) Negative (NEGATIVE) 02/12/21 02/12/21 Range/Units 09:00 09:00 WBC 6.9 (5.0-10.0) 10^3/uL RBC 4.31 (4.2-5.4) 10^6/uL Hgb 13.5 (12.0-16.0) g/dL Hct 41.3 (37.0-47.0) % MCV 95.8 (80-100) fL MCH 31.3 (27.0-34.0) pg MCHC 32.7 L (33.0-35.0) g/dL Plt Count 177 (150-450) 10^3/uL Neut % (Auto) 59.0 (42.2-75.2) % Lymph % (Auto) 33.3 (20.5-50.1) % [place] % (Auto) 5.4 (2-8) % Eos % (Auto) 1.9 (1.0-3.0) % Baso % (Auto) 0.4 (0.0-1.0) % PT (9.0-12.0) SEC INR (0.9-1.2) APTT 116.2 H* (22.0-34.0) SEC Sodium (136-145) mmol/L Potassium (3.5-5.1) mmol/L Chloride (98-107) mmol/L Carbon Dioxide (21-32) mmol/L Anion Gap (7-13) mEq/L BUN (7-18) mg/dL Creatinine (0.55-1.02) mg/dL Est Cr Clr Drug Dosing Estimated GFR (MDRD) BUN/Creatinine Ratio (No establ ref range) Glucose (70-99) mg/dL POC Glucose (70-99) mg/dL Calcium (8.5-10.1) mg/dL Total Bilirubin (0.2-1.0) mg/dL AST (15-37) U/L ALT (14-59) U/L Alkaline Phosphatase (46-116) U/L Troponin I High Sens (<=51) pg/mL Total Protein (6.4-8.2) g/dL Albumin (3.4-5.0) g/dL Globulin Albumin/Globulin Ratio SARS-CoV-2 RNA ([facility]) (NEGATIVE) Result Diagrams: 02/12/21 09:00 02/12/21 09:00 Sepsis Event Note - Evaluation Sepsis Screening Result: No Definite Risk - Focused Exam Vital Signs: Vital Signs Temp Pulse Pulse Resp BP BP BP 02/12/21 11:27 97.6 F 55 L 18 97/59 L 02/12/21 08:33 62 128/64 02/12/21 08:32 128/64 02/12/21 08:00 96.9 F 62 16 128/64 02/12/21 05:27 96.6 F L 88 18 135/77 140/73 02/12/21 02:50 96.6 F L 84 18 135/77 140/73 02/12/21 02:27 85 142/74 H 02/12/21 01:25 97 F 91 16 139/66 02/12/21 01:11 96.3 F L 95 23 H 168/82 H Pulse Ox 02/12/21 11:27 98 02/12/21 08:33 02/12/21 08:32 02/12/21 08:00 99 02/12/21 05:27 98 02/12/21 02:50 98 02/12/21 02:27 02/12/21 01:25 98 02/12/21 01:11 97 - Problem List & Annotations (1) Diabetes SNOMED Code(s): 50008832 Code(s): E11.9 - TYPE 2 DIABETES MELLITUS WITHOUT COMPLICATIONS Status: Acute Current Visit: Yes (2) HTN (hypertension) SNOMED Code(s): 97485772 Code(s): I10 - ESSENTIAL (PRIMARY) HYPERTENSION Status: Acute Current Visit: Yes (3) CHF (congestive heart failure) SNOMED Code(s): 63634977 Code(s): I50.9 - HEART FAILURE, UNSPECIFIED Status: Acute Current Visit: No Qualifiers: Heart failure type: unspecified Heart failure chronicity: acute on chronic Qualified Code(s): I50.9 - Heart failure, unspecified (4) NSTEMI (non-ST elevated myocardial infarction) SNOMED Code(s): 78270348 Code(s): I21.4 - NON-ST ELEVATION (NSTEMI) MYOCARDIAL INFARCTION Status: Acute Current Visit: No - Problem List Review Problem List Initiated/Reviewed/Updated: Yes - My Orders Last 24 Hours: My Active Orders 02/12/21 04:59 Telemetry Monitoring [Cardiac Monitoring] [RC] 02/12/21 05:09 Glucose [Blood Glucose Check, Bedside] [RC] QIDACANDBED Dextrose 50% in Water 50 ml IVPUSH Q15M PRN Glucagon,Human Recombinant [GlucaGen] 1 mg IM Q15M PRN 02/12/21 05:27 Oxygen Therapy [RC] PRN Up With Assistance [RC] ASDIRECTED VTE/DVT Education [RC] , Vital Signs [RC] 08,12,16,20,00,04 Acetaminophen [TylenoL] 650 mg PO Q4H PRN Docusate Sodium [Colace] 100 mg PO BID PRN Ibuprofen [Motrin] 600 mg PO Q6H PRN Sodium Chloride 0.9% [Saline Flush] 10 ml FLUSH ASDIRECTED PRN Temazepam [Restoril] 15 mg PO BEDTIME PRN oxyCODONE 5 mg PO Q4H PRN Peripheral IV Insertion Adult [OM.PC] Routine Saline Lock Insert [OM.PC] Routine Sequential Compression Device [OM.PC] Per Unit Routine Resuscitation Status Routine 02/12/21 05:28 Antiembolic Devices [RC] PER UNIT ROUTINE Peripheral IV Care [RC] 02/12/21 Breakfast Regular Diet [DIET] 02/12/21 08:00 Aspirin 325 mg PO WITHBREAKFAST Furosemide [Lasix] 20 mg PO BIDDIURETIC Insulin Lispro [HumaLOG] See Protocol SUBCUT TIDMEALS 02/12/21 09:00 Carbidopa/Levodopa [Sinemet 25-100 mg] 1 tab PO TID Clopidogrel [Plavix] 75 mg PO DAILY Isosorbide Mononitrate [Imdur] 30 mg PO DAILY Metoprolol Tartrate [Lopressor] 25 mg PO BID Spironolactone [Aldactone] 25 mg PO DAILY allopurinoL [Zyloprim] 300 mg PO DAILY glipiZIDE [Glucotrol XL] 10 mg PO DAILY 02/12/21 17:12 aPTT [PTT,PARTIAL THROMBOPLSTIN TIME] [COAG] Routine 02/12/21 21:00 atorvaSTATin [Lipitor] 80 mg PO BEDTIME - Plan Plan:: Acute non st mi with know h/o CAD 12/19/20 had cardiology evaluation by Dr. Santiago - medical management was suggested - not a candidate for further interventional management - guarded prognosis in er received ASA, plavix 300 mg po, lipitor, metoprolol in ER started Heparin wght based nomogram Now troponin is higher but pt is stable called [facility] discussed recent cardiology opinion with pt and called daughter Lorraine [phone] - discussed options of medical management here, transfer to above institutions, discussed the guarded prognosis - the opted not to pursue further cardiology eval, not to transfer to other facility will cont medical management here cont asa, plavix, liptor, metoprolol, imdur plan to transfer to [facility] for cardiology eval when bed available monitor on tele htn treat with metoprolol CKD III, h/o chf with preserved EF cont lasix, spironolactone monitor elytes and renal function Parkinson's dx cont Carbidopa/levodopa DM treat with glipizide supplemental insulin and hypoglycemia protocol as needed dvt prophylaxis full dose heparin would like cpr but no intubation spent more than 45 min - more than 50% of the time was discussion with pt/family/try to arrange transfer/discussion with hospitalist in [place]
[2021-02-12] MEDS: atorvaSTATin 20 MG Tab PO SCH (20:41)
[2021-02-12] MEDS ORDERED: atorvaSTATin 20 MG Tab PO SCH (21:00)
[2021-02-12] MEDS: Docusate Sodium 100 MG Cap PO PRN (23:58)
[2021-02-13 04:29] LABS: ANION GAP 14.1 mEq/L (7-13)
[2021-02-13] MEDS: Docusate Sodium 100 MG Cap PO PRN (05:18)
[2021-02-13] MEDS: Furosemide 20 MG Tab PO SCH ×2 (08:12→13:32)
[2021-02-13] MEDS: Allopurinol 300 MG Tab PO SCH (08:12)
[2021-02-13] MEDS: Isosorbide Mononitrate 30 MG Tab.ER PO SCH (08:12)
[2021-02-13] MEDS: Clopidogrel 75 MG Tab PO SCH (08:12)
[2021-02-13] MEDS: glipiZIDE 5 MG Tab.ER PO SCH (08:12)
[2021-02-13] MEDS: Carbidopa/Levodopa 25-100 MG Tab PO SCH ×3 (08:13→20:22)
[2021-02-13] MEDS: Spironolactone 25 MG Tab PO SCH (08:13)
[2021-02-13] MEDS: Aspirin 325 MG Tab PO SCH (08:13)
[2021-02-13] MEDS: Metoprolol Succinate 25 MG Tab.ER PO SCH (08:13)
[2021-02-13] MEDS: Insulin Lispro 100 Units/ML 3 ML Vial SUBCUT SCH ×3 (08:15→16:49)
--- NOTE | 2021-02-13 12:25 | PCM.PN ---
- General Info Date of Service: 02/13/21 Admission Dx/Problem (Free Text): Admission Diagnosis/Problem Admission Diagnosis/Problem NSTEMI, initial episode of care Subjective Update: since admission the patient remained hemodynamically stable no further chest pain Has remained on heparin drip without obvious bleeding complication No complains of shortness of breath, no cp Functional Status: Reports: Pain Controlled, Tolerating Diet, Ambulating - Review of Systems General: Denies: Fever Pulmonary: Denies: Shortness of Breath Cardiovascular: Denies: Chest Pain, Edema Neurological: Denies: Confusion - Patient Data Vitals - Most Recent: Last Vital Signs Temp 96.3 F L 02/13/21 11:51 Pulse 73 02/13/21 11:51 Resp 16 02/13/21 11:51 BP 124/64 02/13/21 11:51 Pulse Ox 98 02/13/21 11:51 Weight - Most Recent: 125 lb 8 oz I&O - Last 24 Hours: Intake & Output 02/12/21 02/13/21 02/13/21 22:59 06:59 14:59 Intake Total 100 225 Output Total 800 300 Balance -700 -75 Lab Results Last 24 Hours: Laboratory Results - last 24 hr 02/12/21 02/12/21 02/13/21 Range/Units 16:28 18:15 01:30 WBC (5.0-10.0) 10^3/uL RBC (4.2-5.4) 10^6/uL Hgb (12.0-16.0) g/dL Hct (37.0-47.0) % MCV (80-100) fL MCH (27.0-34.0) pg MCHC (33.0-35.0) g/dL Plt Count (150-450) 10^3/uL Neut % (Auto) (42.2-75.2) % Lymph % (Auto) (20.5-50.1) % Coles % (Auto) (2-8) % Eos % (Auto) (1.0-3.0) % Baso % (Auto) (0.0-1.0) % APTT 45.8 H (22.0-34.0) SEC Sodium (136-145) mmol/L Potassium (3.5-5.1) mmol/L Chloride (98-107) mmol/L Carbon Dioxide (21-32) mmol/L Anion Gap (7-13) mEq/L BUN (7-18) mg/dL Creatinine (0.55-1.02) mg/dL Est Cr Clr Drug Dosing mL/min Estimated GFR (MDRD) Glucose (70-99) mg/dL POC Glucose 154 H 81 (70-99) mg/dL Calcium (8.5-10.1) mg/dL Troponin I High Sens (<=51) pg/mL 02/13/21 02/13/21 02/13/21 Range/Units 03:40 03:40 03:40 WBC 6.0 (5.0-10.0) 10^3/uL RBC 3.94 L (4.2-5.4) 10^6/uL Hgb 12.3 (12.0-16.0) g/dL Hct 37.9 (37.0-47.0) % MCV 96.2 (80-100) fL MCH 31.2 (27.0-34.0) pg MCHC 32.5 L (33.0-35.0) g/dL Plt Count 165 (150-450) 10^3/uL Neut % (Auto) 41.9 L (42.2-75.2) % Lymph % (Auto) 48.9 (20.5-50.1) % Coles % (Auto) 6.0 (2-8) % Eos % (Auto) 3.0 (1.0-3.0) % Baso % (Auto) 0.2 (0.0-1.0) % APTT 67.3 H (22.0-34.0) SEC Sodium 139 (136-145) mmol/L Potassium 5.1 (3.5-5.1) mmol/L Chloride 105 (98-107) mmol/L Carbon Dioxide 25 (21-32) mmol/L Anion Gap 14.1 H (7-13) mEq/L BUN 41 H (7-18) mg/dL Creatinine 1.54 H (0.55-1.02) mg/dL Est Cr Clr Drug Dosing 18.69 mL/min Estimated GFR (MDRD) 32 Glucose 66 L (70-99) mg/dL POC Glucose (70-99) mg/dL Calcium 8.3 L (8.5-10.1) mg/dL Troponin I High Sens 4487 H* (<=51) pg/mL 02/13/21 02/13/21 02/13/21 Range/Units 07:52 09:49 11:40 WBC (5.0-10.0) 10^3/uL RBC (4.2-5.4) 10^6/uL Hgb (12.0-16.0) g/dL Hct (37.0-47.0) % MCV (80-100) fL MCH (27.0-34.0) pg MCHC (33.0-35.0) g/dL Plt Count (150-450) 10^3/uL Neut % (Auto) (42.2-75.2) % Lymph % (Auto) (20.5-50.1) % Coles % (Auto) (2-8) % Eos % (Auto) (1.0-3.0) % Baso % (Auto) (0.0-1.0) % APTT 63.4 H (22.0-34.0) SEC Sodium (136-145) mmol/L Potassium (3.5-5.1) mmol/L Chloride (98-107) mmol/L Carbon Dioxide (21-32) mmol/L Anion Gap (7-13) mEq/L BUN (7-18) mg/dL Creatinine (0.55-1.02) mg/dL Est Cr Clr Drug Dosing mL/min Estimated GFR (MDRD) Glucose (70-99) mg/dL POC Glucose 87 143 H (70-99) mg/dL Calcium (8.5-10.1) mg/dL Troponin I High Sens (<=51) pg/mL Med Orders - Current: Current Medications Acetaminophen (Acetaminophen 325 Mg Tab) 650 mg PO Q4H PRN PRN Reason: Pain (Mild 1-3)/fever Allopurinol (Allopurinol 300 Mg Tab) 300 mg PO DAILY [facility] Last Admin: 02/13/21 08:12 Dose: 300 mg Documented by: Aspirin (Aspirin 325 Mg Tab) 325 mg PO WITHBREAKFAST [facility] Last Admin: 02/13/21 08:13 Dose: 325 mg Documented by: Atorvastatin Calcium (Atorvastatin 20 Mg Tab) 80 mg PO BEDTIME [facility] Last Admin: 02/12/21 20:41 Dose: 80 mg Documented by: Carbidopa/Levodopa (Carbidopa/Levodopa 25-100 Mg Tab) 1 tab PO TID [facility] Last Admin: 02/13/21 08:13 Dose: 1 tab Documented by: Clopidogrel Bisulfate (Clopidogrel 75 Mg Tab) 75 mg PO DAILY [facility] Last Admin: 02/13/21 08:12 Dose: 75 mg Documented by: Dextrose/Water (50% Dextrose In Water 50 Ml Syringe) 50 ml IVPUSH Q15M PRN PRN Reason: Hypoglycemia Docusate Sodium (Docusate Sodium 100 Mg Cap) 100 mg PO BID PRN PRN Reason: Constipation Last Admin: 02/13/21 05:18 Dose: 100 mg Documented by: Furosemide (Furosemide 20 Mg Tab) 20 mg PO BIDDIURETIC [facility] Last Admin: 02/13/21 08:12 Dose: 20 mg Documented by: Glipizide (Glipizide 5 Mg Tab.Er) 10 mg PO DAILY [facility] Last Admin: 02/13/21 08:12 Dose: 10 mg Documented by: Glucagon (Glucagon,Human Recombinant 1 Mg Vial) 1 mg IM Q15M PRN PRN Reason: Hypoglycemia Heparin Sodium/Sodium Chloride (Heparin 25,000 Units In 1/2 Ns 500 Ml) 25,000 units in 500 mls @ 14.163 mls/hr IV TITRATE [facility]; Protocol Stop: 02/13/21 23:00 Last Titration: 02/13/21 04:15 Dose: 11 units/kg/hr, 12.983 mls/hr Documented by: Ibuprofen (Ibuprofen 600 Mg Tab) 600 mg PO Q6H PRN PRN Reason: Pain (moderate 4-6) Insulin Human Lispro (Insulin Lispro 100 Units/Ml 3 Ml Vial) 0 unit SUBCUT TIDMEALS [facility]; Protocol Last Admin: 02/13/21 08:15 Dose: Not Given Documented by: Isosorbide Mononitrate (Isosorbide Mononitrate 30 Mg Tab.Er) 30 mg PO DAILY [facility] Last Admin: 02/13/21 08:12 Dose: 30 mg Documented by: Metoprolol Succinate (Metoprolol Succinate 25 Mg Tab.Er) 25 mg PO DAILY [facility] Last Admin: 02/13/21 08:13 Dose: 25 mg Documented by: Oxycodone HCl (Oxycodone 5 Mg Tab) 5 mg PO Q4H PRN PRN Reason: Pain (severe 7-10) Sodium Chloride (Sodium Chloride 0.9% 10 Ml Syringe) 10 ml FLUSH ASDIRECTED PRN PRN Reason: Keep Vein Open Spironolactone (Spironolactone 25 Mg Tab) 25 mg PO DAILY [facility] Last Admin: 02/13/21 08:13 Dose: 25 mg Documented by: Temazepam (Temazepam 15 Mg Cap) 15 mg PO BEDTIME PRN PRN Reason: Sleep Discontinued Medications Aspirin (Aspirin 81 Mg Tab.Chew) 324 mg PO ONETIME ONE Stop: 02/12/21 01:16 Last Admin: 02/12/21 01:25 Dose: Not Given Documented by: Atorvastatin Calcium (Atorvastatin 20 Mg Tab) 80 mg PO ONETIME ONE Stop: 02/12/21 01:19 Last Admin: 02/12/21 01:24 Dose: 80 mg Documented by: Atorvastatin Calcium (Atorvastatin 20 Mg Tab) 40 mg PO BEDTIME [facility] Clopidogrel Bisulfate (Clopidogrel 75 Mg Tab) 300 mg PO ONETIME ONE Stop: 02/12/21 01:16 Last Admin: 02/12/21 01:22 Dose: 300 mg Documented by: Heparin Sodium (Porcine) (Heparin Sodium 5,000 Units/Ml Vial) 4,000 units IVPUSH .BOLUS ONE Stop: 02/12/21 02:11 Last Admin: 02/12/21 02:17 Dose: 4,000 units Documented by: Heparin Sodium (Porcine) (Heparin Sodium 5,000 Units/Ml Vial) 855 units IVPUSH .BOLUS ONE Stop: 02/12/21 21:07 Last Admin: 02/12/21 21:26 Dose: 855 units Documented by: Heparin Sodium/Sodium Chloride (Heparin 25,000 Units In 1/2 Ns 500 Ml) 25,000 units in 500 mls @ 14.163 mls/hr IV TITRATE [facility]; Protocol Stop: 02/13/21 23:00 Metoprolol Tartrate (Metoprolol Tartrate 25 Mg Tab) 25 mg PO ONETIME ONE Stop: 02/12/21 02:13 Last Admin: 02/12/21 02:27 Dose: 25 mg Documented by: Metoprolol Tartrate (Metoprolol Tartrate 25 Mg Tab) 25 mg PO BID [facility] Last Admin: 02/12/21 08:33 Dose: 25 mg Documented by: - Exam General: Alert, Oriented Neck: Supple Lungs: Clear to Auscultation, Normal Respiratory Effort Cardiovascular: Regular Rate, Regular Rhythm GI/Abdominal Exam: Normal Bowel Sounds, Soft, Non-Tender Neurological: No New Focal Deficit Psy/Mental Status: Alert, Normal Affect, Normal Mood - Patient Data Lab Results Last 24 hrs: Laboratory Results - last 24 hr 02/12/21 02/12/21 02/13/21 Range/Units 16:28 18:15 01:30 WBC (5.0-10.0) 10^3/uL RBC (4.2-5.4) 10^6/uL Hgb (12.0-16.0) g/dL Hct (37.0-47.0) % MCV (80-100) fL MCH (27.0-34.0) pg MCHC (33.0-35.0) g/dL Plt Count (150-450) 10^3/uL Neut % (Auto) (42.2-75.2) % Lymph % (Auto) (20.5-50.1) % Coles % (Auto) (2-8) % Eos % (Auto) (1.0-3.0) % Baso % (Auto) (0.0-1.0) % APTT 45.8 H (22.0-34.0) SEC Sodium (136-145) mmol/L Potassium (3.5-5.1) mmol/L Chloride (98-107) mmol/L Carbon Dioxide (21-32) mmol/L Anion Gap (7-13) mEq/L BUN (7-18) mg/dL Creatinine (0.55-1.02) mg/dL Est Cr Clr Drug Dosing mL/min Estimated GFR (MDRD) Glucose (70-99) mg/dL POC Glucose 154 H 81 (70-99) mg/dL Calcium (8.5-10.1) mg/dL Troponin I High Sens (<=51) pg/mL 02/13/21 02/13/21 02/13/21 Range/Units 03:40 03:40 03:40 WBC 6.0 (5.0-10.0) 10^3/uL RBC 3.94 L (4.2-5.4) 10^6/uL Hgb 12.3 (12.0-16.0) g/dL Hct 37.9 (37.0-47.0) % MCV 96.2 (80-100) fL MCH 31.2 (27.0-34.0) pg MCHC 32.5 L (33.0-35.0) g/dL Plt Count 165 (150-450) 10^3/uL Neut % (Auto) 41.9 L (42.2-75.2) % Lymph % (Auto) 48.9 (20.5-50.1) % Coles % (Auto) 6.0 (2-8) % Eos % (Auto) 3.0 (1.0-3.0) % Baso % (Auto) 0.2 (0.0-1.0) % APTT 67.3 H (22.0-34.0) SEC Sodium 139 (136-145) mmol/L Potassium 5.1 (3.5-5.1) mmol/L Chloride 105 (98-107) mmol/L Carbon Dioxide 25 (21-32) mmol/L Anion Gap 14.1 H (7-13) mEq/L BUN 41 H (7-18) mg/dL Creatinine 1.54 H (0.55-1.02) mg/dL Est Cr Clr Drug Dosing 18.69 mL/min Estimated GFR (MDRD) 32 Glucose 66 L (70-99) mg/dL POC Glucose (70-99) mg/dL Calcium 8.3 L (8.5-10.1) mg/dL Troponin I High Sens 4487 H* (<=51) pg/mL 02/13/21 02/13/21 02/13/21 Range/Units 07:52 09:49 11:40 WBC (5.0-10.0) 10^3/uL RBC (4.2-5.4) 10^6/uL Hgb (12.0-16.0) g/dL Hct (37.0-47.0) % MCV (80-100) fL MCH (27.0-34.0) pg MCHC (33.0-35.0) g/dL Plt Count (150-450) 10^3/uL Neut % (Auto) (42.2-75.2) % Lymph % (Auto) (20.5-50.1) % Coles % (Auto) (2-8) % Eos % (Auto) (1.0-3.0) % Baso % (Auto) (0.0-1.0) % APTT 63.4 H (22.0-34.0) SEC Sodium (136-145) mmol/L Potassium (3.5-5.1) mmol/L Chloride (98-107) mmol/L Carbon Dioxide (21-32) mmol/L Anion Gap (7-13) mEq/L BUN (7-18) mg/dL Creatinine (0.55-1.02) mg/dL Est Cr Clr Drug Dosing mL/min Estimated GFR (MDRD) Glucose (70-99) mg/dL POC Glucose 87 143 H (70-99) mg/dL Calcium (8.5-10.1) mg/dL Troponin I High Sens (<=51) pg/mL Result Diagrams: 02/13/21 03:40 02/13/21 03:40 Sepsis Event Note - Evaluation Sepsis Screening Result: No Definite Risk - Focused Exam Vital Signs: Vital Signs Temp Pulse Pulse Resp BP BP Pulse Ox 02/13/21 11:51 96.3 F L 73 16 124/64 98 02/13/21 08:13 74 127/57 L 02/13/21 08:12 127/57 L 02/13/21 08:00 96.5 F L 74 20 127/57 L 98 02/13/21 04:00 97.0 F 73 18 128/74 97 - Problem List & Annotations (1) Diabetes SNOMED Code(s): 12913888 Code(s): E11.9 - TYPE 2 DIABETES MELLITUS WITHOUT COMPLICATIONS Status: Acute Current Visit: Yes (2) HTN (hypertension) SNOMED Code(s): 43486659 Code(s): I10 - ESSENTIAL (PRIMARY) HYPERTENSION Status: Acute Current Visit: Yes (3) CHF (congestive heart failure) SNOMED Code(s): 49957984 Code(s): I50.9 - HEART FAILURE, UNSPECIFIED Status: Acute Current Visit: No Qualifiers: Heart failure type: unspecified Heart failure chronicity: acute on chronic Qualified Code(s): I50.9 - Heart failure, unspecified (4) NSTEMI (non-ST elevated myocardial infarction) SNOMED Code(s): 10857559 Code(s): I21.4 - NON-ST ELEVATION (NSTEMI) MYOCARDIAL INFARCTION Status: Acute Current Visit: No - Problem List Review Problem List Initiated/Reviewed/Updated: Yes - My Orders Last 24 Hours: My Active Orders 02/12/21 21:00 atorvaSTATin [Lipitor] 80 mg PO BEDTIME 02/13/21 09:00 Metoprolol Succinate [Toprol XL] 25 mg PO DAILY - Plan Plan:: Acute non st mi with know h/o CAD 12/19/20 had cardiology evaluation by Dr. Santiago - medical management was suggested - not a candidate for further interventional management - guarded prognosis in er received ASA, plavix 300 mg po, lipitor, metoprolol in ER started Heparin wght based nomogram decision was medical management Now troponin is decreasing pt is stable, CP free will cont medical management here cont asa, plavix, liptor, metoprolol, imdur will need out pt cardiology f/up out pt echo continue to monitor on tele stop heparin drip after about 48h - later tonight htn treat with metoprolol CKD III, h/o chf with preserved EF cont lasix, spironolactone monitor elytes and renal function Parkinson's dx cont Carbidopa/levodopa DM treat with glipizide supplemental insulin and hypoglycemia protocol as needed dvt prophylaxis full dose heparin plan for discharge in AM if remains stable would like cpr but no intubation
[2021-02-13] MEDS: Heparin Sodium/0.45% NaCl 25,000 UNITS/500 ML BAG IV SCH (20:22)
[2021-02-13] MEDS: atorvaSTATin 20 MG Tab PO SCH (20:22)
[2021-02-14] MEDS: Insulin Lispro 100 Units/ML 3 ML Vial SUBCUT SCH ×3 (08:09→17:17)
[2021-02-14] MEDS: Aspirin 325 MG Tab PO SCH (08:23)
[2021-02-14] MEDS: Clopidogrel 75 MG Tab PO SCH (08:23)
[2021-02-14] MEDS: Spironolactone 25 MG Tab PO SCH (08:23)
[2021-02-14] MEDS: Allopurinol 300 MG Tab PO SCH (08:24)
[2021-02-14] MEDS: Metoprolol Succinate 25 MG Tab.ER PO SCH (08:24)
[2021-02-14] MEDS: Furosemide 20 MG Tab PO SCH ×2 (08:24→13:47)
[2021-02-14] MEDS: Isosorbide Mononitrate 30 MG Tab.ER PO SCH (08:24)
[2021-02-14] MEDS: Carbidopa/Levodopa 25-100 MG Tab PO SCH ×3 (08:25→21:02)
[2021-02-14] MEDS: glipiZIDE 5 MG Tab.ER PO SCH (08:25)
[2021-02-14] MEDS: Nitroglycerin 0.4 MG Tab.SL SL PRN ×4 (09:24→19:49)
[2021-02-14] MEDS ORDERED: Spironolactone 25 MG Tab PO SCH (10:03)
--- NOTE | 2021-02-14 11:36 | PCM.PN ---
- General Info Date of Service: 02/14/21 Admission Dx/Problem (Free Text): Admission Diagnosis/Problem Admission Diagnosis/Problem NSTEMI, initial episode of care Subjective Update: since admission the patient remained hemodynamically stable no further chest pain until this morning Has remained on heparin drip without obvious bleeding complication - this was discontinued after about 48 last evening No complains of shortness of breath, no cp during rounding we talked about going home today, pending pt/ot opinion d/w sw - [place] used to stay [place] but recently decided to leave - lives with in a camper at a campground 10 min following rounding she called and was c/o left sided arm pain, chest pain, sob vitals were stable obtained URGENT EKG - LBBB Given 2 SL NITRO - CP resolved Functional Status: Reports: Tolerating Diet - Review of Systems General: Reports: Weakness Pulmonary: Reports: Shortness of Breath (acute episode this AM) Cardiovascular: Reports: Chest Pain (resolved with sl nitro) Gastrointestinal: Denies: Abdominal Pain Genitourinary: Denies: Dysuria Neurological: Denies: Confusion - Patient Data Vitals - Most Recent: Last Vital Signs Temp 98 F 02/14/21 07:52 Pulse 100 02/14/21 09:18 Resp 20 02/14/21 07:52 BP 128/84 02/14/21 09:35 Pulse Ox 97 02/14/21 09:18 Weight - Most Recent: 125 lb 8 oz I&O - Last 24 Hours: Intake & Output 02/13/21 02/14/21 02/14/21 22:59 06:59 14:59 Intake Total 350 100 Balance 350 100 Lab Results Last 24 Hours: Laboratory Results - last 24 hr 02/13/21 02/13/21 02/13/21 Range/Units 11:40 16:28 21:24 POC Glucose 143 H 148 H 140 H (70-99) mg/dL 02/14/21 Range/Units 08:04 POC Glucose 74 (70-99) mg/dL Med Orders - Current: Current Medications Acetaminophen (Acetaminophen 325 Mg Tab) 650 mg PO Q4H PRN PRN Reason: Pain (Mild 1-3)/fever Allopurinol (Allopurinol 100 Mg Tab) 50 mg PO Q48H [facility] Aspirin (Aspirin 325 Mg Tab) 325 mg PO WITHBREAKFAST [facility] Last Admin: 02/14/21 08:23 Dose: 325 mg Documented by: Atorvastatin Calcium (Atorvastatin 20 Mg Tab) 80 mg PO BEDTIME [facility] Last Admin: 02/13/21 20:22 Dose: 80 mg Documented by: Carbidopa/Levodopa (Carbidopa/Levodopa 25-100 Mg Tab) 1 tab PO TID [facility] Last Admin: 02/14/21 08:25 Dose: 1 tab Documented by: Clopidogrel Bisulfate (Clopidogrel 75 Mg Tab) 75 mg PO DAILY [facility] Last Admin: 02/14/21 08:23 Dose: 75 mg Documented by: Dextrose/Water (50% Dextrose In Water 50 Ml Syringe) 50 ml IVPUSH Q15M PRN PRN Reason: Hypoglycemia Docusate Sodium (Docusate Sodium 100 Mg Cap) 100 mg PO BID PRN PRN Reason: Constipation Last Admin: 02/13/21 05:18 Dose: 100 mg Documented by: Furosemide (Furosemide 20 Mg Tab) 20 mg PO BIDDIURETIC [facility] Last Admin: 02/14/21 08:24 Dose: 20 mg Documented by: Glipizide (Glipizide 5 Mg Tab.Er) 2.5 mg PO DAILY [facility] Glucagon (Glucagon,Human Recombinant 1 Mg Vial) 1 mg IM Q15M PRN PRN Reason: Hypoglycemia Heparin Sodium (Porcine) (Heparin Sodium 5,000 Units/Ml Vial) 5,000 units SUBC UT Q8HR [facility] Insulin Human Lispro (Insulin Lispro 100 Units/Ml 3 Ml Vial) 0 unit SUBCUT TIDMEALS [facility]; Protocol Last Admin: 02/14/21 08:09 Dose: Not Given Documented by: Isosorbide Mononitrate (Isosorbide Mononitrate 30 Mg Tab.Er) 45 mg PO DAILY [facility] Metoprolol Succinate (Metoprolol Succinate 25 Mg Tab.Er) 25 mg PO DAILY [facility] Last Admin: 02/14/21 08:24 Dose: 25 mg Documented by: Nitroglycerin (Nitroglycerin 0.4 Mg Tab.Sl) 0.4 mg SL Q5M PRN PRN Reason: Chest Pain Last Admin: 02/14/21 09:35 Dose: 0.4 mg Documented by: Oxycodone HCl (Oxycodone 5 Mg Tab) 5 mg PO Q4H PRN PRN Reason: Pain (severe 7-10) Sodium Chloride (Sodium Chloride 0.9% 10 Ml Syringe) 10 ml FLUSH ASDIRECTED PRN PRN Reason: Keep Vein Open Spironolactone (Spironolactone 25 Mg Tab) 12.5 mg PO DAILY [facility] Temazepam (Temazepam 15 Mg Cap) 15 mg PO BEDTIME PRN PRN Reason: Sleep Discontinued Medications Allopurinol (Allopurinol 300 Mg Tab) 300 mg PO DAILY [facility] Last Admin: 02/14/21 08:24 Dose: 300 mg Documented by: Aspirin (Aspirin 81 Mg Tab.Chew) 324 mg PO ONETIME ONE Stop: 02/12/21 01:16 Last Admin: 02/12/21 01:25 Dose: Not Given Documented by: Atorvastatin Calcium (Atorvastatin 20 Mg Tab) 80 mg PO ONETIME ONE Stop: 02/12/21 01:19 Last Admin: 02/12/21 01:24 Dose: 80 mg Documented by: Atorvastatin Calcium (Atorvastatin 20 Mg Tab) 40 mg PO BEDTIME [facility] Clopidogrel Bisulfate (Clopidogrel 75 Mg Tab) 300 mg PO ONETIME ONE Stop: 02/12/21 01:16 Last Admin: 02/12/21 01:22 Dose: 300 mg Documented by: Glipizide (Glipizide 5 Mg Tab.Er) 10 mg PO DAILY [facility] Last Admin: 02/14/21 08:25 Dose: 10 mg Documented by: Heparin Sodium (Porcine) (Heparin Sodium 5,000 Units/Ml Vial) 4,000 units IVPUSH .BOLUS ONE Stop: 02/12/21 02:11 Last Admin: 02/12/21 02:17 Dose: 4,000 units Documented by: Heparin Sodium (Porcine) (Heparin Sodium 5,000 Units/Ml Vial) 855 units IVPUSH .BOLUS ONE Stop: 02/12/21 21:07 Last Admin: 02/12/21 21:26 Dose: 855 units Documented by: Heparin Sodium/Sodium Chloride (Heparin 25,000 Units In 1/2 Ns 500 Ml) 25,000 units in 500 mls @ 14.163 mls/hr IV TITRATE [facility]; Protocol Stop: 02/13/21 23:00 Last Admin: 02/13/21 20:22 Dose: 11 units/kg/hr, 12.983 mls/hr Documented by: Heparin Sodium/Sodium Chloride (Heparin 25,000 Units In 1/2 Ns 500 Ml) 25,000 units in 500 mls @ 14.163 mls/hr IV TITRATE [facility]; Protocol Stop: 02/13/21 23:00 Ibuprofen (Ibuprofen 600 Mg Tab) 600 mg PO Q6H PRN PRN Reason: Pain (moderate 4-6) Isosorbide Mononitrate (Isosorbide Mononitrate 30 Mg Tab.Er) 30 mg PO DAILY [facility] Last Admin: 02/14/21 08:24 Dose: 30 mg Documented by: Metoprolol Tartrate (Metoprolol Tartrate 25 Mg Tab) 25 mg PO ONETIME ONE Stop: 02/12/21 02:13 Last Admin: 02/12/21 02:27 Dose: 25 mg Documented by: Metoprolol Tartrate (Metoprolol Tartrate 25 Mg Tab) 25 mg PO BID [facility] Last Admin: 02/12/21 08:33 Dose: 25 mg Documented by: Spironolactone (Spironolactone 25 Mg Tab) 25 mg PO DAILY [facility] Last Admin: 02/14/21 08:23 Dose: 25 mg Documented by: Spironolactone (Spironolactone 25 Mg Tab) 12.5 mg PO DAILY [facility]END[facility] - Exam General: Alert, Oriented Lungs: Clear to Auscultation, Normal Respiratory Effort Cardiovascular: Regular Rate, Regular Rhythm GI/Abdominal Exam: Normal Bowel Sounds, Soft, Non-Tender Extremities: No Pedal Edema Skin: Warm Neurological: No New Focal Deficit Psy/Mental Status: Alert, Normal Affect, Normal Mood #1 Interpretation EKG Date: 02/14/21 Rhythm: NSR QRS: LBBB - Patient Data Lab Results Last 24 hrs: Laboratory Results - last 24 hr 02/13/21 02/13/21 02/13/21 Range/Units 11:40 16:28 21:24 POC Glucose 143 H 148 H 140 H (70-99) mg/dL 02/14/21 Range/Units 08:04 POC Glucose 74 (70-99) mg/dL Result Diagrams: 02/13/21 03:40 02/13/21 03:40 Sepsis Event Note - Evaluation Sepsis Screening Result: No Definite Risk - Focused Exam Vital Signs: Vital Signs Temp Pulse Pulse Resp BP BP BP 02/14/21 09:35 128/84 02/14/21 09:24 167/99 H 02/14/21 09:18 100 147/92 H 02/14/21 08:24 71 117/71 02/14/21 07:52 98 F 71 20 117/71 02/14/21 05:00 02/14/21 04:00 97.3 F 63 16 127/56 L Pulse Ox Pulse Ox 02/14/21 09:35 02/14/21 09:24 02/14/21 09:18 97 02/14/21 08:24 02/14/21 07:52 97 02/14/21 05:00 97 02/14/21 04:00 97 - Problem List & Annotations (1) Diabetes SNOMED Code(s): 65514574 Code(s): E11.9 - TYPE 2 DIABETES MELLITUS WITHOUT COMPLICATIONS Status: Acute Current Visit: Yes (2) HTN (hypertension) SNOMED Code(s): 80275111 Code(s): I10 - ESSENTIAL (PRIMARY) HYPERTENSION Status: Acute Current Visit: Yes (3) CHF (congestive heart failure) SNOMED Code(s): 60629524 Code(s): I50.9 - HEART FAILURE, UNSPECIFIED Status: Acute Current Visit: No Qualifiers: Heart failure type: unspecified Heart failure chronicity: acute on chronic Qualified Code(s): I50.9 - Heart failure, unspecified (4) NSTEMI (non-ST elevated myocardial infarction) SNOMED Code(s): 92296714 Code(s): I21.4 - NON-ST ELEVATION (NSTEMI) MYOCARDIAL INFARCTION Status: Acute Current Visit: No - Problem List Review Problem List Initiated/Reviewed/Updated: Yes - My Orders Last 24 Hours: My Active Orders 02/14/21 09:34 Nitroglycerin [Nitrostat] 0.4 mg SL Q5M PRN 02/14/21 11:29 OT Evaluation and Treatment [CONS] Routine PT Evaluation and Treatment [CONS] Routine 02/14/21 14:00 Heparin Sodium 5,000 units SUBCUT Q8HR 02/15/21 05:15 BASIC METABOLIC PANEL,BMP [CHEM] AM CBC WITH AUTO DIFF [HEME] AM 02/15/21 09:00 Isosorbide Mononitrate [Imdur] 45 mg PO DAILY Spironolactone [Aldactone] 12.5 mg PO DAILY glipiZIDE [Glucotrol XL] 2.5 mg PO DAILY 02/16/21 09:00 allopurinoL [Zyloprim] 50 mg PO Q48H - Plan Plan:: Acute non st mi with know h/o CAD 12/19/20 had cardiology evaluation by Dr. Santiago - medical management was suggested - not a candidate for further interventional management - guarded prognosis in er received ASA, plavix 300 mg po, lipitor, metoprolol in ER was on Heparin wght based nomogram for about 48 h- had no recurrence until this morning - anxiety about discharge might have played a role resolved episode with sl ntg will increase imdur will cont medical management here cont asa, plavix, liptor, metoprolol, imdur will need out pt cardiology f/up out pt echo continue to monitor on tele htn treat with metoprolol follow with increased imdur CKD III, h/o chf with preserved EF cont lasix, spironolactone monitor elytes and renal function Parkinson's dx cont Carbidopa/levodopa DM treat with glipizide supplemental insulin and hypoglycemia protocol as needed dvt prophylaxis start heparin hold discharge in view of new cp d/w s/w plan for discharge home with home care would like cpr but no intubation
[2021-02-14] MEDS: Heparin Sodium 5,000 Units/ML Vial SUBCUT SCH ×2 (13:47→21:40)
[2021-02-14] MEDS: atorvaSTATin 20 MG Tab PO SCH (21:02)
[2021-02-15] MEDS: Heparin Sodium 5,000 Units/ML Vial SUBCUT SCH ×2 (06:01→13:54)
[2021-02-15 06:59] LABS: ANION GAP 12.6 mEq/L (7-13)
[2021-02-15] MEDS: Insulin Lispro 100 Units/ML 3 ML Vial SUBCUT SCH ×2 (08:06→12:23)
[2021-02-15] MEDS: Aspirin 325 MG Tab PO SCH (08:29)
[2021-02-15] MEDS: Furosemide 20 MG Tab PO SCH ×2 (08:30→13:37)
[2021-02-15] MEDS: Clopidogrel 75 MG Tab PO SCH (08:33)
[2021-02-15] MEDS: Carbidopa/Levodopa 25-100 MG Tab PO SCH ×2 (08:33→13:37)
[2021-02-15] MEDS: Metoprolol Succinate 25 MG Tab.ER PO SCH (08:34)
[2021-02-15] MEDS: Docusate Sodium 100 MG Cap PO PRN (08:46)
[2021-02-15] MEDS ORDERED: Isosorbide Mononitrate 60 MG Tab.ER PO SCH (09:00)
[2021-02-15] MEDS ORDERED: Spironolactone 25 MG Tab PO SCH (09:00)
[2021-02-15] MEDS ORDERED: glipiZIDE 5 MG Tab.ER PO SCH (09:00)
[2021-02-15] MEDS ORDERED: Nitroglycerin 0.4 MG Tab.SL SL PRN (09:56)
--- NOTE | 2021-02-15 10:29 | PCM.DCSUM1 ---
Discharge Summary - Hospital Course Free Text/Narrative:: extensive h/o CAD, pesented with cp, noted elevated troponins Acute non st mi with know h/o CAD 12/19/20 had cardiology evaluation by Dr. Santiago - medical management was suggested - not a candidate for further interventional management - guarded prognosis in er received ASA, plavix 300 mg po, lipitor, metoprolol in ER was on Heparin wght based nomogram for about 48 h will increase imdur cont asa, plavix, liptor, metoprolol, will need out pt cardiology f/up suggest out pt echo continue to monitor on tele htn treat with metoprolol follow with increased imdur CKD III, h/o chf with preserved EF cont lasix, spironolactone monitor elytes and renal function Parkinson's dx cont Carbidopa/levodopa DM treat with glipizide - adjusted dose for CKD III supplemental insulin and hypoglycemia protocol as needed dvt prophylaxis start heparin will benefit from home care nursing home for education and monitorng of disease process - CAD, angina pt for strengthening, conditioning in the setting of significant CAD ot for ADLS training, home safety eval - lives in [facility], [place] Diagnosis: Stroke: No - Discharge Data Discharge Date: 02/15/21 Discharge Disposition: Home, Self-Care 01 Condition: Good - Referral to Home Health Primary Care Physician: PCP None - Discharge Diagnosis/Problem(s) (1) Diabetes SNOMED Code(s): 09546480 ICD Code: E11.9 - TYPE 2 DIABETES MELLITUS WITHOUT COMPLICATIONS Status: Acute Current Visit: Yes (2) HTN (hypertension) SNOMED Code(s): 53154484 ICD Code: I10 - ESSENTIAL (PRIMARY) HYPERTENSION Status: Acute Current Visit: Yes (3) CHF (congestive heart failure) SNOMED Code(s): 74742962 ICD Code: I50.9 - HEART FAILURE, UNSPECIFIED Status: Acute Current Visit: No Qualifiers: Heart failure type: unspecified Heart failure chronicity: acute on chronic Qualified Code(s): I50.9 - Heart failure, unspecified (4) NSTEMI (non-ST elevated myocardial infarction) SNOMED Code(s): 08510878 ICD Code: I21.4 - NON-ST ELEVATION (NSTEMI) MYOCARDIAL INFARCTION Status: Acute Current Visit: No - Patient Summary/Data Consults: Consultations 02/14/21 11:29 OT Evaluation and Treatment [CONS] Routine PT Evaluation and Treatment [CONS] Routine - Patient Instructions Diet: Heart Healthy Diet Activity: As Tolerated - Discharge Plan *PRESCRIPTION DRUG MONITORING PROGRAM REVIEWED*: Not Applicable *COPY OF PRESCRIPTION DRUG MONITORING REPORT IN PATIENT ZOHRA: Not Applicable Prescriptions/Med Rec: glipiZIDE [Glucotrol XL] 2.5 mg PO DAILY #30 tab.er Isosorbide Mononitrate [Imdur] 60 mg PO DAILY #30 tab.er Home Medications: Home Meds atorvaSTATin Calcium [Lipitor] 80 mg PO DAILY 02/01/18 [History] Metoprolol Tartrate 25 mg PO DAILY 10/20/20 [History] Aspirin [Halfprin] 81 mg PO DAILY tab.ec 10/29/20 [Rx] Carbidopa/Levodopa [Carbidopa-Levodopa 25-100] 1 tab PO TID 10/29/20 [History] Clopidogrel [Plavix] 75 mg PO DAILY tablet 10/29/20 [Rx] Furosemide 20 mg PO BID 02/12/21 [History] Nitroglycerin [Nitrostat] 1 tab PO ASDIRECTED 02/12/21 [History] Spironolactone [Aldactone] 25 mg PO DAILY 02/12/21 [History] Isosorbide Mononitrate [Imdur] 60 mg PO DAILY #30 tab.er 02/15/21 [Rx] glipiZIDE [Glucotrol XL] 2.5 mg PO DAILY #30 tab.er 02/15/21 [Rx] Patient Handouts: Aspirin and Your Heart, Heart Attack, [id number], Nitroglycerin sublingual tablets, Angina, [id number] Referrals: Lois Hill NP [Ordering Only Provider] - Nikita Masters NP [Physician] - - Discharge Summary/Plan Comment DC Time >30 min.: Yes Total # of Minutes for Discharge Time: 40 min, discuss with sw, filled out home care referral - General Info Date of Service: 02/15/21 Admission Dx/Problem (Free Text: Admission Diagnosis/Problem Admission Diagnosis/Problem NSTEMI, initial episode of care Subjective Update: no cp since yesterday morning no sob feels ready to go home plan to stay in [facility], [place] for 1 mo then go to [facility] Functional Status: Reports: Pain Controlled, Tolerating Diet - Review of Systems General: Denies: Fever Pulmonary: Denies: Shortness of Breath Cardiovascular: Denies: Chest Pain, Edema Gastrointestinal: Denies: Abdominal Pain Psychiatric: Denies: Confusion - Patient Data Vitals - Most Recent: Last Vital Signs Temp 95.5 F L 02/15/21 07:33 Pulse 68 02/15/21 08:34 Resp 22 H 02/15/21 07:33 BP 135/75 02/15/21 08:34 Pulse Ox 98 02/15/21 07:33 Weight - Most Recent: 125 lb 8 oz I&O - Last 24 hours: Intake & Output 02/14/21 02/15/21 02/15/21 22:59 06:59 14:59 Intake Total 300 100 Output Total 300 250 Balance 0 -150 Lab Results - Last 24 hrs: Laboratory Results - last 24 hr 02/14/21 02/14/21 02/14/21 Range/Units 11:59 16:53 20:38 WBC (5.0-10.0) 10^3/uL RBC (4.2-5.4) 10^6/uL Hgb (12.0-16.0) g/dL Hct (37.0-47.0) % MCV (80-100) fL MCH (27.0-34.0) pg MCHC (33.0-35.0) g/dL Plt Count (150-450) 10^3/uL Neut % (Auto) (42.2-75.2) % Lymph % (Auto) (20.5-50.1) % [place] % (Auto) (2-8) % Eos % (Auto) (1.0-3.0) % Baso % (Auto) (0.0-1.0) % Sodium (136-145) mmol/L Potassium (3.5-5.1) mmol/L Chloride (98-107) mmol/L Carbon Dioxide (21-32) mmol/L Anion Gap (7-13) mEq/L BUN (7-18) mg/dL Creatinine (0.55-1.02) mg/dL Est Cr Clr Drug Dosing mL/min Estimated GFR (MDRD) Glucose (70-99) mg/dL POC Glucose 178 H 149 H 222 H (70-99) mg/dL Calcium (8.5-10.1) mg/dL 08/31/21 08/31/21 08/31/21 Range/Units 06:10 06:10 07:38 WBC 5.9 (5.0-10.0) 10^3/uL RBC 3.97 L (4.2-5.4) 10^6/uL Hgb 12.3 (12.0-16.0) g/dL Hct 38.2 (37.0-47.0) % MCV 96.2 (80-100) fL MCH 31.0 (27.0-34.0) pg MCHC 32.2 L (33.0-35.0) g/dL Plt Count 168 (150-450) 10^3/uL Neut % (Auto) 48.4 (42.2-75.2) % Lymph % (Auto) 42.3 (20.5-50.1) % [place] % (Auto) 6.6 (2-8) % Eos % (Auto) 2.4 (1.0-3.0) % Baso % (Auto) 0.3 (0.0-1.0) % Sodium 139 (136-145) mmol/L Potassium 4.6 (3.5-5.1) mmol/L Chloride 105 (98-107) mmol/L Carbon Dioxide 26 (21-32) mmol/L Anion Gap 12.6 (7-13) mEq/L BUN 41 H (7-18) mg/dL Creatinine 1.68 H (0.55-1.02) mg/dL Est Cr Clr Drug Dosing 17.13 mL/min Estimated GFR (MDRD) 29 Glucose 106 H (70-99) mg/dL POC Glucose 89 (70-99) mg/dL Calcium 8.7 (8.5-10.1) mg/dL Med Orders - Current: Current Medications Acetaminophen (Acetaminophen 325 Mg Tab) 650 mg PO Q4H PRN PRN Reason: Pain (Mild 1-3)/fever Allopurinol (Allopurinol 100 Mg Tab) 50 mg PO Q48H BENJAMÍN Aspirin (Aspirin 325 Mg Tab) 325 mg PO WITHBREAKFAST [facility] Last Admin: 02/15/21 08:29 Dose: 325 mg Documented by: Atorvastatin Calcium (Atorvastatin 20 Mg Tab) 80 mg PO BEDTIME BENJAMÍN Last Admin: 02/14/21 21:02 Dose: 80 mg Documented by: Carbidopa/Levodopa (Carbidopa/Levodopa 25-100 Mg Tab) 1 tab PO TID [facility] Last Admin: 02/15/21 08:33 Dose: 1 tab Documented by: Clopidogrel Bisulfate (Clopidogrel 75 Mg Tab) 75 mg PO DAILY [facility] Last Admin: 02/15/21 08:33 Dose: 75 mg Documented by: Dextrose/Water (50% Dextrose In Water 50 Ml Syringe) 50 ml IVPUSH Q15M PRN PRN Reason: Hypoglycemia Docusate Sodium (Docusate Sodium 100 Mg Cap) 100 mg PO BID PRN PRN Reason: Constipation Last Admin: 02/15/21 08:46 Dose: 100 mg Documented by: Furosemide (Furosemide 20 Mg Tab) 20 mg PO BIDDIURETIC [facility] Last Admin: 02/15/21 08:30 Dose: 20 mg Documented by: Glipizide (Glipizide 5 Mg Tab.Er) 2.5 mg PO DAILY [facility] Last Admin: 02/15/21 08:31 Dose: 2.5 mg Documented by: Glucagon (Glucagon,Human Recombinant 1 Mg Vial) 1 mg IM Q15M PRN PRN Reason: Hypoglycemia Heparin Sodium (Porcine) (Heparin Sodium 5,000 Units/Ml Vial) 5,000 units LEAHY BCUT Q8HR [facility] Last Admin: 02/15/21 06:01 Dose: Not Given Documented by: Insulin Human Lispro (Insulin Lispro 100 Units/Ml 3 Ml Vial) 0 unit SUBCUT TIDMEALS [facility]; Protocol Last Admin: 02/15/21 08:06 Dose: Not Given Documented by: Isosorbide Mononitrate (Isosorbide Mononitrate 60 Mg Tab.Er) 60 mg PO DAILY [facility] Last Admin: 02/15/21 08:33 Dose: 60 mg Documented by: Metoprolol Succinate (Metoprolol Succinate 25 Mg Tab.Er) 25 mg PO DAILY [facility] Last Admin: 02/15/21 08:34 Dose: 25 mg Documented by: Nitroglycerin (Nitroglycerin 0.4 Mg Tab.Sl) 0.4 mg SL Q5M PRN PRN Reason: Chest Pain Oxycodone HCl (Oxycodone 5 Mg Tab) 5 mg PO Q4H PRN PRN Reason: Pain (severe 7-10) Sodium Chloride (Sodium Chloride 0.9% 10 Ml Syringe) 10 ml FLUSH ASDIRECTED PRN PRN Reason: Keep Vein Open Spironolactone (Spironolactone 25 Mg Tab) 12.5 mg PO DAILY [facility] Last Admin: 02/15/21 08:31 Dose: 12.5 mg Documented by: Temazepam (Temazepam 15 Mg Cap) 15 mg PO BEDTIME PRN PRN Reason: Sleep Discontinued Medications Allopurinol (Allopurinol 300 Mg Tab) 300 mg PO DAILY [facility] Last Admin: 02/14/21 08:24 Dose: 300 mg Documented by: Aspirin (Aspirin 81 Mg Tab.Chew) 324 mg PO ONETIME ONE Stop: 02/12/21 01:16 Last Admin: 02/12/21 01:25 Dose: Not Given Documented by: Atorvastatin Calcium (Atorvastatin 20 Mg Tab) 80 mg PO ONETIME ONE Stop: 02/12/21 01:19 Last Admin: 02/12/21 01:24 Dose: 80 mg Documented by: Atorvastatin Calcium (Atorvastatin 20 Mg Tab) 40 mg PO BEDTIME [facility] Clopidogrel Bisulfate (Clopidogrel 75 Mg Tab) 300 mg PO ONETIME ONE Stop: 02/12/21 01:16 Last Admin: 02/12/21 01:22 Dose: 300 mg Documented by: Glipizide (Glipizide 5 Mg Tab.Er) 10 mg PO DAILY [facility] Last Admin: 02/14/21 08:25 Dose: 10 mg Documented by: Heparin Sodium (Porcine) (Heparin Sodium 5,000 Units/Ml Vial) 4,000 units IVPUSH .BOLUS ONE Stop: 02/12/21 02:11 Last Admin: 02/12/21 02:17 Dose: 4,000 units Documented by: Heparin Sodium (Porcine) (Heparin Sodium 5,000 Units/Ml Vial) 855 units IVPUSH .BOLUS ONE Stop: 02/12/21 21:07 Last Admin: 02/12/21 21:26 Dose: 855 units Documented by: Heparin Sodium/Sodium Chloride (Heparin 25,000 Units In 1/2 Ns 500 Ml) 25,000 units in 500 mls @ 14.163 mls/hr IV TITRATE [facility]; Protocol Stop: 02/13/21 23:00 Last Admin: 02/13/21 20:22 Dose: 11 units/kg/hr, 12.983 mls/hr Documented by: Heparin Sodium/Sodium Chloride (Heparin 25,000 Units In 1/2 Ns 500 Ml) 25,000 units in 500 mls @ 14.163 mls/hr IV TITRATE [facility]; Protocol Stop: 02/13/21 23:00 Ibuprofen (Ibuprofen 600 Mg Tab) 600 mg PO Q6H PRN PRN Reason: Pain (moderate 4-6) Isosorbide Mononitrate (Isosorbide Mononitrate 30 Mg Tab.Er) 30 mg PO DAILY [facility] Last Admin: 02/14/21 08:24 Dose: 30 mg Documented by: Metoprolol Tartrate (Metoprolol Tartrate 25 Mg Tab) 25 mg PO ONETIME ONE Stop: 02/12/21 02:13 Last Admin: 02/12/21 02:27 Dose: 25 mg Documented by: Metoprolol Tartrate (Metoprolol Tartrate 25 Mg Tab) 25 mg PO BID [facility] Last Admin: 02/12/21 08:33 Dose: 25 mg Documented by: Nitroglycerin (Nitroglycerin 0.4 Mg Tab.Sl) 0.4 mg SL Q5M PRN PRN Reason: Chest Pain Last Admin: 02/14/21 19:49 Dose: 0.4 mg Documented by: Spironolactone (Spironolactone 25 Mg Tab) 25 mg PO DAILY [facility] Last Admin: 02/14/21 08:23 Dose: 25 mg Documented by: Spironolactone (Spironolactone 25 Mg Tab) 12.5 mg PO DAILY [facility] - Exam General: Reports: Alert, Oriented Neck: Reports: Supple Lungs: Reports: Clear to Auscultation, Normal Respiratory Effort Cardiovascular: Reports: Regular Rate, Regular Rhythm GI/Abdominal Exam: Normal Bowel Sounds, Soft, Non-Tender Skin: Reports: Warm, Dry Neurological: Reports: No New Focal Deficit Psy/Mental Status: Reports: Alert, Normal Affect, Normal Mood
[2021-02-15 12:24] VITALS: BP 115/73; PULSE 66
[2021-02-16] MEDS ORDERED: Allopurinol 100 MG Tab PO SCH (09:00)
== END 2021-02-15 14:30 | disposition home or self-care (01) | DRG 280 ==
LOC: DL.ED 00:40 → DL.MS 02:22
PROVIDERS: ADMIT Internal Medicine; ATTEND Internal Medicine
DX: I21.4 Non-ST elevation (NSTEMI) myocardial infarction (principal); H54.7 Unspecified visual loss; I50.9 Heart failure, unspecified; E78.00 Pure hypercholesterolemia, unspecified; I11.0 Hypertensive heart disease with heart failure; I25.2 Old myocardial infarction; I50.33 Acute on chronic diastolic (congestive) heart failure; N28.9 Disorder of kidney and ureter, unspecified; M81.0 Age-related osteoporosis without current pathological fracture; I13.0 Hypertensive heart and chronic kidney disease with heart failure and stage 1 through stage 4 chronic kidney disease, or unspecified chronic kidney disease; E11.9 Type 2 diabetes mellitus without complications; I25.10 Atherosclerotic heart disease of native coronary artery without angina pectoris; Z79.84 Long term (current) use of oral hypoglycemic drugs; Z79.02 Long term (current) use of antithrombotics/antiplatelets; Z79.82 Long term (current) use of aspirin; Z79.899 Other long term (current) drug therapy; N18.30 Chronic kidney disease, stage 3 unspecified; Z20.822 Contact with and (suspected) exposure to COVID-19; E11.22 Type 2 diabetes mellitus with diabetic chronic kidney disease; G20 Parkinson's disease; E78.5 Hyperlipidemia, unspecified; Z95.5 Presence of coronary angioplasty implant and graft; Z86.73 Personal history of transient ischemic attack (TIA), and cerebral infarction without residual deficits; Z90.49 Acquired absence of other specified parts of digestive tract; Z79.4 Long term (current) use of insulin; Z90.89 Acquired absence of other organs; Z98.890 Other specified postprocedural states
CPT/HCPCS: 36415; 80053; 84484; 85025; 85610; 85730; 93005; 96374; 99285; A9270 ×2; J1644 ×2; U0002; 80048; 82947; 97162-GP; 97165-GO; J1815-GY